=== PATIENT | female | born 2000 | race Caucasian/White ===

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

== ENCOUNTER 2019-01-21 00:02 | Emergency (ER) | payer BC, OTHER ==
[2019-01-21 00:08] VITALS: BP 135/73; PULSE 69; RESP 18; TEMP 97.8
--- NOTE | 2019-01-21 00:44 | ED ---
General Adult HPI - General Chief complaint: Urogenital Stated complaint: pelvic pain; blood in urine Time Seen by Provider: 01/21/19 00:11 Source: patient, RN notes reviewed, old records reviewed Mode of arrival: ambulatory Limitations: no limitations - History of Present Illness Initial comments: 18-year-old female patient past medical history of asthma, pseudoseizure disorder, borderline personality presents ED for chief complaint of suprapubic abdominal pain vaginal bleeding. Patient reports that her regular menstrual cycle ended 2 days ago. Patient points that today she began experiencing dysuria, mild amount of blood noted in her urine. Patient reports that her pains and suprapubic region. Denies any complaints at this time. Systemic: Pt denies fatigue, fever/chills, rash. Pt denies weakness, night sweats, weight loss. Neuro: Pt denies headache, visual disturbances, syncope or pre-syncope. HEENT: Pt denies ocular discharge or irritation, otalgia, rhinorrhea, pharyngitis or notable lymphadenopathy. Cardiopulmonary: Pt denies chest pain, SOB, heart palpitations, dyspnea on exertion. Abdominal/GI: Pt denies n/v/d. : Pt denies dysuria, burning w/ urination, frequency/urgency. Denies new onset urinary or bowel incontinence. MSK: Pt denies myalgia, loss of strength or function in extremities. Neuro: Pt denies new onset weakness, paresthesias. - Related Data Home Medications Medication Instructions Recorded Confirmed Gentle Iron 25mg 2 tab PO TID 05/30/18 11/14/18 Thyroid,Pork [Captain Cannery Tender Thyroid] 60 mg PO BID 05/30/18 11/14/18 Vitamin A-D-K 1 tab PO DAILY 05/30/18 11/14/18 Acetaminophen Tab [Tylenol] 1,000 mg PO Q6H PRN 11/14/18 11/14/18 Previous Rx's Medication Instructions Recorded Sulfamethox-Tmp 800-160Mg [Bactrim 1 tab PO Q12HR #14 tab 11/14/18 DS 800-160 mg] Nitrofurantoin Monohyd/M-Cryst 100 mg PO Q12HR 5 Days #10 cap 01/21/19 [Macrobid] Allergies Allergy/AdvReac Type Severity Reaction Status Date / Time milk Allergy Severe Rash/Hives Verified 01/21/19 00:08 amoxicillin [Amoxicillin] Allergy Anaphylaxis Verified 01/21/19 00:08 latex Allergy Rash/Hives Verified 01/21/19 00:08 Milk Containing Products Allergy Rash/Hives Verified 01/21/19 00:08 [Dairy] Review of Systems ROS Statement: Those systems with pertinent positive or pertinent negative responses have been documented in the HPI. ROS Other: All systems not noted in ROS Statement are negative. 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 anemia. boarderline personality disorder, History of Any Multi-Drug Resistant Organisms: None Reported Past Surgical History: Ear Surgery Additional Past Surgical History / Comment(s): PE tubes, Past Psychological History: ADD/ADHD, Anxiety, Depression Smoking Status: Current every day smoker Past Alcohol Use History: None Reported Past Drug Use History: None Reported General Exam - General Exam Comments Initial Comments: Constitutional: NAD, AOX3, Pt has pleasant affect. HEENT: NC/AT, trachea midline, neck supple, no lymphadenopathy. Posterior pharynx non erythematous, without exudates. External ears appear normal, without discharge. Mucous membranes moist. Eyes PERRLA, EOM intact. There is no scleral icterus. No pallor noted. Cardiopulmonary: RRR, no murmurs, rubs or gallops, no JVD noted. Lungs CTAB in anterior and posterior mirza. No peripheral edema. Abdominal exam: Abdomen soft and non-distended. Abdomen mildly tender to palpation suprapubic region.. Bowel sounds active in LLQ. No hepatosplenomegaly. No ecchymosis Neuro: CN II-XII grossly intact. No nuchal rigidity. No raccon eyes, no carpenter sign, no hemotympanum. No cervical spinal tenderness. MSK: No posterior calf tenderness bilaterally, homans sign negative bilaterally. Posterior tibialis and radial pulse +2 bilaterally. Sensation intact in upper and lower extremities. Full active ROM in upper and lower extremities, 5/5 stregnth. Limitations: no limitations Course Vital Signs 01/21/19 00:03 Temperature 97.8 F Pulse Rate 69 Respiratory 18 Rate Blood Pressure 135/73 O2 Sat by Pulse 99 Oximetry Medical Decision Making - Medical Decision Making 18-year-old female patient past medical history of asthma, pseudoseizure disorder, borderline personality presents ED for chief complaint of suprapubic abdominal pain vaginal bleeding. Patient reports that her regular menstrual cycle ended 2 days ago. Patient points that today she began experiencing dysuria, mild amount of blood noted in her urine. Patient reports that her pains and suprapubic region. Denies any complaints at this time. Patient vital signs displayed mild superpubic tenderness. Laboratory investigations revealed large leukocyte esterase, greater than 182 red blood cells and white blood cells. HCG negative. Patient be treated for a urinary tract infection. Will follow-up with her primary care provider next week. We'll turn ER physician worsens in any way. Case discussed with Dr. Gar. - Lab Data Lab Results 01/21/19 01/21/19 Range/Units 00:30 00:30 Urine Color Light Red Urine Appearance Cloudy H (Clear) Urine pH 6.0 (5.0-8.0) Ur Specific [place] 1.022 (1.001-1.035) Urine Protein 1+ H (Negative) Urine Glucose (UA) Negative (Negative) Urine Ketones Negative (Negative) Urine Blood Large H (Negative) Urine Nitrite Negative (Negative) Urine Bilirubin Negative (Negative) Urine Urobilinogen <2.0 (<2.0) mg/dL Ur Leukocyte Esterase Large H (Negative) Urine RBC >182 H (0-5) /hpf Urine WBC >182 H (0-5) /hpf Ur Squamous Epith Cells 3 (0-4) /hpf Urine Bacteria Rare H (None) /hpf Urine Mucus Occasional H (None) /hpf Urine HCG, Qual Not Detected (Not Detectd) Disposition Clinical Impression: Dysmenorrhea, UTI (urinary tract infection) Disposition: HOME SELF-CARE Condition: Stable Instructions (If sedation given, give patient instructions): Dysmenorrhea (ED), Urinary Tract Infection in Women (ED) Additional Instructions: take antibiotics as directed. Follow-up with primary care provider tomorrow. Return to ER if condition worsens in any way. Prescriptions: Nitrofurantoin Monohyd/M-Cryst [Macrobid] 100 mg PO Q12HR 5 Days #10 cap Is patient prescribed a controlled substance at d/c from ED?: No Referrals: Bill Ashley DO [Primary Care Provider] - 1-2 days
[2019-01-21 00:48] LABS: Appearance,Urine Cloudy (Clear); Bacteria,Urine Rare /hpf; Bilirubin,Urine Negative (Negative); Blood,Urine Large (Negative); Color,Urine Light Red; Glucose,Urine (UA) Negative (Negative); Ketones,Urine Negative (Negative); Leukocyte Esterase,Urine Large (Negative); Mucus,Urine Occasional /hpf; Nitrite,Urine Negative (Negative); Protein,Urine 1+ (Negative); RBC,Urine >182 /hpf (0-5); Specific Gravity,Urine 1.022 (1.001-1.035); Squamous Epithelial Cell,Urine 3 /hpf (0-4); Urobilinogen,Urine <2.0 mg/dL (<2.0)
[2019-01-21] MEDS ORDERED: NITROFURANTOIN MONOHYD/M-CRYST 100 MG CAP PO STA (01:05)
== END 2019-01-21 01:19 | disposition home or self-care (01) ==
LOC: EC 00:02
DX: N39.0 Urinary tract infection, site not specified (principal); N94.6 Dysmenorrhea, unspecified; E07.9 Disorder of thyroid, unspecified; D64.9 Anemia, unspecified; F17.200 Nicotine dependence, unspecified, uncomplicated; Z88.0 Allergy status to penicillin; Z91.011 Allergy to milk products; Z91.040 Latex allergy status; Z79.890 Hormone replacement therapy; Z79.899 Other long term (current) drug therapy; Z87.19 Personal history of other diseases of the digestive system
CPT/HCPCS: 81001; 81025; 87077; 87086; 87186; 99284

== ENCOUNTER 2019-05-21 15:42 | Emergency (ER) | payer BC, OTHER ==
[2019-05-21 15:55] VITALS: TEMP 98.7
[2019-05-21] MEDS ORDERED: METOCLOPRAMIDE 5 MG/ML 2 ML VIAL IVP STA (16:04)
[2019-05-21] MEDS ORDERED: diphenhydrAMINE 50 MG/ML 1 ML VIAL IVP STA (16:04)
[2019-05-21] MEDS ORDERED: SODIUM CHLORIDE 0.9% 2,000 ML IV STA (16:04)
--- NOTE | 2019-05-21 16:11 | ED ---
General Adult HPI - General Chief complaint: GI Bleed Stated complaint: vomiting up blood/Preg 17wks Time Seen by Provider: 05/21/19 15:57 Source: patient, RN notes reviewed Mode of arrival: ambulatory Limitations: no limitations - History of Present Illness Initial comments: This a 18-year-old female presents emergency Department chief complaint of rob sea vomiting. Patient states he vomited last week states that her last episode today that she self small amount of bright red blood. Patient has no complaints of abdominal pain denies any vaginal bleeding or vaginal discharge. Patient is A1 currently 17 weeks . Patient states that she seen Dr. Up. Patient does not that was normal though she started having difficulty with her asthma states that she has some coughing but that has improved. No chest pain no current shortness of breath. No fevers or chills. - Related Data Home Medications Medication Instructions Recorded Confirmed Gentle Iron 25mg 2 tab PO BID 05/30/18 05/21/19 Acetaminophen Tab [Tylenol] 1,000 mg PO Q6H PRN 11/14/18 05/21/19 [id number] Acid 1 cap PO DAILY 05/21/19 05/21/19 [-U Capsule (formulary)] Thyroid,Pork [Recoil Spring Winder Thyroid] 90 mg PO BID 05/21/19 05/21/19 Previous Rx's Medication Instructions Recorded Metoclopramide [Reglan] 10 mg PO TID PRN #10 tab 05/21/19 Allergies Allergy/AdvReac Type Severity Reaction Status Date / Time milk Allergy Severe Rash/Hives Verified 05/21/19 16:43 amoxicillin [Amoxicillin] Allergy Anaphylaxis Verified 05/21/19 16:43 latex Allergy Rash/Hives Verified 05/21/19 16:43 Milk Containing Products Allergy Rash/Hives Verified 05/21/19 16:43 [Dairy] Review of Systems ROS Statement: Those systems with pertinent positive or pertinent negative responses have been documented in the HPI. ROS Other: All systems not noted in ROS Statement are negative. 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 anemia. boarderline personality disorder, History of Any Multi-Drug Resistant Organisms: None Reported Past Surgical History: Ear Surgery Additional Past Surgical History / Comment(s): PE tubes, Past Psychological History: ADD/ADHD, Anxiety, Depression Smoking Status: Former smoker Past Alcohol Use History: None Reported Past Drug Use History: None Reported General Exam Limitations: no limitations General appearance: alert, in no apparent distress Head exam: Present: atraumatic, normocephalic, normal inspection Eye exam: Present: normal appearance, PERRL, EOMI. Absent: scleral icterus, conjunctival injection, periorbital swelling ENT exam: Present: normal exam, normal oropharynx, mucous membranes moist Neck exam: Present: normal inspection. Absent: tenderness, meningismus, lymphadenopathy Respiratory exam: Present: normal lung sounds bilaterally. Absent: respiratory distress, wheezes, rales, rhonchi, stridor Cardiovascular Exam: Present: regular rate, normal rhythm, normal heart sounds. Absent: systolic murmur, diastolic murmur, rubs, gallop, clicks GI/Abdominal exam: Present: soft, tenderness (Minimal epigastric), normal bowel sounds. Absent: distended, guarding, rebound, rigid Back exam: Absent: CVA tenderness (R), CVA tenderness (L) Neurological exam: Present: alert, oriented X3, CN II-XII intact Skin exam: Present: warm, dry, intact, normal color. Absent: rash Course Vital Signs 05/21/19 05/21/19 15:46 15:55 Temperature 98.7 F Pulse Rate 86 Respiratory 18 20 Rate Blood Pressure 101/63 O2 Sat by Pulse 98 Oximetry - Reevaluation(s) Reevaluation #1: 05/21/19 17:41 Patient reevaluated resting comfortably in bed updated and results has no complaints at this time. Medical Decision Making - Medical Decision Making Patient's presented for nausea vomiting. She is well hydrated 2 L of fluid, antiemetics given. Patient's labwork is unremarkable she has no complaints at this time. This may related to her or viral GI illness. - Lab Data Result diagrams: 05/21/19 16:24 05/21/19 16:24 Lab Results 05/21/19 05/21/19 05/21/19 Range/Units 16:24 16:24 16:45 WBC 7.8 (4.0-11.0) k/uL RBC 4.03 (3.80-5.40) m/uL Hgb 13.0 (11.4-16.0) gm/dL Hct 37.1 (34.0-46.0) % MCV 92.0 (80.0-100.0) fL MCH 32.3 (25.0-35.0) pg MCHC 35.2 (31.0-37.0) g/dL RDW 12.9 (11.5-15.5) % Plt Count 186 (150-450) k/uL Neutrophils % 74 % Lymphocytes % 18 % Monocytes % 5 % Eosinophils % 1 % Basophils % 0 % Neutrophils # 5.8 (1.3-7.7) k/uL Lymphocytes # 1.4 (1.0-4.8) k/uL Monocytes # 0.4 (0-1.0) k/uL Eosinophils # 0.1 (0-0.7) k/uL Basophils # 0.0 (0-0.2) k/uL Sodium 134 L (137-145) mmol/L Potassium 4.1 (3.5-5.1) mmol/L Chloride 105 (98-107) mmol/L Carbon Dioxide 22 (22-30) mmol/L Anion Gap 7 mmol/L BUN 6 L (7-17) mg/dL Creatinine 0.49 L (0.52-1.04) mg/dL Est GFR (CKD-EPI)AfAm >90 (>60 ml/min/1.73 sqM) Est GFR (CKD-EPI)NonAf >90 (>60 ml/min/1.73 sqM) Glucose 83 (74-99) mg/dL Calcium 9.7 (8.4-10.2) mg/dL Total Bilirubin 0.2 (0.2-1.3) mg/dL AST 20 (14-36) U/L ALT 12 (4-34) U/L Alkaline Phosphatase 67 (38-126) U/L Total Protein 7.1 (6.3-8.2) g/dL Albumin 4.3 (3.5-5.0) g/dL Amylase 68 (30-110) U/L Lipase 65 (23-300) U/L Urine Color Yellow Urine Appearance Clear (Clear) Urine pH 7.0 (5.0-8.0) Ur Specific [place] 1.014 (1.001-1.035) Urine Protein Negative (Negative) Urine Glucose (UA) Negative (Negative) Urine Ketones 2+ H (Negative) Urine Blood Negative (Negative) Urine Nitrite Negative (Negative) Urine Bilirubin Negative (Negative) Urine Urobilinogen <2.0 (<2.0) mg/dL Ur Leukocyte Esterase Negative (Negative) Disposition Clinical Impression: Nausea & vomiting Disposition: HOME SELF-CARE Condition: Stable Instructions (If sedation given, give patient instructions): Nausea and Vomiting in (ED) Additional Instructions: Please return to the Emergency Department if symptoms worsen or any other concer ns. Prescriptions: Metoclopramide [Reglan] 10 mg PO TID PRN #10 tab PRN Reason: GERD Is patient prescribed a controlled substance at d/c from ED?: No Referrals: Bill Ashley DO [Primary Care Provider] - 1-2 days Time of Disposition: 17:43
[2019-05-21 16:40] LABS: Basophils % (A) 0 %; Eosinophils # (A) 0.1 k/uL (0-0.7); Eosinophils % (A) 1 %; HCT 37.1 % (34.0-46.0); Lymphocytes # (A) 1.4 k/uL (1.0-4.8); Lymphocytes % (A) 18 %; MCH 32.3 pg (25.0-35.0); MCHC 35.2 g/dL (31.0-37.0); Mean Platelet Volume 9.1; Monocytes # (A) 0.4 k/uL (0-1.0); Monocytes % (A) 5 %; Neutrophils # (A) 5.8 k/uL (1.3-7.7); Neutrophils % (A) 74 %; Platelet Count 186 k/uL (150-450); RBC 4.03 m/uL (3.80-5.40); RDW 12.9 % (11.5-15.5); WBC 7.8 k/uL (4.0-11.0)
[2019-05-21 16:54] VITALS: RESP 20
[2019-05-21 17:02] LABS: ALT 12 U/L (4-34); AST 20 U/L (14-36); African American GFR (CKD) >90 (>60 ml/min/1.73 sqM); Albumin 4.3 g/dL (3.5-5.0); Alkaline Phosphatase 67 U/L (38-126); Amylase 68 U/L (30-110); Anion Gap 7 mmol/L; Blood Urea Nitrogen 6 mg/dL (7-17); Calcium 9.7 mg/dL (8.4-10.2); Carbon Dioxide 22 mmol/L (22-30); Chloride 105 mmol/L (98-107); Glucose 83 mg/dL (74-99); Non-African American GFR(CKD) >90 (>60 ml/min/1.73 sqM); Potassium 4.1 mmol/L (3.5-5.1); Sodium 134 mmol/L (137-145); Total Bilirubin 0.2 mg/dL (0.2-1.3); Total Protein 7.1 g/dL (6.3-8.2)
[2019-05-21 17:22] LABS: Appearance,Urine Clear (Clear); Bilirubin,Urine Negative (Negative); Blood,Urine Negative (Negative); Color,Urine Yellow; Glucose,Urine (UA) Negative (Negative); Ketones,Urine 2+ (Negative); Leukocyte Esterase,Urine Negative (Negative); Nitrite,Urine Negative (Negative); Protein,Urine Negative (Negative); Specific Gravity,Urine 1.014 (1.001-1.035); Urobilinogen,Urine <2.0 mg/dL (<2.0)
[2019-05-21 18:34] VITALS: BP 115/62; PULSE 88
== END 2019-05-21 18:40 | disposition home or self-care (01) ==
LOC: EC 15:42
DX: O21.9 Vomiting of pregnancy, unspecified (principal); O99.282 Endocrine, nutritional and metabolic diseases complicating pregnancy, second trimester; E07.9 Disorder of thyroid, unspecified; Z87.891 Personal history of nicotine dependence; Z3A.17 17 weeks gestation of pregnancy; Z79.899 Other long term (current) drug therapy; Z91.011 Allergy to milk products; Z88.0 Allergy status to penicillin; Z91.040 Latex allergy status
CPT/HCPCS: 36415; 80053; 82150; 83690; 85025; 81003; 99284; 96374; 96375; 96361 ×2; J1200; J2765

== ENCOUNTER → 2019-07-11 | Outpatient (CLI) | payer BC, OTHER | END | disposition home or self-care (01) | LOC: LABWHC1 08:08 | PROVIDERS: ATTEND Obstetrics & Gynecology | DX: O99.519 Diseases of the respiratory system complicating pregnancy, unspecified trimester (principal); R05 Cough ==

== ENCOUNTER 2019-07-13 17:10 | Outpatient (CLI) | payer BC, OTHER ==
[2019-07-13 18:15] LABS: Appearance,Urine Clear (Clear); Bacteria,Urine Rare /hpf; Bilirubin,Urine Negative (Negative); Blood,Urine Negative (Negative); Color,Urine Yellow; Glucose,Urine (UA) Negative (Negative); Ketones,Urine Negative (Negative); Leukocyte Esterase,Urine Small (Negative); Nitrite,Urine Negative (Negative); PH, Urine 6.5 (5.0-8.0); Protein,Urine Negative (Negative); RBC,Urine <1 /hpf (0-5); Specific Gravity,Urine 1.014 (1.001-1.035); Squamous Epithelial Cell,Urine 2 /hpf (0-4); Urobilinogen,Urine <2.0 mg/dL (<2.0); WBC,Urine 1 /hpf (0-5)
[2019-07-13 19:16] VITALS: BP 113/59; PULSE 96; RESP 16; TEMP 97.9
== END 2019-07-13 19:00 | disposition home or self-care (01) ==
LOC: FBPOP 17:10
PROVIDERS: ATTEND Obstetrics & Gynecology
DX: O99.89 Other specified diseases and conditions complicating pregnancy, childbirth and the puerperium (principal); R25.2 Cramp and spasm; Z3A.24 24 weeks gestation of pregnancy
CPT/HCPCS: 81001; 99213

== ENCOUNTER 2019-07-16 15:17 | Outpatient (CLI) | payer BC, OTHER ==
[2019-07-16 15:55] LABS: Amorphous Sediment,Urine Few /hpf; Appearance,Urine Cloudy (Clear); Bilirubin,Urine Negative (Negative); Blood,Urine Negative (Negative); Color,Urine Yellow; Glucose,Urine (UA) Negative (Negative); Ketones,Urine Negative (Negative); Leukocyte Esterase,Urine Trace (Negative); Nitrite,Urine Negative (Negative); Protein,Urine Negative (Negative); RBC,Urine 2 /hpf (0-5); Specific Gravity,Urine 1.018 (1.001-1.035); Squamous Epithelial Cell,Urine 3 /hpf (0-4); Urobilinogen,Urine <2.0 mg/dL (<2.0); WBC,Urine 3 /hpf (0-5)
[2019-07-16 16:14] VITALS: BP 121/57; PULSE 106; RESP 16; TEMP 97
--- NOTE | 2019-07-26 13:02 | P.MSEPDOC ---
Presenting Problems - Arrival Data Date of Arrival on Unit: 07/16/19 Time of Arrival on Unit: 15:17 Mode of Transport: Wheelchair - Complaint OB-Reason for Admission/Chief Complaint: Pain Comment: Cramping in left flank, lower back and left pelvis x 2 hrs, worsening after walking up[place] today. Medical History - Information : 2 Para: 0 Term: 0 : 0 Abortions: Spontaneous or Elective: 0 Number of Living Children: 0 - Gestational Age Gestational Age by BLADIMIR (wks/days): 24 Weeks and 6 Days Review of Systems - Review of Systems Constitutional: No problems Breast: No problems ENT: No problems Cardiovascular: No problems Respiratory: No problems Gastrointestinal: No problems Genitourinary: Urgency, Increased frequency Musculoskeletal: No problems Neurological: No problems Skin: No problems Vital Signs - Temperature Temperature: 97 F Temperature Source: Temporal Artery Scan - Pulse Right Sitting Brachial Pulse Rate: 106 Pulse Assessment Method: Automatic Cuff - Respirations Respiratory Rate: 16 Oxygen Delivery Method: Room Air O2 Sat by Pulse Oximetry: 98 - Blood Pressure Right Arm Sitting Blood Pressure: 121/57 Blood Pressure Mean: 78 Blood Pressure Source: Automatic Cuff Medical Screen Scoring (Pre) - Cervical Exam Dilation: Exam Deferred Effacement: Exam Deferred Membranes: Intact - Uterine Contractions Frequency: N/A Duration: N/A Intensity: N/A - Maternal Vital Signs Maternal Temperature: N/A Maternal Blood Pressure: N/A Signs of Preeclampsia: N/A Maternal Respirations: N/A - Maternal Trauma Maternal Trauma: N/A - Assessment - Baby A Baseline FHR: 150 Position: N/A Station: N/A - Total Score - Baby A Total Score - Baby A: 0 - Total Score - Baby B Total Score - Baby B: 0 - Total Score - Baby C Total Score - Baby C: 0 - Level of Risk - Baby A Level of Risk - Baby A: Low (0-5) - Level of Risk - Baby B Level of Risk - Baby B: Low (0-5) - Level of Risk - Baby C Level of Risk - Baby C: Low (0-5) Physician Notification (Pre) - Physician Notified Physician Notified Date: 07/16/19 Physician Notified Time: 16:05 New Order Received: Yes - Notification Comment Comment: Christie Nava, advsd , [birth year] 07/15, reports to triage c/o cramping x 2 hrs, worsening after walking uphill. FHT 150-160, abd soft, tenderness in L flank and L pelvic, UA results provided. Pt in triage 3 days ago with same concern. Dr. Nava orders urine culture, pt to be on pelvic rest and follow up with Dr. Up. Disposition - Disposition OB Disposition: Discharge to home, Written follow up instructions reviewed Discharge Date: 07/16/19 Discharge Time: 16:14 I agree with the RN Medical Screening Exam: Yes Risk & Benefit of care provided described in d/c instruction: Yes Diagnosis: PAIN, UNSPECIFIED
== END 2019-07-16 16:14 | disposition home or self-care (01) ==
LOC: FBPOP 15:17
PROVIDERS: ATTEND Obstetrics & Gynecology Obstetrics
DX: O99.89 Other specified diseases and conditions complicating pregnancy, childbirth and the puerperium (principal); R52 Pain, unspecified
CPT/HCPCS: 81001; 87086; 99213

== ENCOUNTER 2019-09-13 13:36 | Outpatient (CLI) | payer BC, OTHER ==
[2019-09-13 14:27] VITALS: BP 115/56; PULSE 103; RESP 16; TEMP 98.1
--- NOTE | 2019-09-27 08:49 | P.MSEPDOC ---
Presenting Problems - Arrival Data Date of Arrival on Unit: 09/13/19 Time of Arrival on Unit: 13:36 Mode of Transport: Ambulatory - Complaint OB-Reason for Admission/Chief Complaint: Decreased Movement Medical History - Information : 2 Para: 0 Term: 0 : 0 Abortions: Spontaneous or Elective: 1 Number of Living Children: 0 - Gestational Age Gestational Age by BLADIMIR (wks/days): 33 Weeks and 2 Days Review of Systems - Review of Systems Constitutional: No problems Breast: No problems ENT: No problems Cardiovascular: No problems Respiratory: No problems Gastrointestinal: No problems Genitourinary: No problems Musculoskeletal: No problems Neurological: No problems Skin: No problems Vital Signs - Temperature Temperature: 98.1 F Temperature Source: Temporal Artery Scan - Pulse Pulse Oximetery Pulse Rate: 103 Pulse Assessment Method: Pulse Oximetry - Respirations Respiratory Rate: 16 Oxygen Delivery Method: Room Air - Blood Pressure Right Arm Blood Pressure: 115/56 Blood Pressure Mean: 75 Blood Pressure Source: Automatic Cuff Medical Screen Scoring (Pre) - Cervical Exam Dilation: Exam Deferred Effacement: Exam Deferred Membranes: Intact - Uterine Contractions Frequency: N/A Duration: N/A Intensity: N/A - Maternal Vital Signs Maternal Temperature: N/A Maternal Blood Pressure: N/A Signs of Preeclampsia: N/A Maternal Respirations: N/A - Maternal Trauma Maternal Trauma: N/A - Assessment - Baby A Baseline FHR: 150 Heart Rate - NICHD Category: Category I (Normal) = 0 NST: Reactive Position: N/A Station: N/A - Total Score - Baby A Total Score - Baby A: 0 - Total Score - Baby B Total Score - Baby B: 0 - Total Score - Baby C Total Score - Baby C: 0 - Level of Risk - Baby A Level of Risk - Baby A: Low (0-5) - Level of Risk - Baby B Level of Risk - Baby B: Low (0-5) - Level of Risk - Baby C Level of Risk - Baby C: Low (0-5) Physician Notification (Pre) - Physician Notified Physician Notified Date: 09/13/19 Physician Notified Time: 14:14 New Order Received: Yes Disposition - Disposition OB Disposition: Discharge to home Discharge Date: 09/13/19 Discharge Time: 14:20 I agree with the RN Medical Screening Exam: Yes Risk & Benefit of care provided described in d/c instruction: Yes Diagnosis: decreased movement
== END 2019-09-13 14:20 | disposition home or self-care (01) ==
LOC: FBPOP 13:36
PROVIDERS: ATTEND Obstetrics & Gynecology
DX: O36.8130 Decreased fetal movements, third trimester, not applicable or unspecified (principal); Z3A.33 33 weeks gestation of pregnancy
CPT/HCPCS: 59025; 99213

== ENCOUNTER 2019-09-27 13:19 | Outpatient (CLI) | payer BC, OTHER ==
[2019-09-27 15:27] VITALS: BP 105/62; PULSE 95; RESP 16; TEMP 98.4
--- NOTE | 2019-10-08 10:12 | P.MSEPDOC ---
Presenting Problems - Arrival Data Date of Arrival on Unit: 09/27/19 Time of Arrival on Unit: 13:36 Mode of Transport: Wheelchair - Complaint OB-Reason for Admission/Chief Complaint: Rule Out PROM Comment: pt arrived to unit c/o a gush of fluid times one approximately 30 minutes ago and states im not sure if my water broke. pt denies any leaking at this time and denies any contractions Medical History - Information : 1 Para: 0 Term: 0 : 0 Abortions: Spontaneous or Elective: 0 Number of Living Children: 0 - Gestational Age Gestational Age by BLADIMIR (wks/days): 35 Weeks and 2 Days Review of Systems - Review of Systems Constitutional: No problems Breast: No problems ENT: No problems Cardiovascular: No problems Respiratory: No problems Gastrointestinal: No problems Genitourinary: No problems Musculoskeletal: No problems Neurological: No problems Skin: No problems Vital Signs - Temperature Temperature: 98.4 F Temperature Source: Oral - Pulse Right Brachial Pulse Rate: 95 Pulse Assessment Method: Automatic Cuff - Respirations Respiratory Rate: 16 Oxygen Delivery Method: Room Air O2 Sat by Pulse Oximetry: 97 - Blood Pressure Right Arm Blood Pressure: 105/62 Blood Pressure Mean: 76 Blood Pressure Source: Automatic Cuff Medical Screen Scoring (Pre) - Cervical Exam Dilation: 0 cm = 0 Membranes: Intact - Uterine Contractions Frequency: N/A Duration: N/A Intensity: N/A - Maternal Vital Signs Maternal Temperature: N/A Maternal Blood Pressure: N/A Signs of Preeclampsia: N/A Maternal Respirations: N/A - Maternal Trauma Maternal Trauma: N/A - Assessment - Baby A Baseline FHR: 145 Heart Rate - NICHD Category: Category I (Normal) = 0 NST: Reactive Position: N/A Station: N/A - Total Score - Baby A Total Score - Baby A: 0 - Total Score - Baby B Total Score - Baby B: 0 - Total Score - Baby C Total Score - Baby C: 0 - Level of Risk - Baby A Level of Risk - Baby A: Low (0-5) - Level of Risk - Baby B Level of Risk - Baby B: Low (0-5) - Level of Risk - Baby C Level of Risk - Baby C: Low (0-5) Physician Notification (Pre) - Physician Notified Physician Notified Date: 09/27/19 Physician Notified Time: 14:12 New Order Received: Yes - Notification Comment Comment: amnisure test done and negative cervix closed reactive nst no contractions. may discharge to home with instructions Disposition - Disposition OB Disposition: Discharge to home Discharge Date: 09/27/19 Discharge Time: 14:22 I agree with the RN Medical Screening Exam: Yes Risk & Benefit of care provided described in d/c instruction: Yes Diagnosis: false labor
== END 2019-09-27 14:22 | disposition home or self-care (01) ==
LOC: FBPOP 13:19
PROVIDERS: ATTEND Obstetrics & Gynecology
DX: O47.9 False labor, unspecified (principal); Z3A.35 35 weeks gestation of pregnancy
CPT/HCPCS: 59025; 84112; 99213

== ENCOUNTER 2019-10-08 00:24 | Outpatient (CLI) | payer BC, OTHER ==
[2019-10-08 01:23] VITALS: BP 125/60; PULSE 91; RESP 16; TEMP 97.9
--- NOTE | 2019-11-22 07:37 | P.MSEPDOC ---
Presenting Problems - Arrival Data Date of Arrival on Unit: 10/08/19 Time of Arrival on Unit: 00:24 Mode of Transport: Ambulatory - Complaint OB-Reason for Admission/Chief Complaint: Pain Comment: Right sided lower back pain, 11/17. Pt on macrobid for UTI started 10/06/19 Medical History - Information : 2 Para: 0 Term: 0 : 0 Abortions: Spontaneous or Elective: 0 Number of Living Children: 0 - Gestational Age Gestational Age by BLADIMIR (wks/days): 36 Weeks and 6 Days Review of Systems - Review of Systems Constitutional: No problems Breast: No problems ENT: No problems Cardiovascular: No problems Respiratory: No problems Gastrointestinal: No problems Genitourinary: No problems Musculoskeletal: No problems Neurological: No problems Skin: No problems Vital Signs - Temperature Temperature: 97.9 F Temperature Source: Oral - Pulse Brachial Pulse Rate: 91 Pulse Assessment Method: Automatic Cuff - Respirations Respiratory Rate: 16 Oxygen Delivery Method: Room Air O2 Sat by Pulse Oximetry: 97 - Blood Pressure Right Arm Blood Pressure: 125/60 Blood Pressure Mean: 81 Blood Pressure Source: Automatic Cuff Medical Screen Scoring (Pre) - Cervical Exam Dilation: Exam Deferred Effacement: Exam Deferred Membranes: Intact - Uterine Contractions Frequency: > 5 minutes apart = 1 Duration: > 40 seconds = 2 Intensity: N/A - Maternal Vital Signs Maternal Temperature: N/A Maternal Blood Pressure: N/A Signs of Preeclampsia: N/A Maternal Respirations: N/A - Maternal Trauma Maternal Trauma: N/A - Assessment - Baby A Baseline FHR: 130 Heart Rate - NICHD Category: Category I (Normal) = 0 NST: Reactive - Total Score - Baby A Total Score - Baby A: 3 - Total Score - Baby B Total Score - Baby B: 3 - Total Score - Baby C Total Score - Baby C: 3 - Level of Risk - Baby A Level of Risk - Baby A: Low (0-5) - Level of Risk - Baby B Level of Risk - Baby B: Low (0-5) - Level of Risk - Baby C Level of Risk - Baby C: Low (0-5) Physician Notification (Pre) - Physician Notified Physician Notified Date: 10/08/19 Physician Notified Time: 00:51 New Order Received: Yes - Notification Comment Comment: Orders to d/c pt home at this time, call the office wednesday if still having s/s of UTI for another UA. Disposition - Disposition OB Disposition: Discharge to home, Written follow up instructions reviewed Discharge Date: 10/08/19 Discharge Time: 00:56 I agree with the RN Medical Screening Exam: Yes Risk & Benefit of care provided described in d/c instruction: Yes Diagnosis: back pain in
== END 2019-10-08 00:56 | disposition home or self-care (01) ==
LOC: FBPOP 00:24
PROVIDERS: ATTEND Obstetrics & Gynecology
DX: O99.89 Other specified diseases and conditions complicating pregnancy, childbirth and the puerperium (principal); Z3A.36 36 weeks gestation of pregnancy
CPT/HCPCS: 59025; 99213

== ENCOUNTER 2019-10-25 14:52 | Outpatient (CLI) | payer BC, OTHER ==
[2019-10-25 19:32] VITALS: BP 123/57; PULSE 91; RESP 18; TEMP 98.1
--- NOTE | 2019-11-22 07:47 | P.MSEPDOC ---
Presenting Problems - Arrival Data Date of Arrival on Unit: 10/25/19 Time of Arrival on Unit: 14:52 Mode of Transport: Ambulatory - Complaint OB-Reason for Admission/Chief Complaint: Possible Onset of Labor Comment: pt presents with contractions every 5 min per patient rating at 6/10 Medical History - Information : 1 Para: 0 Term: 0 : 0 Abortions: Spontaneous or Elective: 0 Number of Living Children: 0 - Gestational Age Gestational Age by BLADIMIR (wks/days): 39 Weeks and 2 Days Review of Systems - Review of Systems Constitutional: No problems Breast: No problems ENT: No problems Cardiovascular: No problems Respiratory: No problems Gastrointestinal: No problems Genitourinary: No problems Musculoskeletal: No problems Neurological: No problems Skin: No problems Vital Signs - Temperature Temperature: 98.1 F Temperature Source: Temporal Artery Scan - Pulse Right Brachial Pulse Rate: 91 Pulse Assessment Method: Automatic Cuff - Respirations Respiratory Rate: 18 Oxygen Delivery Method: Room Air - Blood Pressure Right Arm Blood Pressure: 123/57 Blood Pressure Mean: 79 Blood Pressure Source: Automatic Cuff Medical Screen Scoring (Pre) - Cervical Exam Dilation: 1-3 cm = 1 Effacement: Exam Deferred Membranes: Intact - Uterine Contractions Frequency: > 5 minutes apart = 1 Duration: N/A Intensity: N/A - Maternal Vital Signs Maternal Temperature: N/A Maternal Blood Pressure: N/A Signs of Preeclampsia: N/A Maternal Respirations: N/A - Maternal Trauma Maternal Trauma: N/A - Assessment - Baby A Baseline FHR: 140 Heart Rate - NICHD Category: Category I (Normal) = 0 NST: Reactive Position: N/A Station: N/A - Total Score - Baby A Total Score - Baby A: 2 - Total Score - Baby B Total Score - Baby B: 2 - Total Score - Baby C Total Score - Baby C: 2 - Level of Risk - Baby A Level of Risk - Baby A: Low (0-5) - Level of Risk - Baby B Level of Risk - Baby B: Low (0-5) - Level of Risk - Baby C Level of Risk - Baby C: Low (0-5) Physician Notification (Pre) - Physician Notified Physician Notified Date: 10/25/19 Physician Notified Time: 17:00 New Order Received: Yes - Notification Comment Comment: discharge pt home, call office tomorrow to make appt in office to discuss induction Disposition - Disposition OB Disposition: Triage, Discharge to home Discharge Date: 10/25/19 Discharge Time: 17:10 I agree with the RN Medical Screening Exam: Yes Risk & Benefit of care provided described in d/c instruction: Yes Diagnosis: false labor
== END 2019-10-25 17:10 | disposition home or self-care (01) ==
LOC: FBPOP 14:52
PROVIDERS: ATTEND Obstetrics & Gynecology
DX: O47.1 False labor at or after 37 completed weeks of gestation (principal); Z3A.39 39 weeks gestation of pregnancy
CPT/HCPCS: 59025; 84112; 99213

== ENCOUNTER 2019-10-30 15:13 | Inpatient (IN) | payer BC, OTHER ==
[2019-10-31] MEDS: LACTATED RINGERS 1,000 ML IV SCH ×4 (06:07→18:54)
[2019-10-31] MEDS ORDERED: TERBUTALINE 1 MG/ML VIAL SQ PRN (06:10)
[2019-10-31] MEDS ORDERED: METHYLERGONOVINE 0.2 MG/ML 1 ML AMP IM PRN (06:10)
[2019-10-31] MEDS ORDERED: LIDOCAINE 0.5% (PF) 5 MG/ML (50 ML SDV) SQ PRN (06:10)
[2019-10-31] MEDS ORDERED: CARBOPROST TROMETHAMINE 250 MCG/ML 1 ML AMP IM PRN (06:10)
[2019-10-31] MEDS ORDERED: OXYTOCIN 10 UNIT/ML 1 ML VIAL IM PRN (06:10)
[2019-10-31] MEDS ORDERED: OXYTOCIN 30 UNITS/500 ML NS 30 UNIT in SALINE 1 500ML.BAG IV SCH (06:15)
[2019-10-31 06:32] LABS: Basophils # (A) 0.1 k/uL (0-0.2); Basophils % (A) 1 %; Eosinophils # (A) 0.1 k/uL (0-0.7); Eosinophils % (A) 1 %; HCT 38.4 % (34.0-46.0); HGB 12.9 gm/dL (11.4-16.0); Lymphocytes # (A) 1.8 k/uL (1.0-4.8); Lymphocytes % (A) 21 %; MCH 31.2 pg (25.0-35.0); MCHC 33.4 g/dL (31.0-37.0); MCV 93.4 fL (80.0-100.0); Mean Platelet Volume 9.2; Monocytes # (A) 0.7 k/uL (0-1.0); Monocytes % (A) 9 %; Neutrophils # (A) 5.8 k/uL (1.3-7.7); Neutrophils % (A) 67 %; Platelet Count 192 k/uL (150-450); RBC 4.12 m/uL (3.80-5.40); WBC 8.6 k/uL (4.0-11.0)
--- NOTE | 2019-10-31 11:04 | P.HPOB ---
History of Present Illness H&P Date: 10/31/19 Chief Complaint: Maternal siezure disorder This is a 19-year-old 2 para 0010 woman with an estimated due date of 10/30/2019 based on first trimester ultrasound who is admitted at 40-0/7 weeks gestation for induction of labor. Her has been complicated by a history of seizure disorder. 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 She was restarted on her Keppra seizure prophylaxis early in however has had a difficult time remaining compliant with this medication. Most recent Levels drawn at approximately 36 weeks were subtherapeutic. She reports she has been back on her Keppra consistently for approximately 2 weeks of she did not take it today. Her last reported seizure activity was on between 20 and 25 weeks. She also has a history of significant depression and has been intermittently taking Zoloft. She has hypothyroidism and asthma which also have been monitored. She has been similarly on noncompliant with her thyroid medications and in the third trimester her TSH was 7.6. She again reports having restarted her thyroid medication in the last 2 weeks. She uses updrafts and an albuterol inhaler as needed for her asthma. She has been monitored by testing with NSTs weekly which have been reassuring. Obstetric history is significant for 2018 first trimester miscarriage. Laboratory data: Blood type A-, antibody screen negative, rubella immune, VDRL nonreactive, hepatitis B surface antigen negative, HIV negative, gonorrhea and c linic cultures negative, diabetes screening within normal limits, group B strep cultures negative. Recent TSH on 10/02/2019 was 7.62. Review of Systems Constitutional: Reports as per HPI 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. anemia. History of Any Multi-Drug Resistant Organisms: None Reported Past Surgical History: Ear Surgery Additional Past Surgical History / Comment(s): PE tubes, Past Anesthesia/Blood Transfusion Reactions: No Reported Reaction Past Psychological History: ADD/ADHD, Anxiety, Bipolar, Depression Additional Psychological History / Comment(s): borderline personality disorder Smoking Status: Former smoker Past Alcohol Use History: None Reported Past Drug Use History: None Reported - Past Family History Mother Family Medical History: No Reported History Medications and Allergies Home Medications Medication Instructions Recorded Confirmed Type Gentle Iron 25mg 2 tab PO TID 05/30/18 10/31/19 History Ijo-Wvya-Arimk Acid 1 cap PO DAILY 05/21/19 10/31/19 History [-U Capsule (formulary)] Thyroid,Pork [Activity Aide Thyroid] 90 mg PO BID 05/21/19 10/31/19 History levETIRAcetam [Keppra] 500 mg PO DAILY 07/16/19 10/31/19 History Sertraline [Zoloft] 50 mg PO DAILY 09/27/19 10/31/19 History ARIPiprazole [Abilify] 5 mg PO DAILY 10/28/19 10/31/19 History Albuterol Sulfate (Bottle) 0 mg INHALATION PRN 10/31/19 History [Ventolin] Allergies Allergy/AdvReac Type Severity Reaction Status Date / Time milk Allergy Severe Rash/Hives Verified 10/31/19 06:08 amoxicillin [Amoxicillin] Allergy Anaphylaxis Verified 10/31/19 06:08 latex Allergy Rash/Hives Verified 10/31/19 06:08 Milk Containing Products Allergy Rash/Hives Verified 10/31/19 06:08 [Dairy] Exam Vital Signs Temp Pulse Resp BP Pulse Ox 10/31/19 06:12 97.2 F L 96 18 114/77 98 Intake and Output 10/30/19 10/31/19 10/31/19 22:59 06:59 14:59 Other: Weight 86.183 kg This is a pleasant, comfortable appearing and visibly gravid female. Targeted physical exam is performed. The cervix is 3 cm dilated, 60% effaced and the vertex in the -2 station. heart tones are category 1. She is irregularly tammie with Pitocin at 8 mU/m. Results Result Diagrams: 10/31/19 06:12 Assessment and Plan (1) Term Current Visit: Yes Status: Acute Code(s): Z34.90 - ENCNTR FOR SUPRVSN OF NORMAL , UNSP, UNSP TRIMESTER SNOMED Code(s): 38019192 (2) Seizure disorder during Current Visit: Yes Status: Acute Code(s): O99.350 - DISEASES OF THE NERVOUS SYS COMP , UNSP TRIMESTER; G40.909 - EPILEPSY, UNSP, NOT INTRACTABLE, WITHOUT STATUS EPILEPTICUS SNOMED Code(s): 748605469 (3) Hypothyroid Current Visit: Yes Status: Acute Code(s): E03.9 - HYPOTHYROIDISM, UNSPECIFIED SNOMED Code(s): 41715640 (4) Asthma Current Visit: Yes Status: Acute Code(s): J45.909 - UNSPECIFIED ASTHMA, UNCOMPLICATED SNOMED Code(s): 106893952 (5) Depression Current Visit: Yes Status: Acute Code(s): F32.9 - MAJOR DEPRESSIVE DISORDER, SINGLE EPISODE, UNSPECIFIED SNOMED Code(s): 48291620 Plan: 19-year-old 2 para 0 woman admitted at 40 weeks gestation for induction of labor. complicated by seizure disorder and hypothyroidism inconsistently treated throughout . No recent seizure activity. Seizure precautions are in place. Early epidural for pain and anxiety control. We will monitor closely for thyroid status as well as depression and seizure activity following delivery. Pediatric team has been notified regarding maternal medical conditions and medications. status is currently reassuring by external monitoring. She is group B strep negative and Rh-. environmental services aide consult post delivery.
[2019-10-31] MEDS ORDERED: SODIUM CHLORIDE 0.9% 100 ML BAG ONE (11:31)
[2019-10-31] MEDS ORDERED: fentaNYL (PF) 50 MCG/ML 5 ML AMP ONE (11:31)
[2019-10-31] MEDS ORDERED: ROPIVACAINE 5MG/ML 20ML VIAL ONE (11:31)
[2019-10-31] MEDS ORDERED: LANOLIN CREAM 5 GM TUBE TOPICAL PRN (18:14)
[2019-10-31] MEDS ORDERED: diphenhydrAMINE 50 MG/ML 1 ML VIAL IVP PRN ×2 (18:14)
[2019-10-31] MEDS ORDERED: ACETAMINOPHEN TAB 325 MG TAB PO PRN (18:14)
[2019-10-31] MEDS ORDERED: ZOLPIDEM 5 MG TAB PO PRN (18:14)
[2019-10-31] MEDS ORDERED: diphenhydrAMINE 25 MG CAP PO PRN (18:14)
[2019-10-31] MEDS ORDERED: diphenhydrAMINE 50 MG CAP PO PRN (18:14)
[2019-10-31] MEDS ORDERED: HYDROCORTISONE 2.5% RECTAL CREAM 30 GM TUBE RECTAL PRN (18:14)
[2019-10-31] MEDS ORDERED: SIMETHICONE 80 MG CHEWABLE PO PRN (18:14)
[2019-10-31] MEDS ORDERED: BENZOCAINE/MENTHOL SPRAY 1 GM/SPRAY AEROSOL TOPICAL PRN (18:14)
--- NOTE | 2019-10-31 18:14 | P.PROBDLV ---
Vaginal Delivery Note - . Vaginal Delivery Note: Lungs: Female in the vertex left occiput anterior position with Apgars of 8 at 1 minute and 9 at 5 minutes weighing 7 lbs. 11 oz., 3490 g. Intact, three- vessel cord placenta. Second-degree perineal laceration with focal extension. Right labial laceration. EBL approximately 300 mL's. Delivery summary: This is a 19-year-old 2 para 0010 woman who is admitted at 40 weeks gestation for induction of labor. has been complicated by maternal seizure disorder, hypothyroidism, depression and asthma. Seizure precautions were implemented throughout her labor and she received an early epidural. At the time of rupture of membranes at 10:20 AM the cervix was 3 cm dilated and clear fluid was noted. Pitocin was increased per protocol and she reached complete cervical dilation by 1615. She commenced pushing with moderate maternal effort. She did have some variable appearing heart rate decelerations during the second stage. When she reached she was repositioned, prepped and draped in the modified Mauri position. With additional maternal effort the head delivered from the left occiput anterior position. A nuchal cord 1 was reduced. The anterior and posterior shoulders rapidly. The rest the infant was delivered onto the field and the nose and mouth were further bulb suctioned. There was terminal meconium noted. The was placed on the maternal abdomen where she was further bulb suctioned. The cord was clamped and cut and the fundus taken to the warmer. Cord blood was collected for maternal Rh- status. The vagina was inspected and a second-degree deep laceration was noted. This was infused with lidocaine in the usual fashion. 3-0 Vicryl suture was utilized to repair the second-degree laceration in the usual fashion. The right labial laceration was reapproximated with an additional 3-0 Vicryl suture. There was additional oozing from the apex of the os second-degree laceration in the sulcus. Additional deep 3-0 Vicryl suture was utilized to place additional stitch at the apex. Hemostasis was then noted. An intact, three-vessel cord placenta was then delivered after an approximately 10 minute third stage of labor. The uterus was massaged and was noted to be firm and the patient received Pitocin following the third stage of labor. The perineal repair was reinspected and was noted to be hemostatic. Rectal examination was performed and the rectal mucosa was intact with no palpable suture material. All counts were then on noted to be correct. EBL was approximately 300 mL's. During the repair the infant did have some grunting and was taken to the nursery for further evaluation and pulse oximetry. Need for further evaluation was explained to the patient and all questions were answered.
[2019-10-31] MEDS ORDERED: OXYTOCIN 20 UNITS/1000 ML NS 1,000 ML IV SCH (18:15)
[2019-10-31] MEDS: IBUPROFEN 600 MG TAB PO PRN (18:52)
[2019-10-31] MEDS ORDERED: levETIRAcetam 500 MG TAB PO SCH (20:00)
[2019-10-31] MEDS: levETIRAcetam 500 MG TAB PO SCH (21:08)
[2019-10-31] MEDS: SENNOSIDES-DOCUSATE SODIUM 1 EACH TAB PO SCH (21:09)
[2019-10-31] MEDS: THYROID, PORK 30 MG TAB PO SCH (21:12)
[2019-10-31] MEDS: ARIPiprazole 5 MG TAB PO SCH (21:13)
[2019-10-31] MEDS: SERTRALINE 50 MG TAB PO SCH (21:13)
[2019-11-01] MEDS: IBUPROFEN 600 MG TAB PO PRN ×4 (03:53→20:36)
[2019-11-01 04:50] LABS: Basophils % (A) 0 %; Eosinophils # (A) 0.1 k/uL (0-0.7); Eosinophils % (A) 0 %; HCT 32.9 % (34.0-46.0); HGB 10.9 gm/dL (11.4-16.0); Lymphocytes % (A) 16 %; MCH 31.3 pg (25.0-35.0); MCHC 33.2 g/dL (31.0-37.0); MCV 94.4 fL (80.0-100.0); Mean Platelet Volume 9.7; Monocytes # (A) 0.9 k/uL (0-1.0); Monocytes % (A) 7 %; Neutrophils # (A) 9.5 k/uL (1.3-7.7); Neutrophils % (A) 75 %; Platelet Count 172 k/uL (150-450); RBC 3.48 m/uL (3.80-5.40); RDW 13.6 % (11.5-15.5); WBC 12.7 k/uL (4.0-11.0)
--- NOTE | 2019-11-01 07:59 | P.PNOBGVD ---
Subjective - Subjective Principal diagnosis: day 1 Interval history: Feeling well, complaining of some moderate cramping. No seizure activity or aura since delivery. Patient reports: Reports appetite normal, Reports voiding normally, Reports pain well controlled, Reports ambulating normally [place]: doing well, bottle feeding Objective - Latest Vital Signs Latest vital signs: Vital Signs Temp Pulse Resp BP Pulse Ox 11/01/19 04:00 98.2 F 76 18 91/57 95 11/01/19 00:00 98.6 F 76 18 105/55 95 10/31/19 20:11 18 108/59 98 10/31/19 19:41 79 18 120/71 10/31/19 19:11 46 L 17 116/69 10/31/19 18:56 78 16 116/60 10/31/19 18:41 76 18 121/63 10/31/19 18:26 51 L 16 108/57 10/31/19 18:11 99.0 F 79 16 111/71 Intake and Output 10/31/19 11/01/19 11/01/19 22:59 06:59 14:59 Other: # Voids 1 1 - Exam Lungs: bilateral: normal Extremities: Present: normal. Absent: tenderness Abdomen: Present: normal appearance, soft. Absent: distention Uterus: Present: normal, firm. Absent: tenderness - Labs Labs: Abnormal Lab Results - Last 24 Hours (Table) 11/01/19 Range/Units 04:27 WBC 12.7 H (4.0-11.0) k/uL RBC 3.48 L (3.80-5.40) m/uL Hgb 10.9 L (11.4-16.0) gm/dL Hct 32.9 L (34.0-46.0) % Neutrophils # 9.5 H (1.3-7.7) k/uL Assessment and Plan (1) Term Current Visit: Yes Status: Acute Code(s): Z34.90 - ENCNTR FOR SUPRVSN OF NORMAL , UNSP, UNSP TRIMESTER SNOMED Code(s): 70658471 (2) Seizure disorder during Narrative/Plan: Patient reports active seizure activity prior to and in the early portions of the . She was started on Keppra to help control this is her seizures have been reported as stress induced. At this point I strongly r ecommend she restart her antiseizure medications as prescribed by her neurologist. We discussed implications for breast-feeding however my concern was reviewed with a maternal and safety issue should she have a seizure activity while caring for the baby. I encouraged to follow-up with her neurologist once discharge from the hospital to discuss medication management but I do not feel comfortable myself changing her antiseizure medications. Her plan at this time is to use the breast pump to stimulate breast milk production and dump this until which time she can meet with her neurologist to discuss medication changes. Both she and the patient's mother seemed to understand the discussion and agreed to restart her Keppra at this time. Current Visit: Yes Status: Acute Code(s): O99.350 - DISEASES OF THE NERVOUS SYS COMP , UNSP TRIMESTER; G40.909 - EPILEPSY, UNSP, NOT INTRACTABLE, WITHOUT STATUS EPILEPTICUS SNOMED Code(s): 873816281 (3) Hypothyroid Narrative/Plan: Check thyroid function studies and restart on thyroid medications today. Current Visit: Yes Status: Acute Code(s): E03.9 - HYPOTHYROIDISM, UNSPECIFIED SNOMED Code(s): 87554172 (4) Asthma Current Visit: Yes Status: Acute Code(s): J45.909 - UNSPECIFIED ASTHMA, UNCOMPLICATED SNOMED Code(s): 896715898 (5) Depression Narrative/Plan: She has scored high on screening tests for depression. We have been discussing this in the office and will resume her Zoloft today. Current Visit: Yes Status: Acute Code(s): F32.9 - MAJOR DEPRESSIVE DISORDER, SINGLE EPISODE, UNSPECIFIED SNOMED Code(s): 32813453 (6) Normal spontaneous vaginal delivery Current Visit: Yes Status: Acute Code(s): O80 - ENCOUNTER FOR FULL-TERM UNCOMPLICATED DELIVERY SNOMED Code(s): 37001733 (7) Nuchal cord Current Visit: Yes Status: Acute Code(s): O69.81X0 - LABOR AND DEL COMP BY CORD AROUND NECK, W/O COMPRSN, UNSP SNOMED Code(s): 951616667 (8) Perineal laceration with delivery, second degree Current Visit: Yes Status: Acute Code(s): O70.1 - SECOND DEGREE PERINEAL LACERATION DURING DELIVERY SNOMED Code(s): 7693771 (9) Obstetric labial laceration, delivered, current hospitalization Current Visit: Yes Status: Acute Code(s): O70.0 - FIRST DEGREE PERINEAL LACERATION DURING DELIVERY SNOMED Code(s): 012914068 Plan: day #1 status post normal spontaneous vaginal delivery. History of seizure disorder, hypothyroidism, depression and asthma as discussed above. Probable discharge home tomorrow. security services manager consult pending.
[2019-11-01] MEDS: levETIRAcetam 500 MG TAB PO SCH ×2 (08:37→20:35)
[2019-11-01] MEDS: PRENATAL VIT-IRON-FOLIC ACID 1 EACH CAP PO SCH (08:38)
[2019-11-01] MEDS: THYROID, PORK 30 MG TAB PO SCH ×2 (08:38→20:35)
[2019-11-01] MEDS: SENNOSIDES-DOCUSATE SODIUM 1 EACH TAB PO SCH ×2 (08:47→20:34)
[2019-11-01 08:50] VITALS: RESP 16
[2019-11-01] MEDS: ARIPiprazole 5 MG TAB PO SCH (20:34)
[2019-11-01] MEDS: SERTRALINE 50 MG TAB PO SCH (20:34)
--- NOTE | 2019-11-02 08:36 | P.DS ---
Providers Date of admission: 10/31/19 05:50 Expected date of discharge: 11/02/19 Attending physician: Fiorella Up Primary care physician: Bill Ashley - Discharge Diagnosis(es) (1) Term Current Visit: Yes Status: Acute (2) Seizure disorder during Current Visit: Yes Status: Acute (3) Hypothyroid Current Visit: Yes Status: Acute (4) Asthma Current Visit: Yes Status: Acute (5) Depression Current Visit: Yes Status: Acute (6) Normal spontaneous vaginal delivery Current Visit: Yes Status: Acute (7) Nuchal cord Current Visit: Yes Status: Acute (8) Perineal laceration with delivery, second degree Current Visit: Yes Status: Acute (9) Obstetric labial laceration, delivered, current hospitalization Current Visit: Yes Status: Acute Hospital Course: This is a 19-year-old 2 now para 1011 woman who was admitted for induction of labor at 40 weeks gestation. Her was complicated by a history of seizure disorders, hypothyroidism, depression and asthma. Please see the history and physical for details. Following admission she underwent a Pitocin induction of labor with artificial rupture of membranes. She received an epidural anesthetic. She went on to deliver a liveborn female infant over a second-degree perineal laceration with right labial laceration. Apgars were 8 at 1 minute and 9 at 5 minutes and weight was 7 lbs. 11 oz. The patient's course was unremarkable. Her antiseizure medications, thyroid medications and Zoloft restarted. She had no aura or seizure activity throughout her hospital stay. By day #1 she was ambulating and voiding without difficulty. Her lochia was moderate. Her vital signs were stable. labs including TSH were within normal limits. By day #2 she continued to do very well. Her lochia was decreasing. She is using the breast pump to stimulate milk production. Vital signs are stable. She was therefore discharged home with instructions for care and follow-up. Importance of consistent medication use for her seizure prophylaxis, thyroid and depression were reviewed in detail. She is planning to follow-up with her neurologist regarding the medication changes that may be better for breast- feeding. Signs and symptoms of worsening depression were reviewed. Patient Condition at Discharge: Good Plan - Discharge Summary New Discharge Prescriptions: No Action Gentle Iron 25mg 2 tab PO TID Sjl-Svlt-Tmkgc Acid [-U Capsule (formulary)] 1 cap PO DAILY Thyroid,Pork [General Forecaster Thyroid] 90 mg PO BID levETIRAcetam [Keppra] 500 mg PO DAILY Sertraline [Zoloft] 50 mg PO DAILY ARIPiprazole [Abilify] 5 mg PO DAILY Albuterol Sulfate (Bottle) [Ventolin] 0 mg INHALATION PRN PRN Reason: Dyspnea Discharge Medication List Gentle Iron 25mg 2 tab PO TID 05/30/18 [History] Yth-Nymn-Vwwob Acid [-U Capsule (formulary)] 1 cap PO DAILY 05/21/19 [History] Thyroid,Pork [General Forecaster Thyroid] 90 mg PO BID 05/21/19 [History] levETIRAcetam [Keppra] 500 mg PO DAILY 07/16/19 [History] Sertraline [Zoloft] 50 mg PO DAILY 09/27/19 [History] ARIPiprazole [Abilify] 5 mg PO DAILY 10/28/19 [History] Albuterol Sulfate (Bottle) [Ventolin] 0 mg INHALATION PRN 10/31/19 [History] Follow up Appointment(s)/Referral(s): Fiorella Up MD [STAFF PHYSICIAN] - 4 Weeks Activity/Diet/Wound Care/Special Instructions: Follow-up in the office in 6 weeks . Call with any concerning signs or symptoms including heavy vaginal bleeding, severe abdominal pain, fever greater than 101, swelling or redness of the lower extremities, foul vaginal discharge, or signs of depression. Nothing in the vagina for 6 weeks after delivery, specifically no intercourse. Discharge Disposition: HOME SELF-CARE
[2019-11-02 08:59] VITALS: BP 105/70; PULSE 74; TEMP 98.7
[2019-11-02] MEDS: SENNOSIDES-DOCUSATE SODIUM 1 EACH TAB PO SCH (09:02)
[2019-11-02] MEDS: levETIRAcetam 500 MG TAB PO SCH (09:03)
[2019-11-02] MEDS: THYROID, PORK 30 MG TAB PO SCH (09:04)
[2019-11-02] MEDS: PRENATAL VIT-IRON-FOLIC ACID 1 EACH CAP PO SCH (09:09)
== END 2019-11-02 10:15 | disposition home or self-care (01) | DRG 806 ==
LOC: 4FBP 10-31 05:50
PROVIDERS: ADMIT Obstetrics & Gynecology; ATTEND Obstetrics & Gynecology
PROC: 0KQM0ZZ Repair Perineum Muscle, Open Approach (ICD-10-PCS; principal; 2019-10-31)
PROC: 00HU33Z Insertion of Infusion Device into Spinal Canal, Percutaneous Approach (ICD-10-PCS; principal; 2019-10-31)
PROC: 10E0XZZ Delivery of Products of Conception, External Approach (ICD-10-PCS; principal; 2019-10-31)
PROC: 3E0R3BZ Introduction of Anesthetic Agent into Spinal Canal, Percutaneous Approach (ICD-10-PCS; principal; 2019-10-31)
DX: O69.81X0 Labor and delivery complicated by cord around neck, without compression, not applicable or unspecified (principal); G40.A19 Absence epileptic syndrome, intractable, without status epilepticus; Z37.0 Single live birth; O99.354 Diseases of the nervous system complicating childbirth; O99.344 Other mental disorders complicating childbirth; O77.0 Labor and delivery complicated by meconium in amniotic fluid; O70.1 Second degree perineal laceration during delivery; O76 Abnormality in fetal heart rate and rhythm complicating labor and delivery; O99.284 Endocrine, nutritional and metabolic diseases complicating childbirth; E03.9 Hypothyroidism, unspecified; F31.9 Bipolar disorder, unspecified; F41.9 Anxiety disorder, unspecified; F60.3 Borderline personality disorder; F90.9 Attention-deficit hyperactivity disorder, unspecified type; O99.52 Diseases of the respiratory system complicating childbirth; J45.909 Unspecified asthma, uncomplicated; K21.9 Gastro-esophageal reflux disease without esophagitis; O26.893 Other specified pregnancy related conditions, third trimester; O99.62 Diseases of the digestive system complicating childbirth; T50.996A Underdosing of other drugs, medicaments and biological substances, initial encounter; T42.6X6A Underdosing of other antiepileptic and sedative-hypnotic drugs, initial encounter; Z3A.40 40 weeks gestation of pregnancy; Z87.891 Personal history of nicotine dependence; Z79.899 Other long term (current) drug therapy; Z79.890 Hormone replacement therapy; Z88.0 Allergy status to penicillin; Z91.040 Latex allergy status; Z91.011 Allergy to milk products; Z91.128 Patient's intentional underdosing of medication regimen for other reason; Z67.11 Type A blood, Rh negative
CPT/HCPCS: 84443; 85025; 86850; 86900; 86901

== ENCOUNTER 2019-11-03 19:45 | Emergency (ER) | payer BC, OTHER ==
--- NOTE | 2019-11-03 20:08 | ED ---
Recheck HPI - General Chief Complaint: Recheck/Abnormal Lab/Rx Stated Complaint: Complication Time Seen by Provider: 11/03/19 20:06 Source: patient Mode of arrival: ambulatory Limitations: no limitations - History of Present Illness Initial Comments: Patient is a 19-year-old female presenting to the emergency department with a chief complaint of vaginal pain. Patient is day 3 vaginal delivery. Patient states she's had a vaginal tear, not episiotomy. States the vaginal tear was repaired by . States about 1.5 days ago she developed a burning sensation whenever she urinates. States she can feel the laceration site is irritated whenever she is urinating. States does not feel like dysuria from a urinary tract infection. Otherwise, her bleeding has gradually been improving along with the pain. She denies any night sweats fevers or chills. Denies any foul vaginal smell or discharge. - Related Data Home Medications Medication Instructions Recorded Confirmed Gentle Iron 25mg 2 tab PO TID 05/30/18 11/03/19 Yaw-Cbvw-Blfmv Acid 1 cap PO DAILY 05/21/19 11/03/19 [-U Capsule (formulary)] Thyroid,Pork [Child Specialist Thyroid] 90 mg PO BID 05/21/19 11/03/19 levETIRAcetam [Keppra] 500 mg PO BID 07/16/19 11/03/19 Sertraline [Zoloft] 50 mg PO HS 09/27/19 11/03/19 ARIPiprazole [Abilify] 2 mg PO HS 11/03/19 11/03/19 [place]-3 Fatty Acids/Fish Oil [Fish 1 cap PO DAILY 11/03/19 11/03/19 Oil 1,000 mg Softgel] Vitamin B Complex 1 cap PO DAILY 11/03/19 11/03/19 Allergies Allergy/AdvReac Type Severity Reaction Status Date / Time milk Allergy Severe Rash/Hives Verified 11/03/19 21:24 amoxicillin [Amoxicillin] Allergy Anaphylaxis Verified 11/03/19 21:24 latex Allergy Rash/Hives Verified 11/03/19 21:24 Milk Containing Products Allergy Rash/Hives Verified 11/03/19 21:24 [Dairy] Review of Systems ROS Statement: Those systems with pertinent positive or pertinent negative responses have been documented in the HPI. ROS Other: All systems not noted in ROS Statement are negative. 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 anemia. History of Any Multi-Drug Resistant Organisms: None Reported Past Surgical History: Ear Surgery Additional Past Surgical History / Comment(s): PE tubes, Past Anesthesia/Blood Transfusion Reactions: No Reported Reaction Past Psychological History: ADD/ADHD, Anxiety, Bipolar, Depression Smoking Status: Former smoker Past Alcohol Use History: None Reported Past Drug Use History: None Reported - Past Family History Mother Family Medical History: No Reported History General Exam Limitations: no limitations General appearance: alert, in no apparent distress Head exam: Present: atraumatic, normocephalic, normal inspection Eye exam: Present: normal appearance, PERRL, EOMI Pupils: Present: normal accommodation ENT exam: Present: normal exam, normal oropharynx, mucous membranes moist Neck exam: Present: normal inspection, full ROM. Absent: tenderness Respiratory exam: Present: normal lung sounds bilaterally. Absent: respiratory distress, wheezes, rales Cardiovascular Exam: Present: regular rate, normal rhythm, normal heart sounds GI/Abdominal exam: Present: soft. Absent: distended, tenderness, guarding, rebound Speculum exam: Present: vaginal bleeding (Scant vaginal bleeding), laceration (Laceration 6:00 with multiple sutures intact. Laceration repair appears to be intact.), other (No signs of a hematoma near the laceration site. No obvious obstructions of the urethra.) Extremities exam: Present: normal inspection, full ROM, normal capillary refill Back exam: Present: normal inspection, full ROM. Absent: tenderness, CVA tenderness (R), CVA tenderness (L), muscle spasm Neurological exam: Present: alert, oriented X3, normal gait Psychiatric exam: Present: normal affect, normal mood Skin exam: Present: warm, dry, intact, normal color Course Vital Signs 11/03/19 11/03/19 11/03/19 19:52 21:10 22:19 Temperature 98.0 F 97.5 F L 97.4 F L Pulse Rate 85 71 62 Respiratory 20 19 17 Rate Blood Pressure 121/80 115/82 111/86 O2 Sat by Pulse 98 97 98 Oximetry Medical Decision Making - Medical Decision Making Patient is a 19-year-old female presenting to emergency Department with chief complaint of vaginal pain. Patient is day 3 . On physical examination, patient has a repaired vaginal tear seems to be holding intact. Sutures are still intact and there is no bleeding from the laceration site. There is scant amount of vaginal bleeding coming from the cervix. UA is unremarkable. I called who suggested the patient can continue with the ice compress, Tylenol and Motrin and be discharged with follow-up in the office on Wednesday. Strict return parameters were thoroughly discussed with patient is understanding and agreeable. Case discussed with physician. - Lab Data Lab Results 11/03/19 Range/Units 21:04 Urine Color Light Yellow Urine Appearance Clear (Clear) Urine pH 7.0 (5.0-8.0) Ur Specific [place] 1.013 (1.001-1.035) Urine Protein Negative (Negative) Urine Glucose (UA) Negative (Negative) Urine Ketones Negative (Negative) Urine Blood Negative (Negative) Urine Nitrite Negative (Negative) Urine Bilirubin Negative (Negative) Urine Urobilinogen <2.0 (<2.0) mg/dL Ur Leukocyte Esterase Negative (Negative) Disposition Clinical Impression: Obstetric vaginal laceration Disposition: HOME SELF-CARE Condition: Stable Instructions (If sedation given, give patient instructions): Anterior Vaginal Repair (DC) Additional Instructions: Follow-up with . Apply ice compress an alternate between Tylenol and Motrin for pain control. Return to emergency department if symptoms worsen. Is patient prescribed a controlled substance at d/c from ED?: No Referrals: Bill Ashley DO [Primary Care Provider] - 1-2 days Time of Disposition: 21:36
[2019-11-03 21:17] LABS: Appearance,Urine Clear (Clear); Bilirubin,Urine Negative (Negative); Blood,Urine Negative (Negative); Color,Urine Light Yellow; Glucose,Urine (UA) Negative (Negative); Ketones,Urine Negative (Negative); Leukocyte Esterase,Urine Negative (Negative); Nitrite,Urine Negative (Negative); Protein,Urine Negative (Negative); Specific Gravity,Urine 1.013 (1.001-1.035); Urobilinogen,Urine <2.0 mg/dL (<2.0)
[2019-11-03 22:30] VITALS: BP 111/86; PULSE 62; RESP 17; TEMP 97.4
== END 2019-11-03 22:19 | disposition home or self-care (01) ==
LOC: EC 19:45
DX: O90.89 Other complications of the puerperium, not elsewhere classified (principal); S31.41XA Laceration without foreign body of vagina and vulva, initial encounter; D64.9 Anemia, unspecified; G40.909 Epilepsy, unspecified, not intractable, without status epilepticus; F31.9 Bipolar disorder, unspecified; E07.9 Disorder of thyroid, unspecified; F41.9 Anxiety disorder, unspecified; Z79.899 Other long term (current) drug therapy; Z79.890 Hormone replacement therapy; Z88.0 Allergy status to penicillin; Z91.040 Latex allergy status; Z91.011 Allergy to milk products; Z87.891 Personal history of nicotine dependence
CPT/HCPCS: 81003; 99283

== ENCOUNTER 2019-12-28 19:55 | Emergency (ER) | payer OTHER, BC ==
[2019-12-28 20:05] VITALS: RESP 16; TEMP 97.1
[2019-12-28] MEDS ORDERED: ACETAMINOPHEN TAB 500 MG TAB PO STA (20:21)
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
--- NOTE | 2019-12-28 21:00 | XR ---
EXAMINATION TYPE: XR wrist complete LT DATE OF EXAM: 12/28/2019 COMPARISON: None HISTORY: Pain 4 views. Carpal bones are intact. I see no fracture nor dislocation. Joint spaces are normal. Metacarpals are intact. IMPRESSION: Normal left wrist exam. No fracture.
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
[2019-12-28 22:09] VITALS: BP 115/80; PULSE 75
== END 2019-12-28 22:09 | disposition home or self-care (01) ==
LOC: EC 19:55
DX: S00.83XA Contusion of other part of head, initial encounter (principal); M25.532 Pain in left wrist; F41.9 Anxiety disorder, unspecified; F31.9 Bipolar disorder, unspecified; G40.909 Epilepsy, unspecified, not intractable, without status epilepticus; E07.9 Disorder of thyroid, unspecified; Z79.890 Hormone replacement therapy; Z79.899 Other long term (current) drug therapy; Z87.891 Personal history of nicotine dependence; Z88.0 Allergy status to penicillin; Z91.011 Allergy to milk products; Z91.040 Latex allergy status; V48.5XXA Car driver injured in noncollision transport accident in traffic accident, initial encounter; Y93.89 Activity, other specified; Y92.410 Unspecified street and highway as the place of occurrence of the external cause
CPT/HCPCS: 29125; 70450; 71046; 99284

== ENCOUNTER → 2020-01-29 | Outpatient (CLI) | payer BC, OTHER ==
--- NOTE | 2020-01-30 12:02 | US ---
EXAMINATION TYPE: US gallbladder DATE OF EXAM: 01/29/2020 COMPARISON: CT 2018, US 2016 CLINICAL HISTORY: R10.11 ABD PAIN. RUQ pain, nausea and diarrhea x 3 months, gets worse after eating. EXAM MEASUREMENTS: Liver Length: 16.0 cm Gallbladder Wall: 0.1 cm CBD: 0.3 cm Right Kidney: 9.3 x 3.8 x 4.4 cm Pancreas: visualized portions wnl, limited by overlying midline bowel gas Liver: wnl Gallbladder: wnl Evidence for sonographic Collier's sign: no CBD: wnl Right Kidney: wnl IMPRESSION: No significant abnormalities evident
== END | disposition home or self-care (01) ==
LOC: RADUSWWP 08:25
PROVIDERS: ATTEND Family Medicine
DX: R10.11 Right upper quadrant pain (principal)
CPT/HCPCS: 76705

== ENCOUNTER 2020-02-16 10:13 | Emergency (ER) | payer BC, OTHER ==
[2020-02-16 10:35] VITALS: RESP 18
[2020-02-16] MEDS ORDERED: SODIUM CHLORIDE 0.9% 500 ML 500 ML IV STA (11:03)
[2020-02-16 11:25] LABS: Basophils # (A) 0.1 k/uL (0-0.2); Basophils % (A) 1 %; Eosinophils # (A) 0.2 k/uL (0-0.7); Eosinophils % (A) 3 %; HGB 14.9 gm/dL (11.4-16.0); Lymphocytes # (A) 1.6 k/uL (1.0-4.8); Lymphocytes % (A) 26 %; MCH 30.4 pg (25.0-35.0); MCHC 34.6 g/dL (31.0-37.0); MCV 87.9 fL (80.0-100.0); Mean Platelet Volume 8.5; Monocytes # (A) 0.3 k/uL (0-1.0); Monocytes % (A) 5 %; Neutrophils % (A) 64 %; Platelet Count 235 k/uL (150-450); RBC 4.89 m/uL (3.80-5.40); RDW 12.1 % (11.5-15.5); WBC 6.2 k/uL (4.0-11.0)
[2020-02-16 11:36] LABS: ALT 15 U/L (4-34); AST 26 U/L (14-36); African American GFR (CKD) >90 (>60 ml/min/1.73 sqM); Albumin 4.7 g/dL (3.5-5.0); Alkaline Phosphatase 74 U/L (38-126); Amylase 57 U/L (30-110); Anion Gap 10 mmol/L; Blood Urea Nitrogen 13 mg/dL (7-17); Calcium 9.7 mg/dL (8.4-10.2); Carbon Dioxide 20 mmol/L (22-30); Chloride 109 mmol/L (98-107); Glucose 93 mg/dL (74-99); Lipase 61 U/L (23-300); Non-African American GFR(CKD) >90 (>60 ml/min/1.73 sqM); Potassium 4.2 mmol/L (3.5-5.1); Sodium 139 mmol/L (137-145); Total Bilirubin 0.5 mg/dL (0.2-1.3); Total Protein 7.7 g/dL (6.3-8.2)
[2020-02-16 11:44] LABS: Appearance,Urine Cloudy (Clear); Bacteria,Urine Rare /hpf; Bilirubin,Urine Negative (Negative); Blood,Urine Negative (Negative); Color,Urine Yellow; Glucose,Urine (UA) Negative (Negative); Ketones,Urine Negative (Negative); Leukocyte Esterase,Urine Large (Negative); Mucus,Urine Rare /hpf; Nitrite,Urine Negative (Negative); PH, Urine 6.5 (5.0-8.0); Protein,Urine Trace (Negative); Specific Gravity,Urine 1.026 (1.001-1.035); Squamous Epithelial Cell,Urine 32 /hpf (0-4); Urobilinogen,Urine <2.0 mg/dL (<2.0); WBC,Urine 41 /hpf (0-5)
--- NOTE | 2020-02-16 12:38 | ED ---
Abdominal Pain HPI - General Chief Complaint: Abdominal Pain Stated Complaint: possible gallbladder problems Time Seen by Provider: 02/16/20 10:39 Source: patient Mode of arrival: ambulatory Limitations: no limitations - History of Present Illness Initial Comments: 19-year-old female presented for upper quadrant pain loose stools nausea after eating. Patient states that she believes she has problems with her gallbladder she states she has had an outpatient ultrasound last week and is unsure of the results. Patient states that since the of her child she has had nausea right upper quadrant pain after eating she states she's had loose stools she denies any fevers chest pain shortness of breath or leg swelling. Denies vomiting blood or epigastric pain. pt denies additional complaints. pt concerned because symptoms persist and came to the ER. No new symptoms or worsening. - Related Data Home Medications Medication Instructions Recorded Confirmed No Known Home Medications 02/16/20 02/16/20 Allergies Allergy/AdvReac Type Severity Reaction Status Date / Time milk Allergy Severe Rash/Hives Verified 02/16/20 11:40 amoxicillin [Amoxicillin] Allergy Anaphylaxis Verified 02/16/20 11:40 latex Allergy Rash/Hives Verified 02/16/20 11:40 Milk Containing Products Allergy Rash/Hives Verified 02/16/20 11:40 [Dairy] Review of Systems ROS Statement: Those systems with pertinent positive or pertinent negative responses have been documented in the HPI. ROS Other: All systems not noted in ROS Statement are negative. 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 anemia. History of Any Multi-Drug Resistant Organisms: None Reported Past Surgical History: Ear Surgery Additional Past Surgical History / Comment(s): PE tubes, Past Anesthesia/Blood Transfusion Reactions: No Reported Reaction Past Psychological History: ADD/ADHD, Anxiety, Bipolar, Depression Smoking Status: Former smoker Past Alcohol Use History: Occasional Past Drug Use History: Marijuana - Past Family History Mother Family Medical History: No Reported History General Exam - General Exam Comments Initial Comments: General: The patient is awake and alert, in no distress, and does not appear acutely ill. Eye: Pupils are equal, round and reactive to light, extra-ocular movements are intact. No nystagmus. There is normal conjunctiva bilaterally. No signs of icterus. Cardiovascular: There is a regular rate and rhythm. No murmur, rub or gallop is appreciated. Respiratory: Lungs are clear to auscultation, respirations are non-labored, breath sounds are equal. No wheezes, stridor, rales, or rhonchi. Gastrointestinal: Soft, non-distended, RUQ pain to palpation-mild. no epigastric pain, abdomen without masses or organomegaly noted. There is no rebound or guarding present. Musculoskeletal: Normal ROM, no tenderness. Strength 5/5. Sensation intact. Radial pulses equal bilaterally 2+. Neurological: A&O x 3. CN II-XII intact, There are no obvious motor or sensory deficits. Coordination appears grossly intact. Speech is normal. Skin: Skin is warm and dry and no rashes or lesions are noted. Psychiatric: Cooperative, appropriate mood & affect, normal judgment. Limitations: no limitations Course Vital Signs 02/16/20 02/16/20 10:32 12:50 Temperature 98.7 F 98.3 F Pulse Rate 74 69 Respiratory 18 18 Rate Blood Pressure 110/66 121/70 O2 Sat by Pulse 99 97 Oximetry Medical Decision Making - Medical Decision Making Lab stable no elevation of AST ALT are bilirubin. He is afebrile, LAST WEEK WHICH WAS REVIEWED REVEALED NO GALLSTONES OR SIGNS OF ACUTE CHOLECYSTITIS NO ACUTE INCREASE IN PAIN PATIENT APPEARS WELL AND NONTOXIC distress NO VOMITING IN THE EMERGENCY DEPARTMENT. C. DIFFICILE TESTING NEGATIVE. AT THIS TIME FEEL PATIENT IS STABLE FOR DISCHARGE WITH OUTPATIENT GASTRIC NEUROLOGY FOLLOW-UP FOR POSSIBLE ERCP I DID RECORD PATIENT ALSO CONSULT A GENERAL SURGEON THIS DOES appear consistent with biliary colic. Patient agreeable to this care plan discharge at this time - Lab Data Result diagrams: 02/16/20 11:05 02/16/20 11:05 Lab Results 02/16/20 02/16/20 02/16/20 Range/Units 11:04 11:05 11:05 WBC 6.2 (4.0-11.0) k/uL RBC 4.89 (3.80-5.40) m/uL Hgb 14.9 (11.4-16.0) gm/dL Hct 43.0 (34.0-46.0) % MCV 87.9 (80.0-100.0) fL MCH 30.4 (25.0-35.0) pg MCHC 34.6 (31.0-37.0) g/dL RDW 12.1 (11.5-15.5) % Plt Count 235 (150-450) k/uL MPV 8.5 Neutrophils % 64 % Lymphocytes % 26 % Monocytes % 5 % Eosinophils % 3 % Basophils % 1 % Neutrophils # 4.0 (1.3-7.7) k/uL Lymphocytes # 1.6 (1.0-4.8) k/uL Monocytes # 0.3 (0-1.0) k/uL Eosinophils # 0.2 (0-0.7) k/uL Basophils # 0.1 (0-0.2) k/uL Sodium (137-145) mmol/L Potassium (3.5-5.1) mmol/L Chloride (98-107) mmol/L Carbon Dioxide (22-30) mmol/L Anion Gap mmol/L BUN (7-17) mg/dL Creatinine (0.52-1.04) mg/dL Est GFR (CKD-EPI)AfAm (>60 ml/min/1.73 sqM) Est GFR (CKD-EPI)NonAf (>60 ml/min/1.73 sqM) Glucose (74-99) mg/dL Calcium (8.4-10.2) mg/dL Total Bilirubin (0.2-1.3) mg/dL AST (14-36) U/L ALT (4-34) U/L Alkaline Phosphatase (38-126) U/L Total Protein (6.3-8.2) g/dL Albumin (3.5-5.0) g/dL Amylase (30-110) U/L Lipase (23-300) U/L Urine Color Yellow Urine Appearance Cloudy H (Clear) Urine pH 6.5 (5.0-8.0) Ur Specific [place] 1.026 (1.001-1.035) Urine Protein Trace H (Negative) Urine Glucose (UA) Negative (Negative) Urine Ketones Negative (Negative) Urine Blood Negative (Negative) Urine Nitrite Negative (Negative) Urine Bilirubin Negative (Negative) Urine Urobilinogen <2.0 (<2.0) mg/dL Ur Leukocyte Esterase Large H (Negative) Urine WBC 41 H (0-5) /hpf Ur Squamous Epith Cells 32 H (0-4) /hpf Urine Bacteria Rare H (None) /hpf Urine Mucus Rare H (None) /hpf Urine HCG, Qual (Not Detectd) C. difficile (EIA) Intrp Negative (Negative) 02/16/20 02/16/20 Range/Units 11:05 11:05 WBC (4.0-11.0) k/uL RBC (3.80-5.40) m/uL Hgb (11.4-16.0) gm/dL Hct (34.0-46.0) % MCV (80.0-100.0) fL MCH (25.0-35.0) pg MCHC (31.0-37.0) g/dL RDW (11.5-15.5) % Plt Count (150-450) k/uL MPV Neutrophils % % Lymphocytes % % Monocytes % % Eosinophils % % Basophils % % Neutrophils # (1.3-7.7) k/uL Lymphocytes # (1.0-4.8) k/uL Monocytes # (0-1.0) k/uL Eosinophils # (0-0.7) k/uL Basophils # (0-0.2) k/uL Sodium 139 (137-145) mmol/L Potassium 4.2 (3.5-5.1) mmol/L Chloride 109 H (98-107) mmol/L Carbon Dioxide 20 L (22-30) mmol/L Anion Gap 10 mmol/L BUN 13 (7-17) mg/dL Creatinine 0.83 (0.52-1.04) mg/dL Est GFR (CKD-EPI)AfAm >90 (>60 ml/min/1.73 sqM) Est GFR (CKD-EPI)NonAf >90 (>60 ml/min/1.73 sqM) Glucose 93 (74-99) mg/dL Calcium 9.7 (8.4-10.2) mg/dL Total Bilirubin 0.5 (0.2-1.3) mg/dL AST 26 (14-36) U/L ALT 15 (4-34) U/L Alkaline Phosphatase 74 (38-126) U/L Total Protein 7.7 (6.3-8.2) g/dL Albumin 4.7 (3.5-5.0) g/dL Amylase 57 (30-110) U/L Lipase 61 (23-300) U/L Urine Color Urine Appearance (Clear) Urine pH (5.0-8.0) Ur Specific [place] (1.001-1.035) Urine Protein (Negative) Urine Glucose (UA) (Negative) Urine Ketones (Negative) Urine Blood (Negative) Urine Nitrite (Negative) Urine Bilirubin (Negative) Urine Urobilinogen (<2.0) mg/dL Ur Leukocyte Esterase (Negative) Urine WBC (0-5) /hpf Ur Squamous Epith Cells (0-4) /hpf Urine Bacteria (None) /hpf Urine Mucus (None) /hpf Urine HCG, Qual Not Detected (Not Detectd) C. difficile (EIA) Intrp (Negative) Disposition Clinical Impression: RUQ pain, Loose stools, Nausea Disposition: HOME SELF-CARE Condition: Good Instructions (If sedation given, give patient instructions): Biliary Colic (ED) Additional Instructions: Please use medication as discussed. Please follow-up with family doctor, and gastroenterology. Please return to emergency room if the symptoms increase or worsen or for any other concerns. Is patient prescribed a controlled substance at d/c from ED?: No Referrals: Bill Ashley DO [Primary Care Provider] - 1-2 days Samaria Mooney MD [STAFF PHYSICIAN] - 1-2 days Time of Disposition: 12:38
[2020-02-16 13:20] VITALS: BP 121/70; PULSE 69; TEMP 98.3
== END 2020-02-16 12:50 | disposition home or self-care (01) ==
LOC: EC 10:13
DX: R10.11 Right upper quadrant pain (principal); R11.0 Nausea; R19.7 Diarrhea, unspecified; Z88.0 Allergy status to penicillin; Z91.011 Allergy to milk products; Z91.040 Latex allergy status; Z87.891 Personal history of nicotine dependence
CPT/HCPCS: 36415; 80053; 81001; 81025; 82150; 83690; 85025; 87086; 87324; 96360; 99284

== ENCOUNTER → 2020-03-06 | Outpatient (CLI) | payer BC, OTHER ==
--- NOTE | 2020-03-06 16:08 | CT ---
EXAMINATION TYPE: CT abdomen pelvis wo con DATE OF EXAM: 03/06/2020 HISTORY: abdominal pain, nausea, vomiting, diarrhea CT DLP: 389.5 mGycm. Automated Exposure Control for Dose Reduction was Utilized. TECHNIQUE: CT scan of the abdomen and pelvis is performed with oral but without IV contrast. COMPARISON: CT abdomen and pelvis May 30, 2018 FINDINGS: Within the limitations of a non-contrast study, the following observations are made. LUNG BASES: No significant abnormality is appreciated. LIVER/GB: No significant abnormality is appreciated. PANCREAS: No significant abnormality is seen. SPLEEN: No significant abnormality is seen. ADRENALS: No significant abnormality is seen. KIDNEYS: There is punctate 1 to 2 mm nonobstructing calculus left kidney lower pole level coronal vasquez ge 47. No right-sided renal calculus. Mild right-sided pyelocaliectasis without obstructing ureteric calculus clearly seen. No hydroureter. Findings similar to prior study. Possible UPJ stricture or michael nosis. BOWEL: Oral contrast reaches level of sigmoid colon. No suspicious small or large bowel dilatation. M ild to moderate wall thickening in the sigmoid colon. No surrounding inflammatory change. Contrast fi lls the appendix right lower quadrant which appears unremarkable. GENITAL ORGANS: Anteverted uterus. LYMPH NODES: No greater than 1cm abdominal or pelvic lymph nodes are appreciated. OSSEOUS STRUCTURES: No significant abnormality is seen. OTHER: No significant additional abnormality is seen. IMPRESSION: Possible mild uncomplicated acute sigmoid colitis. Differential includes infectious and/o r inflammatory etiologies. No bowel obstruction. Correlate clinically.
== END | disposition home or self-care (01) ==
LOC: RADCTMAIN 13:59
PROVIDERS: ATTEND Family Medicine
DX: R10.84 Generalized abdominal pain (principal); Z88.0 Allergy status to penicillin
CPT/HCPCS: 74176

== ENCOUNTER 2020-05-05 01:04 | Emergency (ER) | payer BC, OTHER ==
[2020-05-05 01:11] VITALS: RESP 18; TEMP 98.4
[2020-05-05] MEDS ORDERED: ONDANSETRON 4 MG/2 ML VIAL IVP STA (01:30)
[2020-05-05] MEDS ORDERED: SODIUM CHLORIDE 0.9% 1,000 ML IV STA (01:30)
[2020-05-05] MEDS ORDERED: LORazepam 2 MG/ML INJ IV STA (01:37)
--- NOTE | 2020-05-05 01:39 | ED ---
General Adult HPI - General Chief complaint: Dizziness Stated complaint: Weakness, poss seizure Source: patient Mode of arrival: wheelchair Limitations: no limitations - History of Present Illness Initial comments: 19-year-old female with a past medical history of asthma, seizure disorder, pseudoseizures, anemia presents to the emergency department for a chief complaint of not feeling well. Patient reports that she feels like she was having an aura for a seizure. States that her head started to feel heavy which is in the past. Patient states her last seizure was about one year ago. Patient states she is not on any seizure medication at this time. Patient states she is to be on antidepressant as she was told anxiety triggers or seizures. Patient states she is nauseous right now but otherwise is feeling her normal self.Patient has no other complaints at this time including shortness of breath, chest pain, abdominal pain, headache, or visual changes. - Related Data Home Medications Medication Instructions Recorded Confirmed No Known Home Medications 02/16/20 02/16/20 Allergies Allergy/AdvReac Type Severity Reaction Status Date / Time milk Allergy Severe Rash/Hives Verified 05/05/20 01:11 amoxicillin [Amoxicillin] Allergy Anaphylaxis Verified 05/05/20 01:11 latex Allergy Rash/Hives Verified 05/05/20 01:11 Milk Containing Products Allergy Rash/Hives Verified 05/05/20 01:11 [Dairy] Review of Systems ROS Statement: Those systems with pertinent positive or pertinent negative responses have been documented in the HPI. ROS Other: All systems not noted in ROS Statement are negative. 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 anemia. History of Any Multi-Drug Resistant Organisms: None Reported Past Surgical History: Ear Surgery Additional Past Surgical History / Comment(s): PE tubes, Past Anesthesia/Blood Transfusion Reactions: No Reported Reaction Past Psychological History: ADD/ADHD, Anxiety, Bipolar, Depression Smoking Status: Former smoker Past Alcohol Use History: Occasional Past Drug Use History: Marijuana - Past Family History Mother Family Medical History: No Reported History General Exam Limitations: no limitations General appearance: alert, in no apparent distress Head exam: Present: atraumatic, normocephalic Eye exam: Present: normal appearance, PERRL, EOMI. Absent: scleral icterus, conjunctival injection, periorbital swelling ENT exam: Present: normal exam, mucous membranes moist Neck exam: Present: normal inspection, full ROM. Absent: tenderness, meningismus, lymphadenopathy Respiratory exam: Present: normal lung sounds bilaterally. Absent: respiratory distress, wheezes, rales, rhonchi, stridor Cardiovascular Exam: Present: regular rate, normal rhythm, normal heart sounds. Absent: systolic murmur, diastolic murmur, rubs, gallop, clicks GI/Abdominal exam: Present: soft, normal bowel sounds. Absent: distended, tenderness, guarding, rebound, rigid Neurological exam: Present: alert, oriented X3, normal gait Course Vital Signs 05/05/20 01:06 Temperature 98.4 F Pulse Rate 75 Respiratory 18 Rate Blood Pressure 120/85 O2 Sat by Pulse 99 Oximetry Medical Decision Making - Medical Decision Making Vitals are stable. Patient well-appearing. CBC CMP unremarkable. Urinalysis negative. Patient was given fluids and Zofran. He is also given a small dose of Ativan. On reevaluation patient had significant improvement in symptoms. States she no longer feels like she is going to have a seizure. She has control with discharge home. She'll return here for any worsening symptoms. - Lab Data Result diagrams: 05/05/20 01:36 05/05/20 01:36 Lab Results 05/05/20 05/05/20 05/05/20 Range/Units 01:36 01:36 01:36 WBC 5.7 (4.0-11.0) k/uL RBC 4.71 (3.80-5.40) m/uL Hgb 14.6 (11.4-16.0) gm/dL Hct 41.9 (34.0-46.0) % MCV 88.9 (80.0-100.0) fL MCH 31.0 (25.0-35.0) pg MCHC 34.8 (31.0-37.0) g/dL RDW 13.6 (11.5-15.5) % Plt Count 202 (150-450) k/uL MPV 9.1 Neutrophils % 57 % Lymphocytes % 32 % Monocytes % 7 % Eosinophils % 2 % Basophils % 1 % Neutrophils # 3.2 (1.3-7.7) k/uL Lymphocytes # 1.8 (1.0-4.8) k/uL Monocytes # 0.4 (0-1.0) k/uL Eosinophils # 0.1 (0-0.7) k/uL Basophils # 0.1 (0-0.2) k/uL Sodium (137-145) mmol/L Potassium (3.5-5.1) mmol/L Chloride (98-107) mmol/L Carbon Dioxide (22-30) mmol/L Anion Gap mmol/L BUN (7-17) mg/dL Creatinine (0.52-1.04) mg/dL Est GFR (CKD-EPI)AfAm (>60 ml/min/1.73 sqM) Est GFR (CKD-EPI)NonAf (>60 ml/min/1.73 sqM) Glucose (74-99) mg/dL Calcium (8.4-10.2) mg/dL Total Bilirubin (0.2-1.3) mg/dL AST (14-36) U/L ALT (4-34) U/L Alkaline Phosphatase (38-126) U/L Total Protein (6.3-8.2) g/dL Albumin (3.5-5.0) g/dL Amylase (30-110) U/L Lipase (23-300) U/L Urine Color Yellow Urine Appearance Clear (Clear) Urine pH 6.5 (5.0-8.0) Ur Specific [place] 1.014 (1.001-1.035) Urine Protein Negative (Negative) Urine Glucose (UA) Negative (Negative) Urine Ketones Negative (Negative) Urine Blood Small H (Negative) Urine Nitrite Negative (Negative) Urine Bilirubin Negative (Negative) Urine Urobilinogen <2.0 (<2.0) mg/dL Ur Leukocyte Esterase Negative (Negative) Urine RBC <1 (0-5) /hpf Urine WBC 1 (0-5) /hpf Ur Squamous Epith Cells <1 (0-4) /hpf Amorphous Sediment Occasional H (None) /hpf Urine Mucus Rare H (None) /hpf Urine HCG, Qual Not Detected (Not Detectd) 05/05/20 Range/Units 01:36 WBC (4.0-11.0) k/uL RBC (3.80-5.40) m/uL Hgb (11.4-16.0) gm/dL Hct (34.0-46.0) % MCV (80.0-100.0) fL MCH (25.0-35.0) pg MCHC (31.0-37.0) g/dL RDW (11.5-15.5) % Plt Count (150-450) k/uL MPV Neutrophils % % Lymphocytes % % Monocytes % % Eosinophils % % Basophils % % Neutrophils # (1.3-7.7) k/uL Lymphocytes # (1.0-4.8) k/uL Monocytes # (0-1.0) k/uL Eosinophils # (0-0.7) k/uL Basophils # (0-0.2) k/uL Sodium 142 (137-145) mmol/L Potassium 3.5 (3.5-5.1) mmol/L Chloride 108 H (98-107) mmol/L Carbon Dioxide 19 L (22-30) mmol/L Anion Gap 15 mmol/L BUN 9 (7-17) mg/dL Creatinine 0.84 (0.52-1.04) mg/dL Est GFR (CKD-EPI)AfAm >90 (>60 ml/min/1.73 sqM) Est GFR (CKD-EPI)NonAf >90 (>60 ml/min/1.73 sqM) Glucose 106 H (74-99) mg/dL Calcium 10.6 H (8.4-10.2) mg/dL Total Bilirubin 0.4 (0.2-1.3) mg/dL AST 22 (14-36) U/L ALT 14 (4-34) U/L Alkaline Phosphatase 65 (38-126) U/L Total Protein 8.1 (6.3-8.2) g/dL Albumin 5.2 H (3.5-5.0) g/dL Amylase 57 (30-110) U/L Lipase 56 (23-300) U/L Urine Color Urine Appearance (Clear) Urine pH (5.0-8.0) Ur Specific [place] (1.001-1.035) Urine Protein (Negative) Urine Glucose (UA) (Negative) Urine Ketones (Negative) Urine Blood (Negative) Urine Nitrite (Negative) Urine Bilirubin (Negative) Urine Urobilinogen (<2.0) mg/dL Ur Leukocyte Esterase (Negative) Urine RBC (0-5) /hpf Urine WBC (0-5) /hpf Ur Squamous Epith Cells (0-4) /hpf Amorphous Sediment (None) /hpf Urine Mucus (None) /hpf Urine HCG, Qual (Not Detectd) Disposition Clinical Impression: Malaise, Fatigue Disposition: HOME SELF-CARE Condition: Good Instructions (If sedation given, give patient instructions): Weakness (ED) Additional Instructions: Please drink plenty of fluids. Follow-up with your doctor in one to 2 days. Return to the emergency room for any worsening symptoms. Is patient prescribed a controlled substance at d/c from ED?: No Referrals: Bill Ashley DO [Primary Care Provider] - 1-2 days Time of Disposition: 02:27
[2020-05-05 01:43] LABS: Basophils # (A) 0.1 k/uL (0-0.2); Basophils % (A) 1 %; Eosinophils # (A) 0.1 k/uL (0-0.7); Eosinophils % (A) 2 %; HCT 41.9 % (34.0-46.0); HGB 14.6 gm/dL (11.4-16.0); Lymphocytes # (A) 1.8 k/uL (1.0-4.8); Lymphocytes % (A) 32 %; MCHC 34.8 g/dL (31.0-37.0); MCV 88.9 fL (80.0-100.0); Mean Platelet Volume 9.1; Monocytes # (A) 0.4 k/uL (0-1.0); Monocytes % (A) 7 %; Neutrophils # (A) 3.2 k/uL (1.3-7.7); Neutrophils % (A) 57 %; Platelet Count 202 k/uL (150-450); RBC 4.71 m/uL (3.80-5.40); RDW 13.6 % (11.5-15.5); WBC 5.7 k/uL (4.0-11.0)
[2020-05-05 01:49] LABS: Amorphous Sediment,Urine Occasional /hpf; Appearance,Urine Clear (Clear); Bilirubin,Urine Negative (Negative); Blood,Urine Small (Negative); Color,Urine Yellow; Glucose,Urine (UA) Negative (Negative); Ketones,Urine Negative (Negative); Leukocyte Esterase,Urine Negative (Negative); Mucus,Urine Rare /hpf; Nitrite,Urine Negative (Negative); PH, Urine 6.5 (5.0-8.0); Protein,Urine Negative (Negative); RBC,Urine <1 /hpf (0-5); Specific Gravity,Urine 1.014 (1.001-1.035); Squamous Epithelial Cell,Urine <1 /hpf (0-4); Urobilinogen,Urine <2.0 mg/dL (<2.0); WBC,Urine 1 /hpf (0-5)
[2020-05-05 02:06] LABS: ALT 14 U/L (4-34); AST 22 U/L (14-36); African American GFR (CKD) >90 (>60 ml/min/1.73 sqM); Albumin 5.2 g/dL (3.5-5.0); Alkaline Phosphatase 65 U/L (38-126); Amylase 57 U/L (30-110); Anion Gap 15 mmol/L; Blood Urea Nitrogen 9 mg/dL (7-17); Calcium 10.6 mg/dL (8.4-10.2); Carbon Dioxide 19 mmol/L (22-30); Chloride 108 mmol/L (98-107); Glucose 106 mg/dL (74-99); Lipase 56 U/L (23-300); Non-African American GFR(CKD) >90 (>60 ml/min/1.73 sqM); Potassium 3.5 mmol/L (3.5-5.1); Sodium 142 mmol/L (137-145); Total Bilirubin 0.4 mg/dL (0.2-1.3); Total Protein 8.1 g/dL (6.3-8.2)
[2020-05-05 03:06] VITALS: BP 108/66; PULSE 68
== END 2020-05-05 02:51 | disposition home or self-care (01) ==
LOC: EC 01:04
DX: R53.83 Other fatigue (principal); R53.81 Other malaise; Z87.891 Personal history of nicotine dependence; Z91.011 Allergy to milk products; Z88.0 Allergy status to penicillin; Z91.040 Latex allergy status
CPT/HCPCS: 36415; 80053; 82150; 83690; 85025; 81001; 81025; 96374; 96375; 96361; 99284; J2060; J2405

== ENCOUNTER 2020-07-19 18:27 | Emergency (ER) | payer BC, OTHER ==
[2020-07-19 18:57] VITALS: TEMP 98.5
--- NOTE | 2020-07-19 19:52 | ED ---
General Adult HPI - General Chief complaint: Vaginal Bleeding Stated complaint: Vaginal Bleeding Time Seen by Provider: 07/19/20 18:59 Source: patient Mode of arrival: ambulatory Limitations: no limitations - History of Present Illness Initial comments: 20-year-old female patient presents to the emergency department today for evaluation of vaginal bleeding for the last 3 months. Patient states that she get the Depo-Provera injection for the first time 3 months ago. States she immediately had onset of bleeding and has been persistent since. 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 Patient is currently having heavy bleeding changing her pad one time per hour. Does report passage of large blood clots. Denies any dizziness or weakness but is concerning her hemoglobin may be low. Denies any pain to the abdomen or back. She has had one previous with successful delivery. Patient denies any recent rash, fever, chi lls, cough, shortness of breath, chest pain, nausea, vomiting, diarrhea, constipation, numbness, tingling, dizziness, weakness, hematuria, dysuria, urinary urgency, urinary frequency, headache, visual changes, or any other complaints. - Related Data Home Medications Medication Instructions Recorded Confirmed Albuterol Inhaler [Ventolin Hfa 1 puff INHALATION RT-Q4H PRN 07/19/20 07/19/20 Inhaler] Fluticasone Nasal [place] [Flonase 1 spr EA NOSTRIL DAILY 07/19/20 07/19/20 Nasal [place]] Levothyroxine Sodium [Synthroid] 25 mcg PO DAILY 07/19/20 07/19/20 Medroxyprogesterone Acetate 150 mg IM Q90D 07/19/20 07/19/20 [Depo-Provera] busPIRone HCl [Buspar] 5 mg PO BID 07/19/20 07/19/20 Allergies Allergy/AdvReac Type Severity Reaction Status Date / Time milk Allergy Severe Rash/Hives Verified 07/19/20 19:16 amoxicillin [Amoxicillin] Allergy Anaphylaxis Verified 07/19/20 19:16 latex Allergy Rash/Hives Verified 07/19/20 19:16 Milk Containing Products Allergy Rash/Hives Verified 07/19/20 19:16 [Dairy] Review of Systems ROS Statement: Those systems with pertinent positive or pertinent negative responses have been documented in the HPI. ROS Other: All systems not noted in ROS Statement are negative. 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 anemia. borderline personality disorder, agoraphobia, PPD History of Any Multi-Drug Resistant Organisms: None Reported Past Surgical History: Ear Surgery Additional Past Surgical History / Comment(s): PE tubes, Past Anesthesia/Blood Transfusion Reactions: No Reported Reaction Past Psychological History: ADD/ADHD, Anxiety, Bipolar, Depression, PTSD Smoking Status: Former smoker Past Alcohol Use History: Occasional Past Drug Use History: Marijuana - Past Family History Mother Family Medical History: No Reported History General Exam Limitations: no limitations General appearance: alert, in no apparent distress, other (This is a well- developed, well-nourished adult female patient in no acute distress. Vital signs upon presentation temperature 98.5F, pulse 63, respirations 16, blood pressure 115/73, pulse ox 99% on room air.) Eye exam: Present: normal appearance, PERRL, EOMI. Absent: scleral icterus, conjunctival injection, periorbital swelling ENT exam: Present: normal exam, normal oropharynx, mucous membranes moist Respiratory exam: Present: normal lung sounds bilaterally. Absent: respiratory distress, wheezes, rales, rhonchi, stridor Cardiovascular Exam: Present: regular rate, normal rhythm, normal heart sounds. Absent: systolic murmur, diastolic murmur, rubs, gallop, clicks GI/Abdominal exam: Present: soft, normal bowel sounds. Absent: distended, tenderness, guarding, rebound, rigid External exam: Present: normal external exam Speculum exam: Present: vaginal bleeding (dark red, small blood clots in vaginal canal. Cervix closed. ) By manual exam: Present: normal by manual exam Neurological exam: Present: alert, oriented X3, CN II-XII intact Psychiatric exam: Present: normal affect, normal mood Skin exam: Present: warm, dry, intact, normal color. Absent: rash Course Vital Signs 07/19/20 07/19/20 18:53 21:43 Temperature 98.5 F Pulse Rate 63 68 Respiratory 16 18 Rate Blood Pressure 115/73 118/74 O2 Sat by Pulse 99 98 Oximetry Medical Decision Making - Medical Decision Making 20-year-old female patient presents for evaluation of vaginal bleeding 3 months. Started when she received Depo-Provera injection. Physical examination revealed soft nontender abdomen. Pelvic exam did reveal mild dark red vaginal bleeding. Vital signs within normal ranges. Labs reviewed and are unremarkable. Ultrasound was obtained and was negative. She is not . Discuss findings and results with her. 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 Return parameters were discussed in detail. She verbalizes understanding and agrees with this plan. My attending is Dr. Theodore. - Lab Data Result diagrams: 07/19/20 20:07 07/19/20 20:07 Lab Results 07/19/20 07/19/20 07/19/20 Range/Units 20:07 20:07 20:07 WBC 5.7 (3.8-10.6) k/uL RBC 4.45 (3.80-5.40) m/uL Hgb 13.7 (11.4-16.0) gm/dL Hct 40.6 (34.0-46.0) % MCV 91.3 (80.0-100.0) fL MCH 30.8 (25.0-35.0) pg MCHC 33.7 (31.0-37.0) g/dL RDW 12.4 (11.5-15.5) % Plt Count 161 (150-450) k/uL MPV 10.2 Neutrophils % 63 % Lymphocytes % 26 % Monocytes % 7 % Eosinophils % 1 % Basophils % 1 % Neutrophils # 3.6 (1.3-7.7) k/uL Lymphocytes # 1.5 (1.0-4.8) k/uL Monocytes # 0.4 (0-1.0) k/uL Eosinophils # 0.1 (0-0.7) k/uL Basophils # 0.1 (0-0.2) k/uL PT 11.6 (9.0-12.0) sec INR 1.1 (<1.2) APTT 24.8 (22.0-30.0) sec Sodium (137-145) mmol/L Potassium (3.5-5.1) mmol/L Chloride (98-107) mmol/L Carbon Dioxide (22-30) mmol/L Anion Gap mmol/L BUN (7-17) mg/dL Creatinine (0.52-1.04) mg/dL Est GFR (CKD-EPI)AfAm (>60 ml/min/1.73 sqM) Est GFR (CKD-EPI)NonAf (>60 ml/min/1.73 sqM) Glucose (74-99) mg/dL Calcium (8.4-10.2) mg/dL Total Bilirubin (0.2-1.3) mg/dL AST (14-36) U/L ALT (4-34) U/L Alkaline Phosphatase (38-126) U/L Total Protein (6.3-8.2) g/dL Albumin (3.5-5.0) g/dL Urine Color Light Yellow Urine Appearance Clear (Clear) Urine pH 6.5 (5.0-8.0) Ur Specific [place] 1.005 (1.001-1.035) Urine Protein Negative (Negative) Urine Glucose (UA) Negative (Negative) Urine Ketones Negative (Negative) Urine Blood Large H (Negative) Urine Nitrite Negative (Negative) Urine Bilirubin Negative (Negative) Urine Urobilinogen <2.0 (<2.0) mg/dL Ur Leukocyte Esterase Negative (Negative) Urine RBC 2 (0-5) /hpf Urine WBC <1 (0-5) /hpf Ur Squamous Epith Cells <1 (0-4) /hpf Urine Bacteria Rare H (None) /hpf Hyaline Casts 1 (0-2) /lpf Urine HCG, Qual (Not Detectd) 07/19/20 07/19/20 Range/Units 20:07 20:07 WBC (3.8-10.6) k/uL RBC (3.80-5.40) m/uL Hgb (11.4-16.0) gm/dL Hct (34.0-46.0) % MCV (80.0-100.0) fL MCH (25.0-35.0) pg MCHC (31.0-37.0) g/dL RDW (11.5-15.5) % Plt Count (150-450) k/uL MPV Neutrophils % % Lymphocytes % % Monocytes % % Eosinophils % % Basophils % % Neutrophils # (1.3-7.7) k/uL Lymphocytes # (1.0-4.8) k/uL Monocytes # (0-1.0) k/uL Eosinophils # (0-0.7) k/uL Basophils # (0-0.2) k/uL PT (9.0-12.0) sec INR (<1.2) APTT (22.0-30.0) sec Sodium 144 (137-145) mmol/L Potassium 3.8 (3.5-5.1) mmol/L Chloride 110 H (98-107) mmol/L Carbon Dioxide 21 L (22-30) mmol/L Anion Gap 13 mmol/L BUN 10 (7-17) mg/dL Creatinine 0.82 (0.52-1.04) mg/dL Est GFR (CKD-EPI)AfAm >90 (>60 ml/min/1.73 sqM) Est GFR (CKD-EPI)NonAf >90 (>60 ml/min/1.73 sqM) Glucose 81 (74-99) mg/dL Calcium 9.9 (8.4-10.2) mg/dL Total Bilirubin 0.4 (0.2-1.3) mg/dL AST 19 (14-36) U/L ALT 14 (4-34) U/L Alkaline Phosphatase 63 (38-126) U/L Total Protein 7.1 (6.3-8.2) g/dL Albumin 4.8 (3.5-5.0) g/dL Urine Color Urine Appearance (Clear) Urine pH (5.0-8.0) Ur Specific [place] (1.001-1.035) Urine Protein (Negative) Urine Glucose (UA) (Negative) Urine Ketones (Negative) Urine Blood (Negative) Urine Nitrite (Negative) Urine Bilirubin (Negative) Urine Urobilinogen (<2.0) mg/dL Ur Leukocyte Esterase (Negative) Urine RBC (0-5) /hpf Urine WBC (0-5) /hpf Ur Squamous Epith Cells (0-4) /hpf Urine Bacteria (None) /hpf Hyaline Casts (0-2) /lpf Urine HCG, Qual Not Detected (Not Detectd) - Radiology Data Radiology results: report reviewed, image reviewed Transvaginal ultrasound was obtained. Report was reviewed in its entirety. Impression is negative transvaginal pelvic sonogram. Disposition Clinical Impression: Dysfunctional uterine bleeding Disposition: HOME SELF-CARE Condition: Good Instructions (If sedation given, give patient instructions): Dysfunctional Uterine Bleeding (ED) Additional Instructions: Follow up with OBGYN for recheck as soon as possible. Return for any new, worsening, or concerning symptoms. Is patient prescribed a controlled substance at d/c from ED?: No Referrals: Bill Ashley DO [Primary Care Provider] - 1-2 days Time of Disposition: 21:37
[2020-07-19 20:23] LABS: Basophils # (A) 0.1 k/uL (0-0.2); Basophils % (A) 1 %; Eosinophils # (A) 0.1 k/uL (0-0.7); Eosinophils % (A) 1 %; HCT 40.6 % (34.0-46.0); HGB 13.7 gm/dL (11.4-16.0); Lymphocytes # (A) 1.5 k/uL (1.0-4.8); Lymphocytes % (A) 26 %; MCH 30.8 pg (25.0-35.0); MCHC 33.7 g/dL (31.0-37.0); MCV 91.3 fL (80.0-100.0); Mean Platelet Volume 10.2; Monocytes # (A) 0.4 k/uL (0-1.0); Monocytes % (A) 7 %; Neutrophils # (A) 3.6 k/uL (1.3-7.7); Neutrophils % (A) 63 %; Platelet Count 161 k/uL (150-450); RBC 4.45 m/uL (3.80-5.40); RDW 12.4 % (11.5-15.5); WBC 5.7 k/uL (3.8-10.6)
[2020-07-19 20:33] LABS: Appearance,Urine Clear (Clear); Bacteria,Urine Rare /hpf; Bilirubin,Urine Negative (Negative); Blood,Urine Large (Negative); Color,Urine Light Yellow; Glucose,Urine (UA) Negative (Negative); Hyaline Casts,Urine 1 /lpf (0-2); Ketones,Urine Negative (Negative); Leukocyte Esterase,Urine Negative (Negative); Nitrite,Urine Negative (Negative); PH, Urine 6.5 (5.0-8.0); Protein,Urine Negative (Negative); RBC,Urine 2 /hpf (0-5); Specific Gravity,Urine 1.005 (1.001-1.035); Squamous Epithelial Cell,Urine <1 /hpf (0-4); Urobilinogen,Urine <2.0 mg/dL (<2.0); WBC,Urine <1 /hpf (0-5)
[2020-07-19 20:34] LABS: ALT 14 U/L (4-34); AST 19 U/L (14-36); African American GFR (CKD) >90 (>60 ml/min/1.73 sqM); Albumin 4.8 g/dL (3.5-5.0); Alkaline Phosphatase 63 U/L (38-126); Anion Gap 13 mmol/L; Blood Urea Nitrogen 10 mg/dL (7-17); Calcium 9.9 mg/dL (8.4-10.2); Carbon Dioxide 21 mmol/L (22-30); Chloride 110 mmol/L (98-107); Glucose 81 mg/dL (74-99); INR 1.1 (<1.2); Non-African American GFR(CKD) >90 (>60 ml/min/1.73 sqM); Partial Thromboplastin Time 24.8 sec (22.0-30.0); Potassium 3.8 mmol/L (3.5-5.1); Prothrombin Time 11.6 sec (9.0-12.0); Sodium 144 mmol/L (137-145); Total Bilirubin 0.4 mg/dL (0.2-1.3); Total Protein 7.1 g/dL (6.3-8.2)
--- NOTE | 2020-07-19 21:29 | US ---
EXAMINATION TYPE: US transvaginal DATE OF EXAM: 07/19/2020 COMPARISON: CT 2020 CLINICAL HISTORY: Prolonged vaginal bleeding. Patient states having depo shot x 3 months ago and has been bleeding since. No pain. TECHNIQUE: Transvaginal (TV) Date of LMP: 04/22/2020, EXAM MEASUREMENTS: Uterus: 7.7 x 4.9 x 3.8 cm Endometrial Stripe: 0.5 cm Right Ovary: 2.9 x 2.0 x 2.0 cm Left Ovary: 2.6 x 1.9 x 1.8 cm 1. Uterus: Anteverted No abnormality visualized 2. Endometrium: No abnormality visualized 3. Right Ovary: Follicles seen 4. Left Ovary: Follicles seen 5. Bilateral Adnexa: No abnormality visualized 6. Posterior cul-de-sac: no free fluid 7. Cervix: No abnormality visualized IMPRESSION: Negative transvaginal pelvic sonogram.
[2020-07-19 21:44] VITALS: BP 118/74; PULSE 68; RESP 18
== END 2020-07-19 21:47 | disposition home or self-care (01) ==
LOC: EC 18:27
DX: N93.8 Other specified abnormal uterine and vaginal bleeding (principal); J45.909 Unspecified asthma, uncomplicated; E07.9 Disorder of thyroid, unspecified; Z87.891 Personal history of nicotine dependence; Z88.0 Allergy status to penicillin; Z91.011 Allergy to milk products; Z91.040 Latex allergy status; Z79.890 Hormone replacement therapy
CPT/HCPCS: 36415; 76830; 80053; 81001; 81025; 85025; 85610; 85730; 99284

== ENCOUNTER 2020-08-15 03:39 | Emergency (ER) | payer BC, OTHER ==
[2020-08-15 03:46] VITALS: RESP 16; TEMP 98.2
[2020-08-15] MEDS ORDERED: SODIUM CHLORIDE 0.9% 1,000 ML IV STA ×2 (04:13)
[2020-08-15] MEDS ORDERED: DEXAMETHASONE SOD PHOSPHATE 10 MG/ML 1 ML VIAL IV STA (04:14)
[2020-08-15] MEDS ORDERED: ONDANSETRON 4 MG/2 ML VIAL IVP STA (04:14)
[2020-08-15] MEDS ORDERED: KETOROLAC 15 MG/ML 1 ML VIAL IVP STA (04:14)
--- NOTE | 2020-08-15 04:15 | ED ---
Nausea/Vomiting/Diarrhea HPI - General Chief complaint: Nausea/Vomiting/Diarrhea Stated complaint: Vomiting Time Seen by Provider: 08/15/20 03:40 Source: patient, RN notes reviewed, old records reviewed Mode of arrival: ambulatory Limitations: no limitations - History of Present Illness Initial comments: This is a 20-year-old female DF for evaluation patient Dese for evaluation regards to nausea vomiting. Persistent nausea vomiting here in the emergency department. Patient states she woke up one hour m. Patient is convinced that she has coronavirus. Otherwise no complaints no fevers no pain MD complaint: nausea, vomiting -: hour(s) Description of Vomiting: food contents Associated Abdominal Pain: No Radiation: none Severity: moderate Consistency: constant Improves with: none Worsens with: none Context: other (none) Associated Symptoms: nausea/vomiting - Related Data Home Medications Medication Instructions Recorded Confirmed Albuterol Inhaler [Ventolin Hfa 1 puff INHALATION RT-Q4H PRN 07/19/20 07/19/20 Inhaler] Fluticasone Nasal [place] [Flonase 1 spr EA NOSTRIL DAILY 07/19/20 07/19/20 Nasal [place]] Levothyroxine Sodium [Synthroid] 25 mcg PO DAILY 07/19/20 07/19/20 Medroxyprogesterone Acetate 150 mg IM Q90D 07/19/20 07/19/20 [Depo-Provera] busPIRone HCl [Buspar] 5 mg PO BID 07/19/20 07/19/20 Previous Rx's Medication Instructions Recorded Cephalexin [Keflex] 500 mg PO Q6H #28 cap 08/15/20 Allergies Allergy/AdvReac Type Severity Reaction Status Date / Time milk Allergy Severe Rash/Hives Verified 08/15/20 19:45 amoxicillin [Amoxicillin] Allergy Anaphylaxis Verified 08/15/20 19:45 latex Allergy Rash/Hives Verified 08/15/20 19:45 Milk Containing Products Allergy Rash/Hives Verified 08/15/20 19:45 [Dairy] Review of Systems ROS Statement: Those systems with pertinent positive or pertinent negative responses have been documented in the HPI. ROS Other: All systems not noted in ROS Statement are negative. 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 anemia. borderline personality disorder, agoraphobia, PPD History of Any Multi-Drug Resistant Organisms: None Reported Past Surgical History: Ear Surgery Additional Past Surgical History / Comment(s): PE tubes, Past Anesthesia/Blood Transfusion Reactions: No Reported Reaction Past Psychological History: ADD/ADHD, Anxiety, Bipolar, Depression, PTSD Smoking Status: Former smoker Past Alcohol Use History: Occasional Past Drug Use History: Marijuana - Past Family History Mother Family Medical History: No Reported History General Exam Limitations: no limitations General appearance: alert, in no apparent distress Head exam: Present: atraumatic, normocephalic, normal inspection Eye exam: Present: normal appearance, PERRL, EOMI. Absent: scleral icterus, conjunctival injection, periorbital swelling ENT exam: Present: normal exam, mucous membranes moist Neck exam: Present: normal inspection. Absent: tenderness, meningismus, lymphadenopathy Respiratory exam: Present: normal lung sounds bilaterally. Absent: respiratory distress, wheezes, rales, rhonchi, stridor Cardiovascular Exam: Present: regular rate, normal rhythm, normal heart sounds. Absent: systolic murmur, diastolic murmur, rubs, gallop, clicks GI/Abdominal exam: Present: soft, normal bowel sounds. Absent: distended, tenderness, guarding, rebound, rigid Extremities exam: Present: normal inspection, full ROM, normal capillary refill. Absent: tenderness, pedal edema, joint swelling, calf tenderness Back exam: Present: normal inspection Neurological exam: Present: alert, oriented X3, CN II-XII intact Psychiatric exam: Present: normal affect, normal mood Skin exam: Present: warm, dry, intact, normal color. Absent: rash Course Vital Signs 08/15/20 08/15/20 03:44 05:35 Temperature 98.2 F Pulse Rate 69 75 Respiratory 16 16 Rate Blood Pressure 122/88 117/88 O2 Sat by Pulse 98 98 Oximetry - Reevaluation(s) Reevaluation #1: Medical record is reviewed Patient symptoms are improved here in the ER Patient is in no acute distress Patient is informed of results and questions answered Medical Decision Making - Medical Decision Making 20 female to the ER for evaluation of nausea vomiting. Symptoms are significantly improved here in the ER and patient can be discharged home - Lab Data Result diagrams: 08/15/20 04:20 08/15/20 04:20 Lab Results 08/15/20 08/15/20 08/15/20 Range/Units 04:20 04:20 04:20 WBC 13.4 H (3.8-10.6) k/uL RBC 4.90 (3.80-5.40) m/uL Hgb 14.8 (11.4-16.0) gm/dL Hct 44.1 (34.0-46.0) % MCV 89.9 (80.0-100.0) fL MCH 30.2 (25.0-35.0) pg MCHC 33.5 (31.0-37.0) g/dL RDW 13.0 (11.5-15.5) % Plt Count 193 (150-450) k/uL MPV 8.9 Neutrophils % 78 % Lymphocytes % 15 % Monocytes % 5 % Eosinophils % 2 % Basophils % 0 % Neutrophils # 10.4 H (1.3-7.7) k/uL Lymphocytes # 2.0 (1.0-4.8) k/uL Monocytes # 0.6 (0-1.0) k/uL Eosinophils # 0.2 (0-0.7) k/uL Basophils # 0.1 (0-0.2) k/uL Sodium 140 (137-145) mmol/L Potassium 3.7 (3.5-5.1) mmol/L Chloride 107 (98-107) mmol/L Carbon Dioxide 22 (22-30) mmol/L Anion Gap 11 mmol/L BUN 11 (7-17) mg/dL Creatinine 0.67 (0.52-1.04) mg/dL Est GFR (CKD-EPI)AfAm >90 (>60 ml/min/1.73 sqM) Est GFR (CKD-EPI)NonAf >90 (>60 ml/min/1.73 sqM) Glucose 108 H (74-99) mg/dL Calcium 9.5 (8.4-10.2) mg/dL Magnesium 1.9 (1.6-2.3) mg/dL Total Bilirubin 0.1 L (0.2-1.3) mg/dL AST 20 (14-36) U/L ALT 15 (4-34) U/L Alkaline Phosphatase 57 (38-126) U/L Lactate Dehydrogenase 432 (313-618) U/L C-Reactive Protein 0.8 (<1.0) mg/dL Total Protein 6.6 (6.3-8.2) g/dL Albumin 4.4 (3.5-5.0) g/dL Coronavirus (PCR) Not Detected (Not Detectd) - Radiology Data Radiology results: report reviewed (Chest x-rays negative for acute disease), image reviewed Disposition Clinical Impression: Nausea & vomiting Disposition: HOME SELF-CARE Condition: Good Instructions (If sedation given, give patient instructions): Acute Nausea and Vomiting (ED) Is patient prescribed a controlled substance at d/c from ED?: No Referrals: Bill Ashley DO [Primary Care Provider] - 1-2 days
[2020-08-15 04:44] LABS: Basophils # (A) 0.1 k/uL (0-0.2); Basophils % (A) 0 %; Eosinophils # (A) 0.2 k/uL (0-0.7); Eosinophils % (A) 2 %; HCT 44.1 % (34.0-46.0); HGB 14.8 gm/dL (11.4-16.0); Lymphocytes % (A) 15 %; MCH 30.2 pg (25.0-35.0); MCHC 33.5 g/dL (31.0-37.0); MCV 89.9 fL (80.0-100.0); Mean Platelet Volume 8.9; Monocytes # (A) 0.6 k/uL (0-1.0); Monocytes % (A) 5 %; Neutrophils # (A) 10.4 k/uL (1.3-7.7); Neutrophils % (A) 78 %; Platelet Count 193 k/uL (150-450); WBC 13.4 k/uL (3.8-10.6)
--- NOTE | 2020-08-15 05:02 | XR ---
EXAMINATION TYPE: XR chest 1V portable DATE OF EXAM: 08/15/2020 COMPARISON: 12/28/2019 HISTORY: Trauma. Pain. TECHNIQUE: Single view FINDINGS: Heart and mediastinum are normal. Lungs are clear. Diaphragm is normal. Bony thorax is inta ct. Pulmonary vascularity is normal. IMPRESSION: Normal chest. No change.
[2020-08-15 05:04] LABS: ALT 15 U/L (4-34); AST 20 U/L (14-36); African American GFR (CKD) >90 (>60 ml/min/1.73 sqM); Albumin 4.4 g/dL (3.5-5.0); Alkaline Phosphatase 57 U/L (38-126); Anion Gap 11 mmol/L; Blood Urea Nitrogen 11 mg/dL (7-17); C Reactive Protein 0.8 mg/dL (<1.0); Calcium 9.5 mg/dL (8.4-10.2); Carbon Dioxide 22 mmol/L (22-30); Chloride 107 mmol/L (98-107); Glucose 108 mg/dL (74-99); LDH 432 U/L (313-618); Magnesium 1.9 mg/dL (1.6-2.3); Non-African American GFR(CKD) >90 (>60 ml/min/1.73 sqM); Potassium 3.7 mmol/L (3.5-5.1); Sodium 140 mmol/L (137-145); Total Bilirubin 0.1 mg/dL (0.2-1.3); Total Protein 6.6 g/dL (6.3-8.2)
[2020-08-15] MEDS ORDERED: ONDANSETRON 4 MG ODT STARTER PACK 2 TAB BTL PO STA (05:20)
[2020-08-15 05:45] VITALS: BP 117/88; PULSE 75
== END 2020-08-15 05:35 | disposition home or self-care (01) ==
LOC: EC 03:39
DX: R11.2 Nausea with vomiting, unspecified (principal); E07.9 Disorder of thyroid, unspecified; J45.909 Unspecified asthma, uncomplicated; Z87.891 Personal history of nicotine dependence; Z88.0 Allergy status to penicillin; Z91.040 Latex allergy status; Z91.011 Allergy to milk products; Z20.822 Contact with and (suspected) exposure to COVID-19; Z79.890 Hormone replacement therapy
CPT/HCPCS: 36415; 80053; 83615; 83735; 85025; 86140; 87635; 71045; 99284; 96374; 96375; 96361; J1100; J2405; J1885; S0119

== ENCOUNTER 2020-08-15 19:43 | Emergency (ER) | payer BC, OTHER ==
[2020-08-15 19:49] VITALS: TEMP 97.9
--- NOTE | 2020-08-15 20:08 | ED ---
Female Urogenital HPI - General Chief complaint: Urogenital Stated complaint: Possible STD Time Seen by Provider: 08/15/20 19:53 Source: patient Mode of arrival: ambulatory Limitations: no limitations - History of Present Illness Initial comments: 20-year-old female patient presents to the emergency department today for evaluation of dysuria and vaginal discharge. Patient's that she's had symptoms for the last couple of weeks. States her significant other started talking about an itching sensation so they were both concerned he may have sexually tr ansmitted infection. She denies any fever or chills. States she has been having some gastrointestinal issues which she was evaluated for in the emergency department a day or 2 ago. States that she was receiving Depo shot for control and is a month late to have her next injection. Patient denies any recent rash, cough, shortness of breath, chest pain, back pain, numbness, tingling, dizziness, weakness, headache, visual changes, or any other complaints. - Related Data Home Medications Medication Instructions Recorded Confirmed Albuterol Inhaler [Ventolin Hfa 1 puff INHALATION RT-Q4H PRN 07/19/20 07/19/20 Inhaler] Fluticasone Nasal [place] [Flonase 1 spr EA NOSTRIL DAILY 07/19/20 07/19/20 Nasal [place]] Levothyroxine Sodium [Synthroid] 25 mcg PO DAILY 07/19/20 07/19/20 Medroxyprogesterone Acetate 150 mg IM Q90D 07/19/20 07/19/20 [Depo-Provera] busPIRone HCl [Buspar] 5 mg PO BID 07/19/20 07/19/20 Previous Rx's Medication Instructions Recorded Cephalexin [Keflex] 500 mg PO Q6H #28 cap 08/15/20 Allergies Allergy/AdvReac Type Severity Reaction Status Date / Time milk Allergy Severe Rash/Hives Verified 08/15/20 19:45 amoxicillin [Amoxicillin] Allergy Anaphylaxis Verified 08/15/20 19:45 latex Allergy Rash/Hives Verified 08/15/20 19:45 Milk Containing Products Allergy Rash/Hives Verified 08/15/20 19:45 [Dairy] Review of Systems ROS Statement: Those systems with pertinent positive or pertinent negative responses have been documented in the HPI. ROS Other: All systems not noted in ROS Statement are negative. 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 anemia. borderline personality disorder, agoraphobia, PPD History of Any Multi-Drug Resistant Organisms: None Reported Past Surgical History: Ear Surgery Additional Past Surgical History / Comment(s): PE tubes, Past Anesthesia/Blood Transfusion Reactions: No Reported Reaction Past Psychological History: ADD/ADHD, Anxiety, Bipolar, Depression, PTSD Smoking Status: Former smoker Past Alcohol Use History: Occasional Past Drug Use History: Marijuana - Past Family History Mother Family Medical History: No Reported History General Exam Limitations: no limitations General appearance: alert, in no apparent distress, other (This is a well- developed, well-nourished adult female patient in no acute distress. Vital signs upon presentation temperature 97.9F, pulse 95, respirations 16, blood pressure 120/78, pulse ox 98% on room air.) ENT exam: Present: normal exam, normal oropharynx, mucous membranes moist Respiratory exam: Present: normal lung sounds bilaterally. Absent: respiratory distress, wheezes, rales, rhonchi, stridor Cardiovascular Exam: Present: regular rate, normal rhythm, normal heart sounds. Absent: systolic murmur, diastolic murmur, rubs, gallop, clicks GI/Abdominal exam: Present: soft, normal bowel sounds. Absent: distended, tenderness, guarding, rebound, rigid Neurological exam: Present: alert, oriented X3, CN II-XII intact Psychiatric exam: Present: normal affect, normal mood Skin exam: Present: warm, dry, intact, normal color. Absent: rash Course Vital Signs 08/15/20 08/15/20 19:45 21:48 Temperature 97.9 F Pulse Rate 95 79 Respiratory 16 18 Rate Blood Pressure 120/78 133/87 O2 Sat by Pulse 98 98 Oximetry Medical Decision Making - Medical Decision Making 20-year-old female patient presents to the emergency department today for evaluation of dysuria and vaginal discharge. Physical examination revealed soft nontender abdomen. No CVA tenderness. She is afebrile. She is concerned for sexually transmitted infection. We did send cultures for gonorrhea and chlamydia. Trichomonas was negative. She was given empiric treatment for STI. She is allergic to amoxicillin. We did hold for 30 minutes after rocephin given. Urinalysis did show evidence for infection so she is also given prescription for antibiotic for UTI. She'll be discharged follow up with the primary care physician for recheck in 1-2 days. Return parameters discussed in detail. She verbalizes understanding and agrees with this plan. My attending is Dr. Khan. - Lab Data Lab Results 08/15/20 08/15/20 08/15/20 Range/Units 20:19 20:19 20:19 Urine Color Light Yellow Urine Appearance Cloudy H (Clear) Urine pH 7.0 (5.0-8.0) Ur Specific [place] 1.010 (1.001-1.035) Urine Protein Negative (Negative) Urine Glucose (UA) Negative (Negative) Urine Ketones Negative (Negative) Urine Blood Small H (Negative) Urine Nitrite Negative (Negative) Urine Bilirubin Negative (Negative) Urine Urobilinogen <2.0 (<2.0) mg/dL Ur Leukocyte Esterase Large H (Negative) Urine RBC 10 H (0-5) /hpf Urine WBC 148 H (0-5) /hpf Ur Squamous Epith Cells 4 (0-4) /hpf Urine Bacteria Rare H (None) /hpf Urine Yeast (Budding) Rare H (None) /hpf Urine HCG, Qual Not Detected (Not Detectd) Trichomonas Ag (Rapid) Negative (Negative) Disposition Clinical Impression: UTI (urinary tract infection), Concern about STD in female without diagnosis Disposition: HOME SELF-CARE Condition: Good Instructions (If sedation given, give patient instructions): Sexually Transmitted Diseases (ED), Urinary Tract Infection in Women (ED) Additional Instructions: Complete antibiotic prescription in full. Follow-up through primary care physician for recheck in 1-2 days. Return for any new, worsening, or concerning symptoms. Prescriptions: Cephalexin [Keflex] 500 mg PO Q6H #28 cap Is patient prescribed a controlled substance at d/c from ED?: No Referrals: Bill Ashley DO [Primary Care Provider] - 1-2 days Time of Disposition: 20:47
[2020-08-15 20:40] LABS: Appearance,Urine Cloudy (Clear); Bacteria,Urine Rare /hpf; Bilirubin,Urine Negative (Negative); Blood,Urine Small (Negative); Budding Yeast,Urine Rare /hpf; Color,Urine Light Yellow; Glucose,Urine (UA) Negative (Negative); Ketones,Urine Negative (Negative); Leukocyte Esterase,Urine Large (Negative); Nitrite,Urine Negative (Negative); Protein,Urine Negative (Negative); RBC,Urine 10 /hpf (0-5); Squamous Epithelial Cell,Urine 4 /hpf (0-4); Urobilinogen,Urine <2.0 mg/dL (<2.0); WBC,Urine 148 /hpf (0-5)
[2020-08-15] MEDS ORDERED: cefTRIAXone 1,000 MG VIAL (IM USE) IM STA (20:45)
[2020-08-15] MEDS ORDERED: AZITHROMYCIN 500 MG TAB PO STA (20:45)
[2020-08-15 21:50] VITALS: BP 133/87; PULSE 79; RESP 18
== END 2020-08-15 21:49 | disposition home or self-care (01) ==
LOC: EC 19:43
DX: N39.0 Urinary tract infection, site not specified (principal); J45.909 Unspecified asthma, uncomplicated; M19.90 Unspecified osteoarthritis, unspecified site; Z87.891 Personal history of nicotine dependence; Z91.040 Latex allergy status; Z88.1 Allergy status to other antibiotic agents; Z91.011 Allergy to milk products; Z79.890 Hormone replacement therapy
CPT/HCPCS: 81001; 81025; 87808; 87491; 87591; 87070; 87086; 99283; 96372; J0696

== ENCOUNTER 2020-08-20 19:56 | Emergency (ER) | payer BC, OTHER ==
[2020-08-20 20:00] VITALS: BP 124/82; PULSE 74; RESP 16; TEMP 97.2
--- NOTE | 2020-08-20 21:03 | ED ---
URI HPI - General Chief Complaint: Upper Respiratory Infection Stated Complaint: SOB Source: patient, family, RN notes reviewed, old records reviewed Mode of arrival: ambulatory Limitations: no limitations - History of Present Illness Initial Comments: 20-year-old well-appearing white female presents to the emergency room with complaints of 2 weeks of runny nose cough and sore throat. Patient states she has asthma and also has some chest tightness and has been using her albuterol daily. Patient states that she has been back and forth to walk-in [facility] emergency room and here for the same symptoms. She states that she was tested for Covid last week and was negative. She said she was prescribed multiple doses of antibiotics and steroids over the past 2 weeks with no relief. Patient states that she does not have a fever, does not have a productive cough. States that she does have nausea with a sore throat. Patient states that she has a history of depression and anxiety but is not known the name of her medications. Patient does have seasonal ALLERGIES but does not take any medication for it. MD Complaint: sore throat, rhinorrhea, nasal congestion -: week(s) (2) Severity scale (1-10): 9 Consistency: constant Improves With: nothing Worsens With: nothing Associated Symptoms: rhinorrhea, nasal congestion, sore throat, cough, nausea - Related Data Home Medications Medication Instructions Recorded Confirmed Albuterol Inhaler [Ventolin Hfa 1 puff INHALATION RT-Q4H PRN 07/19/20 07/19/20 Inhaler] Fluticasone Nasal [place] [Flonase 1 spr EA NOSTRIL DAILY 07/19/20 07/19/20 Nasal [place]] Levothyroxine Sodium [Synthroid] 25 mcg PO DAILY 07/19/20 07/19/20 Medroxyprogesterone Acetate 150 mg IM Q90D 07/19/20 07/19/20 [Depo-Provera] busPIRone HCl [Buspar] 5 mg PO BID 07/19/20 07/19/20 Previous Rx's Medication Instructions Recorded Cephalexin [Keflex] 500 mg PO Q6H #28 cap 08/15/20 Famotidine [Pepcid] 20 mg PO DAILY 28 Days #28 tablet 08/20/20 Fluticasone Nasal [place] [Flonase 2 spr EA NOSTRIL DAILY #1 bottle 08/20/20 Nasal [place]] Loratadine-Pseudoeph 10-240 mg 1 tab PO DAILY 30 Days #30 tab 08/20/20 [Claritin-D 24 Hour] Allergies Allergy/AdvReac Type Severity Reaction Status Date / Time milk Allergy Severe Rash/Hives Verified 08/20/20 19:57 amoxicillin [Amoxicillin] Allergy Anaphylaxis Verified 08/20/20 19:57 latex Allergy Rash/Hives Verified 08/20/20 19:57 Milk Containing Products Allergy Rash/Hives Verified 08/20/20 19:57 [Dairy] Review of Systems ROS Statement: Those systems with pertinent positive or pertinent negative responses have been documented in the HPI. ROS Other: All systems not noted in ROS Statement are negative. 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 anemia. borderline personality disorder, agoraphobia, PPD History of Any Multi-Drug Resistant Organisms: None Reported Past Surgical History: Ear Surgery Additional Past Surgical History / Comment(s): PE tubes, Past Anesthesia/Blood Transfusion Reactions: No Reported Reaction Past Psychological History: ADD/ADHD, Anxiety, Bipolar, Depression, PTSD Smoking Status: Former smoker Past Alcohol Use History: Occasional Past Drug Use History: Marijuana - Past Family History Mother Family Medical History: No Reported History General Exam Limitations: no limitations General appearance: alert, in no apparent distress Head exam: Present: atraumatic, normocephalic, normal inspection Eye exam: Present: normal appearance, PERRL, EOMI. Absent: scleral icterus, conjunctival injection, periorbital swelling Pupils: Present: normal accommodation ENT exam: Present: normal exam (Throat is erythematous with no tonsillar exudates), mucous membranes moist, TM's normal bilaterally Neck exam: Present: normal inspection, full ROM. Absent: tenderness, meningismus, lymphadenopathy, thyromegaly Respiratory exam: Present: normal lung sounds bilaterally. Absent: respiratory distress, wheezes, rales, rhonchi, stridor, chest wall tenderness, accessory muscle use, decreased breath sounds, prolonged expiratory Cardiovascular Exam: Present: regular rate, normal rhythm, normal heart sounds. Absent: systolic murmur, diastolic murmur, rubs, gallop, clicks GI/Abdominal exam: Present: soft, normal bowel sounds. Absent: distended, tenderness, guarding, rebound, rigid Extremities exam: Present: normal inspection, full ROM, normal capillary refill. Absent: tenderness, pedal edema, joint swelling, calf tenderness Back exam: Present: normal inspection, full ROM. Absent: tenderness, CVA tenderness (R), CVA tenderness (L), muscle spasm, paraspinal tenderness, vertebral tenderness Neurological exam: Present: alert, oriented X3, CN II-XII intact Psychiatric exam: Present: normal affect, normal mood Skin exam: Present: warm, dry, intact, normal color. Absent: rash, cyanosis, diaphoretic, erythema, petechiae, pallor, mottled Course Vital Signs 08/20/20 19:58 Temperature 97.2 F L Pulse Rate 74 Respiratory 16 Rate Blood Pressure 124/82 O2 Sat by Pulse 100 Oximetry Medical Decision Making - Medical Decision Making Patient with clear nasal drainage, Erythematous oropharynx with no tonsillar exudates. Patient has been afebrile. She has been treated multiple times with antibiotics over the past 2 weeks from walk-in clinics and other ERs with no relief. Chest x-ray done 2 days ago and was negative here and at [facility]. She does not have a productive cough. She does admit to having seasonal ALLERGIES but does not take any medication for it. She is using her albuterol daily for cough which is likely related to postnasal drip. Patient will be treated with Claritin, Pepcid and Flonase. Directed to follow up with her primary care doctor for continuation of care. Patient directed to return to the emergency room with increasing shortness of breath, fevers or worsening chest pain. Case discussed with . Disposition Clinical Impression: Bronchitis, Environmental and seasonal allergies, Yeast infection Disposition: HOME SELF-CARE Condition: Good Instructions (If sedation given, give patient instructions): Allergies (ED), Bronchospasm (ED) Additional Instructions: Take Claritin or Zyrtec daily, use Flonase as prescribed, take Pepcid daily, follow-up with your primary care doctor continuation of care of your asthma. Prescriptions: Loratadine-Pseudoeph 10-240 mg [Claritin-D 24 Hour] 1 tab PO DAILY 30 Days #30 tab Fluticasone Nasal [place] [Flonase Nasal [place]] 2 spr EA NOSTRIL DAILY #1 bottle Famotidine [Pepcid] 20 mg PO DAILY 28 Days #28 tablet Is patient prescribed a controlled substance at d/c from ED?: No Referrals: Bill Ashley DO [Primary Care Provider] - 1-2 days Time of Disposition: 21:03
[2020-08-20] MEDS ORDERED: FLUCONAZOLE 150 MG TAB PO STA (21:14)
== END 2020-08-20 21:30 | disposition home or self-care (01) ==
LOC: EC 19:56
DX: J40 Bronchitis, not specified as acute or chronic (principal); J30.2 Other seasonal allergic rhinitis; B37.9 Candidiasis, unspecified; G40.909 Epilepsy, unspecified, not intractable, without status epilepticus; J45.909 Unspecified asthma, uncomplicated; Z87.891 Personal history of nicotine dependence; E07.9 Disorder of thyroid, unspecified; Z79.890 Hormone replacement therapy; Z79.899 Other long term (current) drug therapy; Z91.040 Latex allergy status; Z88.1 Allergy status to other antibiotic agents; Z91.011 Allergy to milk products
CPT/HCPCS: 99284

== ENCOUNTER 2020-09-06 12:16 | Emergency (ER) | payer BC, OTHER ==
[2020-09-06 12:32] VITALS: TEMP 98.2
[2020-09-06 13:17] LABS: Basophils % (A) 1 %; Eosinophils # (A) 0.2 k/uL (0-0.7); Eosinophils % (A) 3 %; HCT 37.1 % (34.0-46.0); HGB 12.8 gm/dL (11.4-16.0); Lymphocytes # (A) 2.3 k/uL (1.0-4.8); Lymphocytes % (A) 38 %; MCH 31.4 pg (25.0-35.0); MCHC 34.4 g/dL (31.0-37.0); MCV 91.3 fL (80.0-100.0); Mean Platelet Volume 9.2; Monocytes # (A) 0.3 k/uL (0-1.0); Monocytes % (A) 6 %; Neutrophils % (A) 51 %; Platelet Count 201 k/uL (150-450); RBC 4.07 m/uL (3.80-5.40); RDW 13.9 % (11.5-15.5)
[2020-09-06 13:48] LABS: Amorphous Sediment,Urine Many /hpf; Appearance,Urine Turbid (Clear); Bilirubin,Urine Negative (Negative); Blood,Urine Moderate (Negative); Color,Urine Yellow; Glucose,Urine (UA) Negative (Negative); Ketones,Urine Negative (Negative); Leukocyte Esterase,Urine Negative (Negative); Mucus,Urine Rare /hpf; Nitrite,Urine Negative (Negative); PH, Urine 7.5 (5.0-8.0); Protein,Urine Negative (Negative); RBC,Urine 6 /hpf (0-5); Specific Gravity,Urine 1.017 (1.001-1.035); Squamous Epithelial Cell,Urine <1 /hpf (0-4); Urobilinogen,Urine <2.0 mg/dL (<2.0); WBC,Urine 2 /hpf (0-5)
--- NOTE | 2020-09-06 14:11 | ED ---
Female Urogenital HPI - General Source: patient Mode of arrival: ambulatory Limitations: no limitations <Torrie Nicholson - Last Filed: 09/06/20 14:53> <Telma Chambersah Gloria - Last Filed: 09/07/20 15:38> - General Chief complaint: Vaginal Bleeding Stated complaint: Vaginal bleeding Time Seen by Provider: 09/06/20 12:35 - History of Present Illness Initial comments: Patient is a 20-year-old female presenting to the emergency Department with complaints of vaginal bleeding over the past 3 days. Patient states she had just finished her normal menstrual cycle last week, she took the morning-after pill 4 days ago, the next day she started having vaginal bleeding and cramping again. She states she does have history of anemia, she called her doctor and he recommended coming in for further evaluation. She states her cramping is like normal. Cramps, bilaterally lower abdomen. She has been going through a few different tampons every couple hours. She denies any chest pain or shortness of breath, no dizziness or lightheadedness. She is no further complaints. (Torrie Nicholson) - Related Data Home Medications Medication Instructions Recorded Confirmed Albuterol Inhaler [Ventolin Hfa 1 puff INHALATION RT-Q4H PRN 07/19/20 07/19/20 Inhaler] Fluticasone Nasal [place] [Flonase 1 spr EA NOSTRIL DAILY 07/19/20 07/19/20 Nasal [place]] Levothyroxine Sodium [Synthroid] 25 mcg PO DAILY 07/19/20 07/19/20 Medroxyprogesterone Acetate 150 mg IM Q90D 07/19/20 07/19/20 [Depo-Provera] busPIRone HCl [Buspar] 5 mg PO BID 07/19/20 07/19/20 Previous Rx's Medication Instructions Recorded Cephalexin [Keflex] 500 mg PO Q6H #28 cap 08/15/20 Famotidine [Pepcid] 20 mg PO DAILY 28 Days #28 tablet 08/20/20 Fluticasone Nasal [place] [Flonase 2 spr EA NOSTRIL DAILY #1 bottle 08/20/20 Nasal [place]] Loratadine-Pseudoeph 10-240 mg 1 tab PO DAILY 30 Days #30 tab 08/20/20 [Claritin-D 24 Hour] Allergies Allergy/AdvReac Type Severity Reaction Status Date / Time milk Allergy Severe Rash/Hives Verified 09/06/20 12:31 amoxicillin [Amoxicillin] Allergy Anaphylaxis Verified 09/06/20 12:31 latex Allergy Rash/Hives Verified 09/06/20 12:31 Milk Containing Products Allergy Rash/Hives Verified 09/06/20 12:31 [Dairy] Review of Systems ROS Other: All systems not noted in ROS Statement are negative. <Torrie Nicholson - Last Filed: 09/06/20 14:53> ROS Other: All systems not noted in ROS Statement are negative. <Leora Chambers - Last Filed: 09/07/20 15:38> ROS Statement: Those systems with pertinent positive or pertinent negative responses have been documented in the HPI. 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 anemia. borderline personality disorder, agoraphobia, PPD History of Any Multi-Drug Resistant Organisms: None Reported Past Surgical History: Ear Surgery Additional Past Surgical History / Comment(s): PE tubes, Past Anesthesia/Blood Transfusion Reactions: No Reported Reaction Past Psychological History: ADD/ADHD, Anxiety, Bipolar, Depression, PTSD Smoking Status: Former smoker Past Alcohol Use History: Occasional Past Drug Use History: Marijuana - Past Family History Mother Family Medical History: No Reported History <Torrie Nicholson - Last Filed: 09/06/20 14:53> General Exam Limitations: no limitations <Torrie Nicholson - Last Filed: 09/06/20 14:53> - General Exam Comments Initial Comments: GENERAL: Patient is well-developed and well-nourished. Patient is nontoxic and in no acute distress. HEAD: Atraumatic, normocephalic. EYES: Pupils equal round and reactive to light, extraocular movements intact, sclera anicteric, conjunctiva are normal. Eyelids were unremarkable. ENT: Nares patent, oropharynx clear without exudates. Moist mucous membranes. NECK: Normal range of motion, supple without lymphadenopathy or JVD. LUNGS: Unlabored respirations. Breath sounds clear to auscultation bilaterally and equal. No wheezes rales or rhonchi. HEART: Regular rate and rhythm without murmurs, rubs or gallops. ABDOMEN: Soft, nontender, normoactive bowel sounds. No guarding, no rebound. No masses appreciated. : Deferred MUSCULOSKELETAL: Normal extremities with adequate strength and normal range of motion, no pitting or edema. No clubbing or cyanosis. NEUROLOGICAL: Patient is alert and oriented x 3. SKIN: Warm, Dry, normal turgor, no rashes or lesions noted. (Torrie Nicholson) Course Vital Signs 09/06/20 09/06/20 12:29 14:22 Temperature 98.2 F Pulse Rate 58 L 65 Respiratory 20 18 Rate Blood Pressure 106/70 104/60 O2 Sat by Pulse 100 99 Oximetry Medical Decision Making - Lab Data Result diagrams: 09/06/20 12:59 <Torrie Nicholson - Last Filed: 09/06/20 14:53> - Lab Data Result diagrams: 09/06/20 12:59 <Leora Chambers - Last Filed: 09/07/20 15:38> - Medical Decision Making Patient is a 20-year-old female here with vaginal bleeding over the past 3 days after taking a morning after pill 4 days ago. She went to some mild abdominal cramping. Her vitals are within normal limits, no significant abdominal pain on palpation. I did check a CBC, normal hemoglobin today. Urine shows no evidence of infection, hCG is not detected. I discussed the patient this is most likely secondary to the morning-after pill, recommended following up with her BLOCK TRIMMER or family doctor. She is agreeable to this and is stable for discharge. Case discussed with Dr. Chambers. (Torrie Nicholson) I was available for consultation in the emergency department. The history and physical exam were done by the midlevel provider. I was consulted for this patients care. I reviewed the case with the midlevel provider and based on their presentation of the patient, I agree with the assessment, medical decision making and plan of care as documented. Chart was dictated using [employer] dictation software. Attempts were made to correct any dictation errors however some typographical errors may persist. (Leora Cabrera) - Lab Data Lab Results 09/06/20 09/06/20 09/06/20 Range/Units 12:59 12:59 12:59 WBC 6.0 (3.8-10.6) k/uL RBC 4.07 (3.80-5.40) m/uL Hgb 12.8 (11.4-16.0) gm/dL Hct 37.1 (34.0-46.0) % MCV 91.3 (80.0-100.0) fL MCH 31.4 (25.0-35.0) pg MCHC 34.4 (31.0-37.0) g/dL RDW 13.9 (11.5-15.5) % Plt Count 201 (150-450) k/uL MPV 9.2 Neutrophils % 51 % Lymphocytes % 38 % Monocytes % 6 % Eosinophils % 3 % Basophils % 1 % Neutrophils # 3.0 (1.3-7.7) k/uL Lymphocytes # 2.3 (1.0-4.8) k/uL Monocytes # 0.3 (0-1.0) k/uL Eosinophils # 0.2 (0-0.7) k/uL Basophils # 0.0 (0-0.2) k/uL Urine Color Yellow Urine Appearance Turbid H (Clear) Urine pH 7.5 (5.0-8.0) Ur Specific [place] 1.017 (1.001-1.035) Urine Protein Negative (Negative) Urine Glucose (UA) Negative (Negative) Urine Ketones Negative (Negative) Urine Blood Moderate H (Negative) Urine Nitrite Negative (Negative) Urine Bilirubin Negative (Negative) Urine Urobilinogen <2.0 (<2.0) mg/dL Ur Leukocyte Esterase Negative (Negative) Urine RBC 6 H (0-5) /hpf Urine WBC 2 (0-5) /hpf Ur Squamous Epith Cells <1 (0-4) /hpf Amorphous Sediment Many H (None) /hpf Urine Mucus Rare H (None) /hpf Urine HCG, Qual Not Detected (Not Detectd) Disposition Is patient prescribed a controlled substance at d/c from ED?: No Time of Disposition: 14:10 <Torrie Nicholson - Last Filed: 09/06/20 14:53> <Leora Chambers - Last Filed: 09/07/20 15:38> Clinical Impression: Dysfunctional uterine bleeding Disposition: HOME SELF-CARE Condition: Stable Instructions (If sedation given, give patient instructions): Dysmenorrhea (ED) Additional Instructions: Please return to the Emergency Department if symptoms worsen or any other concerns. Please follow-up with your family doctor or [facility]MER. Referrals: Bill Ashley DO [Primary Care Provider] - 1-2 days
[2020-09-06 14:23] VITALS: BP 104/60; PULSE 65; RESP 18
== END 2020-09-06 14:24 | disposition home or self-care (01) ==
LOC: EC 12:16
DX: N93.8 Other specified abnormal uterine and vaginal bleeding (principal); J45.909 Unspecified asthma, uncomplicated; E07.9 Disorder of thyroid, unspecified; Z79.890 Hormone replacement therapy; Z88.0 Allergy status to penicillin; Z91.011 Allergy to milk products; Z87.891 Personal history of nicotine dependence; Z91.040 Latex allergy status
CPT/HCPCS: 36415; 81001; 81025; 85025; 99283

== ENCOUNTER 2020-09-22 16:12 | Emergency (ER) | payer BC, OTHER ==
[2020-09-22 16:16] VITALS: TEMP 97.4
[2020-09-22] MEDS ORDERED: KETOROLAC 15 MG/ML 1 ML VIAL IVP STA (16:29)
[2020-09-22 16:45] LABS: Basophils # (A) 0.1 k/uL (0-0.2); Basophils % (A) 1 %; Eosinophils # (A) 0.1 k/uL (0-0.7); Eosinophils % (A) 1 %; HCT 39.5 % (34.0-46.0); HGB 13.4 gm/dL (11.4-16.0); Lymphocytes # (A) 1.8 k/uL (1.0-4.8); Lymphocytes % (A) 19 %; MCH 30.8 pg (25.0-35.0); MCHC 33.9 g/dL (31.0-37.0); MCV 90.9 fL (80.0-100.0); Mean Platelet Volume 9.1; Monocytes # (A) 0.6 k/uL (0-1.0); Monocytes % (A) 6 %; Neutrophils # (A) 6.5 k/uL (1.3-7.7); Neutrophils % (A) 68 %; Platelet Count 213 k/uL (150-450); RBC 4.34 m/uL (3.80-5.40); RDW 13.7 % (11.5-15.5); WBC 9.5 k/uL (3.8-10.6)
[2020-09-22 16:54] LABS: ALT 13 U/L (4-34); AST 22 U/L (14-36); African American GFR (CKD) >90 (>60 ml/min/1.73 sqM); Albumin 4.2 g/dL (3.5-5.0); Alkaline Phosphatase 57 U/L (38-126); Anion Gap 10 mmol/L; Blood Urea Nitrogen 14 mg/dL (7-17); Carbon Dioxide 19 mmol/L (22-30); Chloride 110 mmol/L (98-107); Glucose 93 mg/dL (74-99); Non-African American GFR(CKD) >90 (>60 ml/min/1.73 sqM); Potassium 3.8 mmol/L (3.5-5.1); Sodium 139 mmol/L (137-145); Total Bilirubin 0.4 mg/dL (0.2-1.3); Total Protein 6.5 g/dL (6.3-8.2)
--- NOTE | 2020-09-22 16:55 | ED ---
Abdominal Pain HPI - General Chief Complaint: Abdominal Pain Stated Complaint: kidney pain Time Seen by Provider: 09/22/20 16:18 Source: patient Mode of arrival: wheelchair Limitations: no limitations - History of Present Illness Initial Comments: Patient is a 20-year-old female presenting to the emergency Department with complaints of right flank pain that started about 3 hours prior to arrival. She states she was walking through a store and noticed some discomfort. She states her boyfriend did rub the area and did seem to improve. She denies any nausea or vomiting, no abdominal pain, she does admit to some mild dysuria. She denies history of kidney stones. She denies any abdominal surgeries. She denies any fevers or chills. She states prior to this pain starting, she's been feeling her normal self, eating drinking as normal. Patient has no further complaints. Her vitals are stable upon arrival. - Related Data Home Medications Medication Instructions Recorded Confirmed Albuterol Inhaler [Ventolin Hfa 1 puff INHALATION RT-Q4H PRN 07/19/20 07/19/20 Inhaler] Fluticasone Nasal [place] [Flonase 1 spr EA NOSTRIL DAILY 07/19/20 07/19/20 Nasal [place]] Levothyroxine Sodium [Synthroid] 25 mcg PO DAILY 07/19/20 07/19/20 Medroxyprogesterone Acetate 150 mg IM Q90D 07/19/20 07/19/20 [Depo-Provera] busPIRone HCl [Buspar] 5 mg PO BID 07/19/20 07/19/20 Previous Rx's Medication Instructions Recorded Cephalexin [Keflex] 500 mg PO Q6H #28 cap 08/15/20 Famotidine [Pepcid] 20 mg PO DAILY 28 Days #28 tablet 08/20/20 Fluticasone Nasal [place] [Flonase 2 spr EA NOSTRIL DAILY #1 bottle 08/20/20 Nasal [place]] Loratadine-Pseudoeph 10-240 mg 1 tab PO DAILY 30 Days #30 tab 08/20/20 [Claritin-D 24 Hour] Cephalexin [Keflex] 500 mg PO BID 5 Days #10 cap 09/22/20 Allergies Allergy/AdvReac Type Severity Reaction Status Date / Time milk Allergy Severe Rash/Hives Verified 09/22/20 16:16 amoxicillin [Amoxicillin] Allergy Anaphylaxis Verified 09/22/20 16:16 latex Allergy Rash/Hives Verified 09/22/20 16:16 Milk Containing Products Allergy Rash/Hives Verified 09/22/20 16:16 [Dairy] Review of Systems ROS Statement: Those systems with pertinent positive or pertinent negative responses have been documented in the HPI. ROS Other: All systems not noted in ROS Statement are negative. 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 anemia. borderline personality disorder, agoraphobia, PPD History of Any Multi-Drug Resistant Organisms: None Reported Past Surgical History: Ear Surgery Additional Past Surgical History / Comment(s): PE tubes, Past Anesthesia/Blood Transfusion Reactions: No Reported Reaction Past Psychological History: ADD/ADHD, Anxiety, Bipolar, Depression, PTSD Smoking Status: Former smoker Past Alcohol Use History: Occasional Past Drug Use History: Marijuana - Past Family History Mother Family Medical History: No Reported History General Exam - General Exam Comments Initial Comments: GENERAL: Patient is well-developed and well-nourished. Patient is nontoxic and in no acute distress, playing a game on [employer]. HEAD: Atraumatic, normocephalic. EYES: Pupils equal round and reactive to light, extraocular movements intact, sclera anicteric, conjunctiva are normal. Eyelids were unremarkable. ENT: Moist mucous membranes. NECK: Normal range of motion, supple without lymphadenopathy or JVD. LUNGS: Unlabored respirations. Breath sounds clear to auscultation bilaterally and equal. No wheezes rales or rhonchi. HEART: Regular rate and rhythm without murmurs, rubs or gallops. ABDOMEN: Soft, nontender, normoactive bowel sounds. No guarding, no rebound. No masses appreciated. No flank pain. : Deferred MUSCULOSKELETAL: Normal extremities with adequate strength and normal range of motion, no pitting or edema. No clubbing or cyanosis. NEUROLOGICAL: Patient is alert and oriented x 3. SKIN: Warm, Dry, normal turgor, no rashes or lesions noted. Limitations: no limitations Course Vital Signs 09/22/20 16:13 Temperature 97.4 F L Pulse Rate 99 Respiratory 20 Rate Blood Pressure 100/54 O2 Sat by Pulse 100 Oximetry Medical Decision Making - Medical Decision Making Patient is a 20-year-old female here with right flank pain that started about 3 hours prior to arrival. She is in no acute distress, playing a game on her phone. Her vitals are stable, she does admit to some mild dysuria. Labs are all within normal limits, urine shows evidence for UTI, lots of WBCs in clumps, urine hCG is not detected. Patient be given 1 g Rocephin here in the ER and started on Keflex. She is agreeable as planned care and is stable for discharge. She can follow up with her primary care doctor. Case discussed with Dr. Gibson. - Lab Data Result diagrams: 09/22/20 16:37 09/22/20 16:37 Lab Results 09/22/20 09/22/20 09/22/20 Range/Units 16:37 16:37 16:37 WBC 9.5 (3.8-10.6) k/uL RBC 4.34 (3.80-5.40) m/uL Hgb 13.4 (11.4-16.0) gm/dL Hct 39.5 (34.0-46.0) % MCV 90.9 (80.0-100.0) fL MCH 30.8 (25.0-35.0) pg MCHC 33.9 (31.0-37.0) g/dL RDW 13.7 (11.5-15.5) % Plt Count 213 (150-450) k/uL MPV 9.1 Neutrophils % 68 % Lymphocytes % 19 % Monocytes % 6 % Eosinophils % 1 % Basophils % 1 % Neutrophils # 6.5 (1.3-7.7) k/uL Lymphocytes # 1.8 (1.0-4.8) k/uL Monocytes # 0.6 (0-1.0) k/uL Eosinophils # 0.1 (0-0.7) k/uL Basophils # 0.1 (0-0.2) k/uL Sodium 139 (137-145) mmol/L Potassium 3.8 (3.5-5.1) mmol/L Chloride 110 H (98-107) mmol/L Carbon Dioxide 19 L (22-30) mmol/L Anion Gap 10 mmol/L BUN 14 (7-17) mg/dL Creatinine 0.75 (0.52-1.04) mg/dL Est GFR (CKD-EPI)AfAm >90 (>60 ml/min/1.73 sqM) Est GFR (CKD-EPI)NonAf >90 (>60 ml/min/1.73 sqM) Glucose 93 (74-99) mg/dL Calcium 10.0 (8.4-10.2) mg/dL Total Bilirubin 0.4 (0.2-1.3) mg/dL AST 22 (14-36) U/L ALT 13 (4-34) U/L Alkaline Phosphatase 57 (38-126) U/L Total Protein 6.5 (6.3-8.2) g/dL Albumin 4.2 (3.5-5.0) g/dL Urine Color Yellow Urine Appearance Cloudy H (Clear) Urine pH 7.5 (5.0-8.0) Ur Specific [place] 1.014 (1.001-1.035) Urine Protein 1+ H (Negative) Urine Glucose (UA) Negative (Negative) Urine Ketones Negative (Negative) Urine Blood Moderate H (Negative) Urine Nitrite Negative (Negative) Urine Bilirubin Negative (Negative) Urine Urobilinogen <2.0 (<2.0) mg/dL Ur Leukocyte Esterase Large H (Negative) Urine RBC 120 H (0-5) /hpf Urine WBC >182 H (0-5) /hpf Urine WBC Clumps Moderate H (None) /hpf Ur Squamous Epith Cells 1 (0-4) /hpf Urine Mucus Rare H (None) /hpf Urine Yeast (Budding) Many H (None) /hpf Urine HCG, Qual (Not Detectd) 09/22/20 Range/Units 16:37 WBC (3.8-10.6) k/uL RBC (3.80-5.40) m/uL Hgb (11.4-16.0) gm/dL Hct (34.0-46.0) % MCV (80.0-100.0) fL MCH (25.0-35.0) pg MCHC (31.0-37.0) g/dL RDW (11.5-15.5) % Plt Count (150-450) k/uL MPV Neutrophils % % Lymphocytes % % Monocytes % % Eosinophils % % Basophils % % Neutrophils # (1.3-7.7) k/uL Lymphocytes # (1.0-4.8) k/uL Monocytes # (0-1.0) k/uL Eosinophils # (0-0.7) k/uL Basophils # (0-0.2) k/uL Sodium (137-145) mmol/L Potassium (3.5-5.1) mmol/L Chloride (98-107) mmol/L Carbon Dioxide (22-30) mmol/L Anion Gap mmol/L BUN (7-17) mg/dL Creatinine (0.52-1.04) mg/dL Est GFR (CKD-EPI)AfAm (>60 ml/min/1.73 sqM) Est GFR (CKD-EPI)NonAf (>60 ml/min/1.73 sqM) Glucose (74-99) mg/dL Calcium (8.4-10.2) mg/dL Total Bilirubin (0.2-1.3) mg/dL AST (14-36) U/L ALT (4-34) U/L Alkaline Phosphatase (38-126) U/L Total Protein (6.3-8.2) g/dL Albumin (3.5-5.0) g/dL Urine Color Urine Appearance (Clear) Urine pH (5.0-8.0) Ur Specific [place] (1.001-1.035) Urine Protein (Negative) Urine Glucose (UA) (Negative) Urine Ketones (Negative) Urine Blood (Negative) Urine Nitrite (Negative) Urine Bilirubin (Negative) Urine Urobilinogen (<2.0) mg/dL Ur Leukocyte Esterase (Negative) Urine RBC (0-5) /hpf Urine WBC (0-5) /hpf Urine WBC Clumps (None) /hpf Ur Squamous Epith Cells (0-4) /hpf Urine Mucus (None) /hpf Urine Yeast (Budding) (None) /hpf Urine HCG, Qual Not Detected (Not Detectd) Disposition Clinical Impression: UTI (urinary tract infection) Disposition: HOME SELF-CARE Condition: Stable Instructions (If sedation given, give patient instructions): Urinary Tract Infection in Women (ED) Additional Instructions: Please return to the Emergency Department if symptoms worsen or any other concerns. Take antibiotics as prescribed starting tomorrow morning. Use Tylenol or Motrin for any discomfort. Prescriptions: Cephalexin [Keflex] 500 mg PO BID 5 Days #10 cap Is patient prescribed a controlled substance at d/c from ED?: No Referrals: Bill Ashley DO [Primary Care Provider] - 1-2 days Time of Disposition: 17:37
[2020-09-22 16:57] LABS: Appearance,Urine Cloudy (Clear); Bilirubin,Urine Negative (Negative); Blood,Urine Moderate (Negative); Budding Yeast,Urine Many /hpf; Color,Urine Yellow; Glucose,Urine (UA) Negative (Negative); Ketones,Urine Negative (Negative); Leukocyte Esterase,Urine Large (Negative); Mucus,Urine Rare /hpf; Nitrite,Urine Negative (Negative); PH, Urine 7.5 (5.0-8.0); Protein,Urine 1+ (Negative); RBC,Urine 120 /hpf (0-5); Specific Gravity,Urine 1.014 (1.001-1.035); Squamous Epithelial Cell,Urine 1 /hpf (0-4); Urobilinogen,Urine <2.0 mg/dL (<2.0); WBC,Urine >182 /hpf (0-5)
--- NOTE | 2020-09-22 17:03 | XR ---
EXAMINATION TYPE: XR KUB DATE OF EXAM: 09/22/2020 COMPARISON: 08/20/2017 HISTORY: Flank pain TECHNIQUE: 2 views upright FINDINGS: Bowel gas pattern is normal. There is no sign of intestinal obstruction or pneumoperitoneum . Fecal pattern is normal. Lung bases are clear. There is slight lumbar dextroscoliosis. There are no pathologic calcifications. IMPRESSION: Nonacute abdomen. No change.
[2020-09-22] MEDS ORDERED: cefTRIAXone IN SWFI 1,000 MG/10 ML SYRINGE IVP STA (17:34)
[2020-09-22 17:53] VITALS: BP 120/74; PULSE 79; RESP 18
== END 2020-09-22 17:52 | disposition home or self-care (01) ==
LOC: EC 16:12
DX: N39.0 Urinary tract infection, site not specified (principal); J45.909 Unspecified asthma, uncomplicated; E07.9 Disorder of thyroid, unspecified; Z87.891 Personal history of nicotine dependence; Z88.0 Allergy status to penicillin; Z91.040 Latex allergy status; Z91.011 Allergy to milk products; Z79.890 Hormone replacement therapy
CPT/HCPCS: 36415; 80053; 85025; 81001; 81025; 87086; 74018; 99284; 96374; 96375; J0696; J1885

== ENCOUNTER 2021-04-13 23:46 | Emergency (ER) | payer OTHER ==
[2021-04-14 00:03] VITALS: TEMP 98
[2021-04-14] MEDS ORDERED: IBUPROFEN 600 MG TAB PO STA (00:17)
--- NOTE | 2021-04-14 00:20 | ED ---
General Adult HPI - General Chief complaint: Chest Pain Stated complaint: rib pain Time Seen by Provider: 04/14/21 00:07 Source: patient, RN notes reviewed Mode of arrival: ambulatory Limitations: no limitations - History of Present Illness Initial comments: 20-year-old female presents to the emergency department for evaluation of right- sided rib pain. Patient states she has been coughing for the past 2 hours and feels as if perhaps she has dislocated a rib on the right side. States she has been seeing a chiropractor for the past 2 weeks due to ongoing right-sided rib soreness. Patient states she has a history of asthma and often feels short of breath, though is not experiencing any difficulty breathing at this time. Did not take anything for pain prior to arrival. Patient denies fever, chills, headache, dizziness, abdominal pain, nausea, vomiting, diarrhea, or dysuria. - Related Data Home Medications Medication Instructions Recorded Confirmed Albuterol Inhaler [Ventolin Hfa 1 puff INHALATION RT-Q4H PRN 07/19/20 07/19/20 Inhaler] Fluticasone Nasal [place] [Flonase 1 spr EA NOSTRIL DAILY 07/19/20 07/19/20 Nasal [place]] Levothyroxine Sodium [Synthroid] 25 mcg PO DAILY 07/19/20 07/19/20 Medroxyprogesterone Acetate 150 mg IM Q90D 07/19/20 07/19/20 [Depo-Provera] busPIRone HCl [Buspar] 5 mg PO BID 07/19/20 07/19/20 Previous Rx's Medication Instructions Recorded Cephalexin [Keflex] 500 mg PO Q6H #28 cap 08/15/20 Famotidine [Pepcid] 20 mg PO DAILY 28 Days #28 tablet 08/20/20 Fluticasone Nasal [place] [Flonase 2 spr EA NOSTRIL DAILY #1 bottle 08/20/20 Nasal [place]] Loratadine-Pseudoeph 10-240 mg 1 tab PO DAILY 30 Days #30 tab 08/20/20 [Claritin-D 24 Hour] Cephalexin [Keflex] 500 mg PO BID 5 Days #10 cap 09/22/20 Ibuprofen [Motrin] 600 mg PO Q8HR PRN #20 tab 04/14/21 Allergies Allergy/AdvReac Type Severity Reaction Status Date / Time milk Allergy Severe Rash/Hives Verified 04/14/21 00:03 amoxicillin [Amoxicillin] Allergy Anaphylaxis Verified 04/14/21 00:03 latex Allergy Rash/Hives Verified 04/14/21 00:03 Milk Containing Products Allergy Rash/Hives Verified 04/14/21 00:03 [Dairy] Review of Systems ROS Statement: Those systems with pertinent positive or pertinent negative responses have been documented in the HPI. ROS Other: All systems not noted in ROS Statement are negative. 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 anemia. borderline personality disorder, agoraphobia, PPD History of Any Multi-Drug Resistant Organisms: None Reported Past Surgical History: Ear Surgery Additional Past Surgical History / Comment(s): PE tubes, Past Anesthesia/Blood Transfusion Reactions: No Reported Reaction Past Psychological History: ADD/ADHD, Anxiety, Bipolar, Depression, PTSD Smoking Status: Former smoker Past Alcohol Use History: Occasional Past Drug Use History: Marijuana - Past Family History Mother Family Medical History: No Reported History General Exam Limitations: no limitations (Well-developed, well-nourished female in no acute distress. Initial temperature 98.0, pulse 58, respirations 18, blood pressure 101/58, pulse ox 99% on room air.) General appearance: alert, in no apparent distress ENT exam: Present: normal oropharynx, mucous membranes moist Neck exam: Present: normal inspection, full ROM. Absent: tenderness, meningismus, lymphadenopathy Respiratory exam: Present: normal lung sounds bilaterally, chest wall tenderness (Right anterior chest wall tenderness upon palpation of the fifth and sixth ribs). Absent: respiratory distress, wheezes, rales, rhonchi, stridor Cardiovascular Exam: Present: normal rhythm, bradycardia, normal heart sounds GI/Abdominal exam: Present: soft, normal bowel sounds. Absent: distended, tenderness, guarding, rebound, rigid Back exam: Absent: CVA tenderness (R), CVA tenderness (L) Neurological exam: Present: alert, oriented X3, CN II-XII intact Psychiatric exam: Present: normal affect, normal mood Skin exam: Present: warm, dry, intact, normal color. Absent: rash Course Vital Signs 04/14/21 04/14/21 00:01 02:28 Temperature 98.0 F Pulse Rate 58 L 61 Respiratory 18 17 Rate Blood Pressure 101/58 100/60 O2 Sat by Pulse 99 98 Oximetry Medical Decision Making - Medical Decision Making 20-year-old female with a past medical history of asthma, seizure disorder, and mental illness presents to the emergency Department with concerns of possible right anterior rib displacement. Patient states she has been told that she has hyper mobility and is prone to dislocations. Upon exam, patient is nontoxic, well-appearing and in no acute distress. She is not experiencing any difficulty breathing or shortness of breath. She does have a dry cough. There is no subcutaneous emphysema or step-off on palpation of anterior ribs. She does have mild tenderness along the fifth and sixth ribs. Patient is not experiencing any chest pain symptoms concerning for ACS. X-ray was negative. Patient was given Motrin for pain with some improvement. She will be discharged home to follow up with her PCP for a recheck. Return parameters were discussed in detail. Patient verbalizes understanding and agrees with this plan. Attending: Dr. Devine. - Radiology Data Radiology results: report reviewed, image reviewed X-ray of the right ribs with PA chest was obtained. Report was reviewed in its entirety. Impression per Dr. Be is negative right rib exam. Normal chest. No change. Disposition Clinical Impression: Costochondritis, acute Disposition: HOME SELF-CARE Condition: Stable Instructions (If sedation given, give patient instructions): Costochondritis (ED) Additional Instructions: May take Tylenol or Motrin as needed for further discomfort. Consider soaking in Epsom salt bath twice daily. Follow-up with your PCP or chiropractor this week. Return to the emergency department with any new, worsening, or concerning symptoms. Prescriptions: Ibuprofen [Motrin] 600 mg PO Q8HR PRN #20 tab PRN Reason: Pain Is patient prescribed a controlled substance at d/c from ED?: No Referrals: Bill Ashley DO [Primary Care Provider] - 1-2 days Time of Disposition: 01:41
--- NOTE | 2021-04-14 00:57 | XR ---
EXAMINATION TYPE: XR ribs RT w pa chest xray DATE OF EXAM: 04/14/2021 COMPARISON: Chest x-ray 08/15/2020 HISTORY: Rib pain TECHNIQUE: 5 views FINDINGS: Heart and mediastinum are normal. Lungs are clear. Diaphragm is normal. Bony thorax appears normal. The right ribs appear intact. No pleural effusion or pneumothorax. IMPRESSION: Negative right rib exam. Normal chest. No change.
[2021-04-14 02:29] VITALS: BP 100/60; PULSE 61; RESP 17
== END 2021-04-14 02:41 | disposition home or self-care (01) ==
LOC: EC 23:46
DX: M94.0 Chondrocostal junction syndrome [Tietze] (principal); J45.909 Unspecified asthma, uncomplicated; Z87.891 Personal history of nicotine dependence; E07.9 Disorder of thyroid, unspecified; Z79.890 Hormone replacement therapy; Z91.011 Allergy to milk products; Z88.0 Allergy status to penicillin; Z91.040 Latex allergy status
CPT/HCPCS: 99284

== ENCOUNTER 2021-11-09 06:37 | Emergency (ER) | payer BC, OTHER ==
[2021-11-09 06:47] VITALS: TEMP 98.1
[2021-11-09] MEDS ORDERED: KETOROLAC 15 MG/ML 1 ML VIAL IVP STA (06:51)
[2021-11-09] MEDS ORDERED: SODIUM CHLORIDE 0.9% 1,000 ML IV STA (06:51)
[2021-11-09] MEDS ORDERED: MORPHINE SULFATE 2 MG/ML SYRINGE IVP STA (06:55)
[2021-11-09] MEDS ORDERED: ONDANSETRON 4 MG/2 ML VIAL IVP STA (06:56)
--- NOTE | 2021-11-09 06:59 | ED ---
Abdominal Pain HPI - General Chief Complaint: Abdominal Pain Stated Complaint: Abd Pain Time Seen by Provider: 11/09/21 06:40 Source: patient, RN notes reviewed Mode of arrival: wheelchair Limitations: no limitations - History of Present Illness Initial Comments: This is a 21-year-old female who presents to the emergency department for bilateral flank pain. States that the symptoms started last night. Patient is calling this "kidney pain". Denies any urinary symptoms. She has associated nausea and vomiting due to the pain. The pain does wrap around into her abdomen. Denies any history of kidney stones or ever having similar symptoms in the past. She does note that yesterday she worked out for the first time in 2 years. Denies any fevers, chills, sore throat, cough, dyspnea, chest pain, palpitations, diarrhea, or headaches. MD Complaint: abdominal pain, flank pain Onset/Timin -: days(s) Location: L flank, R flank Associated Symptoms: nausea, vomiting - Related Data Home Medications Medication Instructions Recorded Confirmed Albuterol Inhaler [Ventolin Hfa 1 puff INHALATION RT-Q4H PRN 07/19/20 07/19/20 Inhaler] Fluticasone Nasal [place] [Flonase 1 spr EA NOSTRIL DAILY 07/19/20 07/19/20 Nasal [place]] Levothyroxine Sodium [Synthroid] 25 mcg PO DAILY 07/19/20 07/19/20 Medroxyprogesterone Acetate 150 mg IM Q90D 07/19/20 07/19/20 [Depo-Provera] busPIRone HCl [Buspar] 5 mg PO BID 07/19/20 07/19/20 Previous Rx's Medication Instructions Recorded Cephalexin [Keflex] 500 mg PO Q6H #28 cap 08/15/20 Famotidine [Pepcid] 20 mg PO DAILY 28 Days #28 tablet 08/20/20 Fluticasone Nasal [place] [Flonase 2 spr EA NOSTRIL DAILY #1 bottle 08/20/20 Nasal [place]] Loratadine-Pseudoeph 10-240 mg 1 tab PO DAILY 30 Days #30 tab 08/20/20 [Claritin-D 24 Hour] Cephalexin [Keflex] 500 mg PO BID 5 Days #10 cap 09/22/20 Ibuprofen [Motrin] 600 mg PO Q8HR PRN #20 tab 04/14/21 Ibuprofen [Motrin] 600 mg PO Q8HR PRN #20 tab 09/27/21 Cyclobenzaprine [Flexeril] 5 mg PO TID PRN #10 tablet 11/09/21 Ketorolac [Toradol] 10 mg PO Q6HR PRN #12 tab 11/09/21 Ondansetron Odt [Zofran Odt] 4 mg PO Q8HR PRN #10 tab 11/09/21 Sulfamethox-Tmp 800-160Mg [Bactrim 1 tab PO Q12HR 5 Days #10 tab 11/09/21 DS 800-160 mg] Allergies Allergy/AdvReac Type Severity Reaction Status Date / Time milk Allergy Severe Rash/Hives Verified 11/09/21 06:43 amoxicillin [Amoxicillin] Allergy Anaphylaxis Verified 11/09/21 06:43 latex Allergy Rash/Hives Verified 11/09/21 06:43 Milk Containing Products Allergy Rash/Hives Verified 11/09/21 06:43 [Dairy] morphine Allergy Rash/Hives Verified 11/09/21 08:02 Review of Systems ROS Statement: Those systems with pertinent positive or pertinent negative responses have been documented in the HPI. ROS Other: All systems not noted in ROS Statement are negative. 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 anemia. borderline personality disorder, agoraphobia, PPD History of Any Multi-Drug Resistant Organisms: None Reported Past Surgical History: Ear Surgery Additional Past Surgical History / Comment(s): PE tubes, Past Anesthesia/Blood Transfusion Reactions: No Reported Reaction Past Psychological History: ADD/ADHD, Anxiety, Bipolar, Depression, PTSD Smoking Status: Current every day smoker Past Alcohol Use History: Occasional Past Drug Use History: Marijuana - Past Family History Mother Family Medical History: No Reported History General Exam Limitations: no limitations General appearance: alert, in distress Head exam: Present: atraumatic, normocephalic, normal inspection Respiratory exam: Present: normal lung sounds bilaterally. Absent: respiratory distress, wheezes, rales, rhonchi, stridor Cardiovascular Exam: Present: normal rhythm, normal heart sounds. Absent: tachycardia, systolic murmur, diastolic murmur, rubs, gallop, clicks GI/Abdominal exam: Present: soft, tenderness (diffuse), normal bowel sounds. Absent: distended, guarding, rebound, rigid Back exam: Present: normal inspection. Absent: tenderness, CVA tenderness (R), CVA tenderness (L) Neurological exam: Present: alert, oriented X3, CN II-XII intact Psychiatric exam: Present: normal affect, normal mood Skin exam: Present: warm, dry, intact, normal color. Absent: rash Course Vital Signs 11/09/21 11/09/21 11/09/21 06:43 08:46 10:33 Temperature 98.1 F Pulse Rate 109 H 74 82 Respiratory 22 18 18 Rate Blood Pressure 117/70 120/81 114/81 O2 Sat by Pulse 98 96 96 Oximetry Medical Decision Making - Medical Decision Making This is a 21-year-old female who presents to the emergency department for bilateral flank pain. Patient was given IV fluids, Zofran, Toradol, and morphine. Following morphine administration, she started to develop a minor rash to the left arm. She was subsequently given a dose of Benadryl and Morphine was added to her allergy list. Patient's lab work was nonactionable. She had significant relief after medication administration and was found to be resting comfortably. Urinalysis is positive for a UTI. Symptoms may be related to both a urinary tract infection and musculoskeletal strain due to the patient exercising for the first time in 2 years. Prescription for Toradol, Flexeril, Bactrim, and Zofran provided. She is instructed to avoid taking the Toradol with ibuprofen or other anti-inflammatories. Also instructed her to take the first dose of Flexeril at night until she knows how it effects her, as it may be sedating. She is also instructed to avoid driving or operating machinery when taking this. The Zofran can be taken up to 8 hours for additional nausea and vomiting and the Bactrim will be taken twice daily for 5 days. Advised she avoid exercising for the meantime until symptoms improve, and if she resumes exercising, she should ease into this slower. Return precautions reviewed in depth, the patient is instructed to return to the emergency department with any new, worsening, or concerning symptoms. Patient verbalized understanding. This case was discussed in detail with the attending ED physician. Presentation, findings, and treatment plan discussed in detail as well. - Lab Data Result diagrams: 11/09/21 07:37 11/09/21 07:37 Lab Results 11/09/21 11/09/21 11/09/21 Range/Units 07:37 07:37 08:15 WBC 8.7 (3.8-10.6) k/uL RBC 4.29 (3.80-5.40) m/uL Hgb 12.9 (11.4-16.0) gm/dL Hct 38.6 (34.0-46.0) % MCV 90.1 (80.0-100.0) fL MCH 30.0 (25.0-35.0) pg MCHC 33.3 (31.0-37.0) g/dL RDW 12.5 (11.5-15.5) % Plt Count 175 (150-450) k/uL MPV 9.7 Neutrophils % 81 % Lymphocytes % 11 % Monocytes % 6 % Eosinophils % 1 % Basophils % 0 % Neutrophils # 7.0 (1.3-7.7) k/uL Lymphocytes # 1.0 (1.0-4.8) k/uL Monocytes # 0.5 (0-1.0) k/uL Eosinophils # 0.1 (0-0.7) k/uL Basophils # 0.0 (0-0.2) k/uL Sodium 137 (137-145) mmol/L Potassium 3.9 (3.5-5.1) mmol/L Chloride 106 (98-107) mmol/L Carbon Dioxide 21 L (22-30) mmol/L Anion Gap 10 mmol/L BUN 15 (7-17) mg/dL Creatinine 0.80 (0.52-1.04) mg/dL Est GFR (CKD-EPI)AfAm >90 (>60 ml/min/1.73 sqM) Est GFR (CKD-EPI)NonAf >90 (>60 ml/min/1.73 sqM) Glucose 89 (74-99) mg/dL Calcium 9.3 (8.4-10.2) mg/dL Total Bilirubin 0.6 (0.2-1.3) mg/dL AST 20 (14-36) U/L ALT 13 (4-34) U/L Alkaline Phosphatase 63 (38-126) U/L Total Protein 6.9 (6.3-8.2) g/dL Albumin 4.6 (3.5-5.0) g/dL Amylase 80 (30-110) U/L Lipase 60 (23-300) U/L Urine Color Light Yellow Urine Appearance Cloudy H (Clear) Urine pH 7.0 (5.0-8.0) Ur Specific [place] 1.008 (1.001-1.035) Urine Protein 1+ H (Negative) Urine Glucose (UA) Negative (Negative) Urine Ketones Negative (Negative) Urine Blood Moderate H (Negative) Urine Nitrite Negative (Negative) Urine Bilirubin Negative (Negative) Urine Urobilinogen <2.0 (<2.0) mg/dL Ur Leukocyte Esterase Large H (Negative) Urine RBC 36 H (0-5) /hpf Urine WBC >182 H (0-5) /hpf Urine WBC Clumps Few H (None) /hpf Urine Bacteria Rare H (None) /hpf Urine Mucus Rare H (None) /hpf Urine HCG, Qual (Not Detectd) 11/09/21 Range/Units 08:15 WBC (3.8-10.6) k/uL RBC (3.80-5.40) m/uL Hgb (11.4-16.0) gm/dL Hct (34.0-46.0) % MCV (80.0-100.0) fL MCH (25.0-35.0) pg MCHC (31.0-37.0) g/dL RDW (11.5-15.5) % Plt Count (150-450) k/uL MPV Neutrophils % % Lymphocytes % % Monocytes % % Eosinophils % % Basophils % % Neutrophils # (1.3-7.7) k/uL Lymphocytes # (1.0-4.8) k/uL Monocytes # (0-1.0) k/uL Eosinophils # (0-0.7) k/uL Basophils # (0-0.2) k/uL Sodium (137-145) mmol/L Potassium (3.5-5.1) mmol/L Chloride (98-107) mmol/L Carbon Dioxide (22-30) mmol/L Anion Gap mmol/L BUN (7-17) mg/dL Creatinine (0.52-1.04) mg/dL Est GFR (CKD-EPI)AfAm (>60 ml/min/1.73 sqM) Est GFR (CKD-EPI)NonAf (>60 ml/min/1.73 sqM) Glucose (74-99) mg/dL Calcium (8.4-10.2) mg/dL Total Bilirubin (0.2-1.3) mg/dL AST (14-36) U/L ALT (4-34) U/L Alkaline Phosphatase (38-126) U/L Total Protein (6.3-8.2) g/dL Albumin (3.5-5.0) g/dL Amylase (30-110) U/L Lipase (23-300) U/L Urine Color Urine Appearance (Clear) Urine pH (5.0-8.0) Ur Specific [place] (1.001-1.035) Urine Protein (Negative) Urine Glucose (UA) (Negative) Urine Ketones (Negative) Urine Blood (Negative) Urine Nitrite (Negative) Urine Bilirubin (Negative) Urine Urobilinogen (<2.0) mg/dL Ur Leukocyte Esterase (Negative) Urine RBC (0-5) /hpf Urine WBC (0-5) /hpf Urine WBC Clumps (None) /hpf Urine Bacteria (None) /hpf Urine Mucus (None) /hpf Urine HCG, Qual Not Detected (Not Detectd) - Radiology Data Radiology results: report reviewed, image reviewed Disposition Clinical Impression: Mechanical back pain, UTI (urinary tract infection) Disposition: HOME SELF-CARE Instructions (If sedation given, give patient instructions): Urinary Tract Infection in Women (ED), Low Back Strain (ED), Flank Pain (ED), Back Pain (ED) Additional Instructions: Return to the emergency department with any new, worsening, or concerning symptoms. Take the antibiotic (Bactrim) as prescribed for 5 days. Take the Toradol up to every 6 hours as needed for pain relief. Do not take other anti- inflammatories such as ibuprofen with this. Also be sure to take this with Tylenol. The Flexeril can be taken 3-4 times daily for pain, tightness, and spasms. Make sure to take the first dose at night until you know how it effects you, as it may be sedating. You should also avoid driving or operating machinery when taking this. Zofran can be taken up to every 8 hours for any additional nausea and vomiting. Apply ice to the back for 15-20 minutes every 2-3 hours and avoid additional exercise until you feel like you have recovered. If you return to exercise, make sure that you start out very light and increase in intensity as you progress. Follow up with your primary care provider in 1-2 days. Prescriptions: Sulfamethox-Tmp 800-160Mg [Bactrim DS 800-160 mg] 1 tab PO Q12HR 5 Days #10 tab Cyclobenzaprine [Flexeril] 5 mg PO TID PRN #10 tablet PRN Reason: Pain Ketorolac [Toradol] 10 mg PO Q6HR PRN #12 tab PRN Reason: Pain Ondansetron Odt [Zofran Odt] 4 mg PO Q8HR PRN #10 tab PRN Reason: Nausea And Vomiting Is patient prescribed a controlled substance at d/c from ED?: No Referrals: Bill Ashley DO [Primary Care Provider] - 1-2 days
[2021-11-09 07:56] LABS: Basophils % (A) 0 %; Eosinophils # (A) 0.1 k/uL (0-0.7); Eosinophils % (A) 1 %; HCT 38.6 % (34.0-46.0); HGB 12.9 gm/dL (11.4-16.0); Lymphocytes % (A) 11 %; MCHC 33.3 g/dL (31.0-37.0); MCV 90.1 fL (80.0-100.0); Mean Platelet Volume 9.7; Monocytes # (A) 0.5 k/uL (0-1.0); Monocytes % (A) 6 %; Neutrophils % (A) 81 %; Platelet Count 175 k/uL (150-450); RBC 4.29 m/uL (3.80-5.40); RDW 12.5 % (11.5-15.5); WBC 8.7 k/uL (3.8-10.6)
[2021-11-09] MEDS ORDERED: diphenhydrAMINE 50 MG/ML 1 ML VIAL IVP STA (07:57)
[2021-11-09 08:06] LABS: ALT 13 U/L (4-34); AST 20 U/L (14-36); African American GFR (CKD) >90 (>60 ml/min/1.73 sqM); Albumin 4.6 g/dL (3.5-5.0); Alkaline Phosphatase 63 U/L (38-126); Amylase 80 U/L (30-110); Anion Gap 10 mmol/L; Blood Urea Nitrogen 15 mg/dL (7-17); Calcium 9.3 mg/dL (8.4-10.2); Carbon Dioxide 21 mmol/L (22-30); Chloride 106 mmol/L (98-107); Glucose 89 mg/dL (74-99); Lipase 60 U/L (23-300); Non-African American GFR(CKD) >90 (>60 ml/min/1.73 sqM); Potassium 3.9 mmol/L (3.5-5.1); Sodium 137 mmol/L (137-145); Total Bilirubin 0.6 mg/dL (0.2-1.3); Total Protein 6.9 g/dL (6.3-8.2)
--- NOTE | 2021-11-09 09:13 | XR ---
EXAMINATION TYPE: XR KUB DATE OF EXAM: 11/09/2021 8:46 AM INDICATION: Patient age:Female; 21 years old; Reason for study: abdominal pain; COMPARISON: None. TECHNIQUE: One radiographic view of the abdomen was obtained. FINDINGS: The bowel gas pattern is nonspecific without dilated loops of small or large bowel. There i s no evidence for organomegaly or pneumoperitoneum. The osseous structures are intact. No abnormal calcifications are present. Fecal material and gas are demonstrated throughout the colon and rectum. IMPRESSION: Nonspecific bowel gas pattern without radiographic evidence for acute process.
[2021-11-09] MEDS ORDERED: IBUPROFEN 600 MG STARTER PACK 4 TAB BTL PO STA (09:20)
[2021-11-09] MEDS ORDERED: ONDANSETRON 4 MG ODT STARTER PACK 2 TAB BTL PO STA (09:20)
[2021-11-09] MEDS ORDERED: CYCLOBENZAPRINE 10MG STARTER 3 TAB BTL PO STA (09:20)
[2021-11-09 09:54] LABS: Appearance,Urine Cloudy (Clear); Bacteria,Urine Rare /hpf; Bilirubin,Urine Negative (Negative); Blood,Urine Moderate (Negative); Color,Urine Light Yellow; Glucose,Urine (UA) Negative (Negative); Ketones,Urine Negative (Negative); Leukocyte Esterase,Urine Large (Negative); Mucus,Urine Rare /hpf; Nitrite,Urine Negative (Negative); Protein,Urine 1+ (Negative); RBC,Urine 36 /hpf (0-5); Specific Gravity,Urine 1.008 (1.001-1.035); Urobilinogen,Urine <2.0 mg/dL (<2.0); WBC,Urine >182 /hpf (0-5)
[2021-11-09 10:33] VITALS: RESP 18
[2021-11-09 10:34] VITALS: BP 114/81; PULSE 82
== END 2021-11-09 10:36 | disposition home or self-care (01) ==
LOC: EC 06:37
DX: N39.0 Urinary tract infection, site not specified (principal); M54.9 Dorsalgia, unspecified; J45.909 Unspecified asthma, uncomplicated; E07.9 Disorder of thyroid, unspecified; Z86.69 Personal history of other diseases of the nervous system and sense organs; F17.200 Nicotine dependence, unspecified, uncomplicated; Z79.51 Long term (current) use of inhaled steroids; Z79.890 Hormone replacement therapy; Z91.011 Allergy to milk products; Z88.0 Allergy status to penicillin; Z91.040 Latex allergy status; Z88.6 Allergy status to analgesic agent
CPT/HCPCS: 36415; 80053; 82150; 83690; 85025; 81001; 81025; 87086; 74018; 99284; 96374; 96375; 96361; J1200; J2405; J2270; J1885; S0119

== ENCOUNTER 2022-08-23 09:10 | Emergency (ER) | payer BC, OTHER ==
[2022-08-23 09:18] VITALS: TEMP 98
[2022-08-23] MEDS ORDERED: ONDANSETRON 4 MG/2 ML VIAL IVP STA (09:40)
[2022-08-23] MEDS ORDERED: KETOROLAC 15 MG/ML 1 ML VIAL IVP STA (09:40)
[2022-08-23] MEDS ORDERED: SODIUM CHLORIDE 0.9% 1,000 ML IV STA (09:40)
--- NOTE | 2022-08-23 09:45 | ED ---
General Adult HPI - General Chief complaint: Headache Stated complaint: Migraine Time Seen by Provider: 08/23/22 09:30 Source: patient, RN notes reviewed, old records reviewed Mode of arrival: ambulatory Limitations: no limitations - History of Present Illness Initial comments: Pleasant, nontoxic appearing 22-year-old female presents with left-sided and posterior headache that started this morning upon awakening. Patient states that she expected a headache this morning as she was drinking tequila late last night. She has a history of migraine headaches and last seen [place] [facility] in 2019. Has not had any problems since so has not returned. She states normally when she gets her headaches she takes Motrin 800 with relief however she no longer has this medication. She did take Excedrin Migraine with some relief this morning. She feels as though she is dehydrated. This headache is similar to previous headaches. She denies any fevers. No trauma. -: hour(s) Location: head (left and posterior) Severity scale (1-10): 7 Quality: aching Consistency: constant Improves with: other (Excedrin Migraine) Worsens with: none Associated Symptoms: nausea/vomiting (Mild nausea no vomiting) Treatments Prior to Arrival: other (Excedrin Migraine) - Related Data Home Medications Medication Instructions Recorded Confirmed Albuterol Inhaler [Ventolin Hfa 1 puff INHALATION RT-Q4H PRN 07/19/20 07/19/20 Inhaler] Fluticasone Nasal [place] [Flonase 1 spr EA NOSTRIL DAILY 07/19/20 07/19/20 Nasal [place]] Levothyroxine Sodium [Synthroid] 25 mcg PO DAILY 07/19/20 07/19/20 Medroxyprogesterone Acetate 150 mg IM Q90D 07/19/20 07/19/20 [Depo-Provera] busPIRone HCl [Buspar] 5 mg PO BID 07/19/20 07/19/20 Previous Rx's Medication Instructions Recorded Cephalexin [Keflex] 500 mg PO Q6H #28 cap 08/15/20 Famotidine [Pepcid] 20 mg PO DAILY 28 Days #28 tablet 08/20/20 Fluticasone Nasal [place] [Flonase 2 spr EA NOSTRIL DAILY #1 bottle 08/20/20 Nasal [place]] Loratadine-Pseudoeph 10-240 mg 1 tab PO DAILY 30 Days #30 tab 08/20/20 [Claritin-D 24 Hour] Cephalexin [Keflex] 500 mg PO BID 5 Days #10 cap 09/22/20 Ibuprofen [Motrin] 600 mg PO Q8HR PRN #20 tab 04/14/21 Ibuprofen [Motrin] 600 mg PO Q8HR PRN #20 tab 09/27/21 Cyclobenzaprine [Flexeril] 5 mg PO TID PRN #10 tablet 11/09/21 Ketorolac [Toradol] 10 mg PO Q6HR PRN #12 tab 11/09/21 Ondansetron Odt [Zofran Odt] 4 mg PO Q8HR PRN #10 tab 11/09/21 Sulfamethox-Tmp 800-160Mg [Bactrim 1 tab PO Q12HR 5 Days #10 tab 11/09/21 DS 800-160 mg] Allergies Allergy/AdvReac Type Severity Reaction Status Date / Time milk Allergy Severe Rash/Hives Verified 08/23/22 09:18 amoxicillin [Amoxicillin] Allergy Anaphylaxis Verified 08/23/22 09:18 gluten Allergy Diarrhea Verified 08/23/22 09:18 latex Allergy Rash/Hives Verified 08/23/22 09:18 Milk Containing Products Allergy Rash/Hives Verified 08/23/22 09:18 [Dairy] morphine Allergy Rash/Hives Verified 08/23/22 09:18 Review of Systems ROS Statement: Those systems with pertinent positive or pertinent negative responses have been documented in the HPI. ROS Other: All systems not noted in ROS Statement are negative. 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 anemia. borderline personality disorder, agoraphobia, PPD, migraines History of Any Multi-Drug Resistant Organisms: None Reported Past Surgical History: Ear Surgery Additional Past Surgical History / Comment(s): PE tubes, Past Anesthesia/Blood Transfusion Reactions: No Reported Reaction Past Psychological History: ADD/ADHD, Anxiety, Bipolar, Depression, PTSD Smoking Status: Current every day smoker, Vaper Past Alcohol Use History: Occasional Past Drug Use History: Marijuana - Past Family History Mother Family Medical History: No Reported History General Exam Limitations: no limitations General appearance: alert, in no apparent distress Head exam: Present: atraumatic, normocephalic Eye exam: Present: normal appearance, EOMI. Absent: scleral icterus, conjunctival injection, nystagmus, periorbital swelling ENT exam: Present: normal exam, normal oropharynx, mucous membranes moist Neck exam: Present: full ROM. Absent: tenderness, meningismus, lymphadenopathy, thyromegaly Respiratory exam: Absent: respiratory distress, accessory muscle use Cardiovascular Exam: Present: regular rate GI/Abdominal exam: Present: soft Extremities exam: Present: full ROM, normal capillary refill. Absent: tenderness, pedal edema Neurological exam: Present: alert, oriented X3, CN II-XII intact Expanded Patient oriented to: Present: person, place, time Speech: Present: fluid speech Cranial nerves: EOM's Intact: Normal, Gag Reflex: Normal, Tongue Deviation: Normal Motor strength exam: RUE: 5, LUE: 5, RLE: 5, LLE: 5 Eye Response: (4) open spontaneously Motor Response: (6) obeys commands Verbal Response: (5) oriented Milagros Total: 15 Psychiatric exam: Present: normal affect, normal mood Skin exam: Present: warm, dry, normal color. Absent: cyanosis, diaphoretic, petechiae, pallor Course Vital Signs 08/23/22 08/23/22 08/23/22 09:14 10:44 12:10 Temperature 98.0 F Pulse Rate 96 65 79 Respiratory 20 18 18 Rate Blood Pressure 113/77 105/66 109/77 O2 Sat by Pulse 98 100 100 Oximetry Medical Decision Making - Medical Decision Making Was pt. sent in by a medical professional or institution (, PA, WIRELESS RETAIL MANAGER, urgent care, hospital, or senior living...) When possible be specific @ -No Did you speak to anyone other than the patient for history (EMS, parent, family, police, friend...)? What history was obtained from this source @ -No Did you review nursing and triage notes (agree or disagree)? Why? @ -I reviewed and agree with nursing and triage notes Were old charts reviewed (outside hosp., previous admission, EMS record, old EKG, old radiological studies, urgent care reports/EKG's, senior living records)? Report findings @ -No old charts were reviewed Differential Diagnosis (chest pain, altered mental status, abdominal pain women, abdominal pain men, vaginal bleeding, weakness, fever, dyspnea, syncope, headache, dizziness, GI bleed, back pain, seizure, CVA, palpatations, mental health, musculoskeletal)? @ -Differential Headache: Migraine, tension, cluster, carbon monoxide, central venous thrombosis, pension karma temporal arteritis, acute closure glaucoma, intercranial hemorrhage, mastoiditis, sinusitis, head injury, this is not meant to be an all-inclusive list. EKG interpreted by me (3pts min.). @ -n/a X-rays interpreted by me (1pt min.). @ -None done CT interpreted by me (1pt min.). @ -None done U/S interpreted by me (1pt. min.). @ -None done What testing was considered but not performed or refused? (CT, X-rays, U/S, labs)? Why? @ -None What meds were considered but not given or refused? Why? @ -None Did you discuss the management of the patient with other professionals (professionals i.e. , PA, WIRELESS RETAIL MANAGER, lab, RT, psych nurse, social services assistant, color shop helper, teacher, public information officer, case management director)? Give summary @ -No Was smoking cessation discussed for >3mins.? @ -No Was critical care preformed (if so, how long)? @ -No Were there social determinants of health that impacted care today? How? (Homelessness, low income, unemployed, alcoholism, drug addiction, transportation, low edu. Level, literacy, decrease access to med. care, [facility], rehab)? @ -No Was there de-escalation of care discussed even if they declined (Discuss DNR or withdrawal of care, Hospice)? DNR status @ -No What co-morbidities impacted this encounter? (DM, HTN, Smoking, COPD, CAD, Cancer, CVA, ARF, Chemo, Hep., AIDS, mental health diagnosis, sleep apnea, morbid obesity)? @ -Patient has history of asthma, GERD, seizure disorder, ADHD, anxiety, bipolar, depression, PTSD, daily smoker Was patient admitted / discharged? Hospital course, mention meds given and rou te, prescriptions, significant lab abnormalities, going to OR and other pertinent info. @ -Discharged Pleasant, nontoxic appearing 22-year-old female presents with left-sided and posterior headache that started this morning upon awakening. Patient states that she expected a headache this morning as she was drinking tequila late last night. She has a history of migraine headaches and last seen [place] [facility] in 2019. Has not had any problems since so has not returned. She states normally when she gets her headaches she takes Motrin 800 with relief however she no longer has this medication. She did take Excedrin Migraine with some relief this morning. She feels as though she is dehydrated. This headache is similar to previous headaches. She denies any fevers. No trauma. Vital signs are stable. No focal neurological deficits. Denies any trauma. Pain relieved after IV fluids Toradol and Zofran. Headache likely due to dehydration and alcohol use. She also does have a history of migraine headaches. She was instructed to follow-up with primary care doctor this week. Discuss the possibility of abortive medications for persistent headaches, reporting more than 10 a month. Return to the emergency room with a concerning symptoms. She is agreeable to this plan of care. Case discussed with Dr. Ulloa Undiagnosed new problem with uncertain prognosis? @ -No Drug Therapy requiring intensive monitoring for toxicity (Heparin, Nitro, Insulin, Cardizem)? @ -No Were any procedures done? @ -No Diagnosis/symptom? @ -Acute headache Acute, or Chronic, or Acute on Chronic? @ -Acute Uncomplicated (without systemic symptoms) or Complicated (systemic symptoms)? @ -Uncomplicated Side effects of treatment? @ -No Exacerbation, Progression, or Severe Exacerbation? @ -No Poses a threat to life or bodily function? How? (Chest pain, [place], [place], pneumonia, PE, COPD, DKA, ARF, appy, cholecystitis, CVA, Diverticulitis, Homicidal, Suicidal, threat to staff... and all critical care pts) @ -No Disposition Clinical Impression: Headache Disposition: HOME SELF-CARE Condition: Good Instructions (If sedation given, give patient instructions): Acute Headache (ED) Additional Instructions: Tylenol and/or Motrin as needed for any pain or discomfort. You can also use Excedrin Migraine. Follow-up with the primary care doctor and discuss frequency of headaches and possible abortive and or maintenance medications. Return to the emergency room with any new or concerning symptoms. Is patient prescribed a controlled substance at d/c from ED?: No Referrals: Phil Singh MD [Primary Care Provider] - 1-2 days Time of Disposition: 11:40
[2022-08-23 10:45] VITALS: RESP 18
[2022-08-23 12:11] VITALS: BP 109/77; PULSE 79
== END 2022-08-23 12:11 | disposition home or self-care (01) ==
LOC: EC 09:10
DX: R51.9 Headache, unspecified (principal); J45.909 Unspecified asthma, uncomplicated; E07.9 Disorder of thyroid, unspecified; F41.9 Anxiety disorder, unspecified; F90.9 Attention-deficit hyperactivity disorder, unspecified type; F31.9 Bipolar disorder, unspecified; F17.290 Nicotine dependence, other tobacco product, uncomplicated; F12.90 Cannabis use, unspecified, uncomplicated; Z91.040 Latex allergy status; Z88.0 Allergy status to penicillin; Z91.011 Allergy to milk products; Z88.5 Allergy status to narcotic agent; Z79.899 Other long term (current) drug therapy; Z79.890 Hormone replacement therapy; Z79.51 Long term (current) use of inhaled steroids
CPT/HCPCS: 99283; 96374; 96375; 96361; J2405; J1885

== ENCOUNTER 2022-12-11 13:35 | Emergency (ER) | payer BC, OTHER ==
[2022-12-11 14:08] VITALS: RESP 18
[2022-12-11] MEDS ORDERED: ONDANSETRON 4 MG/2 ML VIAL IVP STA (14:36)
[2022-12-11] MEDS ORDERED: SODIUM CHLORIDE 0.9% 1,000 ML IV STA (14:40)
--- NOTE | 2022-12-11 15:10 | ED ---
Female Urogenital HPI - General Chief complaint: Vaginal Bleeding Stated complaint: abdo pain blurred vision Time Seen by Provider: 12/11/22 14:10 Source: patient, family, RN notes reviewed Mode of arrival: ambulatory Limitations: no limitations - History of Present Illness Initial comments: Patient is a 22-year-old female presenting to the ER with chief complaint of vaginal bleeding. Patient states she underwent a medication one week ago she states she was about 9 weeks . Her last dose was last Wednesday. Patient states she has been having mild bleeding since then but today her bleeding increased and now she having bad cramps. She reports having to wear an adult diaper and changing it about every hour due to the bleeding. Patient reports a history of suicidal thoughts but she does not report any currently. She states she goes to therapy and is on medication for her mental health. She was told to stop taking her medication until her was complete. Patient endorses associated shortness of breath but denies any other complaints. - Related Data Home Medications Medication Instructions Recorded Confirmed Albuterol Inhaler [Ventolin Hfa 1 puff INHALATION RT-Q4H PRN 07/19/20 07/19/20 Inhaler] Fluticasone Nasal [place] [Flonase 1 spr EA NOSTRIL DAILY 07/19/20 07/19/20 Nasal [place]] Levothyroxine Sodium [Synthroid] 25 mcg PO DAILY 07/19/20 07/19/20 Medroxyprogesterone Acetate 150 mg IM Q90D 07/19/20 07/19/20 [Depo-Provera] busPIRone HCl [Buspar] 5 mg PO BID 07/19/20 07/19/20 Previous Rx's Medication Instructions Recorded Cephalexin [Keflex] 500 mg PO Q6H #28 cap 08/15/20 Famotidine [Pepcid] 20 mg PO DAILY 28 Days #28 tablet 08/20/20 Fluticasone Nasal [place] [Flonase 2 spr EA NOSTRIL DAILY #1 bottle 08/20/20 Nasal [place]] Loratadine-Pseudoeph 10-240 mg 1 tab PO DAILY 30 Days #30 tab 08/20/20 [Claritin-D 24 Hour] Cephalexin [Keflex] 500 mg PO BID 5 Days #10 cap 09/22/20 Ibuprofen [Motrin] 600 mg PO Q8HR PRN #20 tab 04/14/21 Ibuprofen [Motrin] 600 mg PO Q8HR PRN #20 tab 09/27/21 Cyclobenzaprine [Flexeril] 5 mg PO TID PRN #10 tablet 11/09/21 Ketorolac [Toradol] 10 mg PO Q6HR PRN #12 tab 11/09/21 Ondansetron Odt [Zofran Odt] 4 mg PO Q8HR PRN #10 tab 11/09/21 Sulfamethox-Tmp 800-160Mg [Bactrim 1 tab PO Q12HR 5 Days #10 tab 11/09/21 DS 800-160 mg] Allergies Allergy/AdvReac Type Severity Reaction Status Date / Time milk Allergy Severe Rash/Hives Verified 12/11/22 13:56 amoxicillin [Amoxicillin] Allergy Anaphylaxis Verified 12/11/22 13:56 gluten Allergy Diarrhea Verified 12/11/22 13:56 latex Allergy Rash/Hives Verified 12/11/22 13:56 Milk Containing Products Allergy Rash/Hives Verified 12/11/22 13:56 (Dairy) [Dairy] morphine Allergy Rash/Hives Verified 12/11/22 13:56 Review of Systems ROS Statement: Those systems with pertinent positive or pertinent negative responses have been documented in the HPI. ROS Other: All systems not noted in ROS Statement are negative. 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 anemia. borderline personality disorder, agoraphobia, PPD, migraines History of Any Multi-Drug Resistant Organisms: None Reported Past Surgical History: Ear Surgery Additional Past Surgical History / Comment(s): PE tubes, Past Anesthesia/Blood Transfusion Reactions: No Reported Reaction Past Psychological History: ADD/ADHD, Anxiety, Bipolar, Depression, PTSD Smoking Status: Current every day smoker, Vaper Past Alcohol Use History: Rare Past Drug Use History: Marijuana - Past Family History Mother Family Medical History: No Reported History General Exam Limitations: no limitations General appearance: alert, in no apparent distress Respiratory exam: Present: normal lung sounds bilaterally. Absent: respiratory distress, wheezes, rales, rhonchi, stridor Cardiovascular Exam: Present: regular rate, normal rhythm, normal heart sounds. Absent: systolic murmur, diastolic murmur, rubs, gallop, clicks External exam: Present: normal external exam Speculum exam: Present: other (bleeding noted from cervical os) By manual exam: Present: uterine tenderness Course Vital Signs 12/11/22 12/11/22 12/11/22 13:50 15:04 17:45 Temperature 98.8 F Pulse Rate 85 83 77 Respiratory 18 18 18 Rate Blood Pressure 104/70 103/67 97/68 O2 Sat by Pulse 100 100 100 Oximetry Medical Decision Making - Medical Decision Making Was pt. sent in by a medical professional or institution (, PA, CHEMICAL LAB TECHNICIAN, urgent care, hospital, or residential...) When possible be specific @ -No Did you speak to anyone other than the patient for history (EMS, parent, family, police, friend...)? What history was obtained from this source @ -Mother Did you review nursing and triage notes (agree or disagree)? Why? @ -I reviewed and agree with nursing and triage notes Were old charts reviewed (outside hosp., previous admission, EMS record, old EKG, old radiological studies, urgent care reports/EKG's, residential records)? Report findings @ -No old charts were reviewed Differential Diagnosis (chest pain, altered mental status, abdominal pain women, abdominal pain men, vaginal bleeding, weakness, fever, dyspnea, syncope, headache, dizziness, GI bleed, back pain, seizure, CVA, palpatations, mental health, musculoskeletal)? @ -Differential Vaginal Bleeding: Spontaneous , threatened , molar , ectopic , bloody show, incompetent cervix, abruptioplacenta, placenta previa, uterine rupture, dysfunctional uterine bleeding, hemorrhage, uterine fibroids, this is not meant to be an all-inclusive list. EKG interpreted by me (3pts min.). @ -None X-rays interpreted by me (1pt min.). @ -None done CT interpreted by me (1pt min.). @ -None done U/S interpreted by me (1pt. min.). @ -Transvaginal ultrasound shows no abnormal fluid seen within the uterus with endometrial stripe thickness of 1 cm. There is a small amount of fluid in the cul-de-sac which is likely physiologic. No signs of ovarian torsion is noted. What testing was considered but not performed or refused? (CT, X-rays, U/S, labs)? Why? @ -None What meds were considered but not given or refused? Why? @ -None Did you discuss the management of the patient with other professionals (professionals i.e. , PA, CHEMICAL LAB TECHNICIAN, lab, RT, psych nurse, manager social services, attorney law clerk, teacher, juvenile justice officer, case work aide)? Give summary @ -Yes, I discussed this case with Latrice from [facility]. She stated that the patient is clear for discharge and will be sent home with resources. Was smoking cessation discussed for >3mins.? @ -No Was critical care preformed (if so, how long)? @ -No Were there social determinants of health that impacted care today? How? (Homelessness, low income, unemployed, alcoholism, drug addiction, transportation, low edu. Level, literacy, decrease access to med. care, [facility], rehab)? @ -No Was there de-escalation of care discussed even if they declined (Discuss DNR or withdrawal of care, Hospice)? DNR status @ -No What co-morbidities impacted this encounter? (DM, HTN, Smoking, COPD, CAD, Cancer, CVA, ARF, Chemo, Hep., AIDS, mental health diagnosis, sleep apnea, morbid obesity)? @ -Mental health Was patient admitted / discharged? Hospital course, mention meds given and route, prescriptions, significant lab abnormalities, going to OR and other pertinent info. @ -Discharged. Labs in the ER showed Hgb of 12.3 and an HCG of 1987.4. Transvaginal ultrasound shows no abnormal fluid seen within the uterus with end ometrial stripe thickness of 1 cm. There is a small amount of fluid in the cul-de-sac which is likely physiologic. No signs of ovarian torsion is noted. Patient received IV TXA and 1 L of fluids. Patient also spoke with [facility] for her mental health concerns. They reports she was safe for discharge and will be sent home with resources. Patient reported a headache from the TXA and was given 650mg of PO tylenol. Patient will be discharged in stable condition with follow- up to her BANKING MANAGEMENT CONSULTING MANAGER and PCP. Patient expressed understanding. Undiagnosed new problem with uncertain prognosis? @ -No Drug Therapy requiring intensive monitoring for toxicity (Heparin, Nitro, Insulin, Cardizem)? @ -No Were any procedures done? @ -No Diagnosis/symptom? @ -Dysfunctional uterine bleeding Acute, or Chronic, or Acute on Chronic? @ -Acute Uncomplicated (without systemic symptoms) or Complicated (systemic symptoms)? @ -Uncomplicated Side effects of treatment? @ -No Exacerbation, Progression, or Severe Exacerbation? @ -No Poses a threat to life or bodily function? How? (Chest pain, [place], [place], pneumonia, PE, COPD, DKA, ARF, appy, cholecystitis, CVA, Diverticulitis, Homicidal, Suicidal, threat to staff... and all critical care pts) @ -No - Lab Data Result diagrams: 12/11/22 15:00 12/11/22 15:00 Lab Results 12/11/22 12/11/22 12/11/22 Range/Units 15:00 15:00 15:00 WBC 6.7 (3.8-10.6) k/uL RBC 4.15 (3.80-5.40) m/uL Hgb 12.3 (11.4-16.0) gm/dL Hct 37.8 (34.0-46.0) % MCV 91.2 (80.0-100.0) fL MCH 29.7 (25.0-35.0) pg MCHC 32.5 (31.0-37.0) g/dL RDW 13.8 (11.5-15.5) % Plt Count 180 (150-450) k/uL MPV 9.4 Neutrophils % 67 % Lymphocytes % 24 % Monocytes % 5 % Eosinophils % 2 % Basophils % 1 % Neutrophils # 4.5 (1.3-7.7) k/uL Lymphocytes # 1.6 (1.0-4.8) k/uL Monocytes # 0.3 (0-1.0) k/uL Eosinophils # 0.1 (0-0.7) k/uL Basophils # 0.0 (0-0.2) k/uL Sodium 142 (137-145) mmol/L Potassium 3.8 (3.5-5.1) mmol/L Chloride 108 H (98-107) mmol/L Carbon Dioxide 22 (22-30) mmol/L Anion Gap 12 mmol/L BUN 11 (7-17) mg/dL Creatinine 0.66 (0.52-1.04) mg/dL Est GFR (CKD-EPI)AfAm >90 (>60 ml/min/1.73 sqM) Est GFR (CKD-EPI)NonAf >90 (>60 ml/min/1.73 sqM) Glucose 76 (74-99) mg/dL Calcium 9.8 (8.4-10.2) mg/dL Total Bilirubin 0.3 (0.2-1.3) mg/dL AST 22 (14-36) U/L ALT 20 (4-34) U/L Alkaline Phosphatase 52 (38-126) U/L Total Protein 7.7 (6.3-8.2) g/dL Albumin 4.8 (3.5-5.0) g/dL HCG, Quant 1987.4 mIU/mL Urine Color Colorless Urine Appearance Clear (Clear) Urine pH 6.0 (5.0-8.0) Ur Specific [place] 1.015 (1.001-1.035) Urine Protein Negative (Negative) Urine Glucose (UA) Negative (Negative) Urine Ketones Negative (Negative) Urine Blood Large H (Negative) Urine Nitrite Negative (Negative) Urine Bilirubin Negative (Negative) Urine Urobilinogen <2.0 (<2.0) mg/dL Ur Leukocyte Esterase Moderate H (Negative) Urine RBC 109 H (0-5) /hpf Urine WBC 9 H (0-5) /hpf Ur Squamous Epith Cells <1 (0-4) /hpf Urine Bacteria Rare H (None) /hpf Urine Mucus Rare H (None) /hpf Disposition Clinical Impression: Dysfunctional uterine bleeding Disposition: HOME SELF-CARE Condition: Stable Additional Instructions: Please return to the Emergency Department if symptoms worsen or any other concer ns. Please follow-up with BANKING MANAGEMENT CONSULTING MANAGER outpatient. Is patient prescribed a controlled substance at d/c from ED?: No Referrals: Phil Singh MD [Primary Care Provider] - 1-2 days Fiorella Up MD [STAFF PHYSICIAN] - 1-2 days Time of Disposition: 18:31
[2022-12-11 15:12] LABS: Basophils % (A) 1 %; Eosinophils # (A) 0.1 k/uL (0-0.7); Eosinophils % (A) 2 %; HCT 37.8 % (34.0-46.0); HGB 12.3 gm/dL (11.4-16.0); Lymphocytes # (A) 1.6 k/uL (1.0-4.8); Lymphocytes % (A) 24 %; MCH 29.7 pg (25.0-35.0); MCHC 32.5 g/dL (31.0-37.0); MCV 91.2 fL (80.0-100.0); Mean Platelet Volume 9.4; Monocytes # (A) 0.3 k/uL (0-1.0); Monocytes % (A) 5 %; Neutrophils # (A) 4.5 k/uL (1.3-7.7); Neutrophils % (A) 67 %; Platelet Count 180 k/uL (150-450); RBC 4.15 m/uL (3.80-5.40); RDW 13.8 % (11.5-15.5); WBC 6.7 k/uL (3.8-10.6)
[2022-12-11 15:30] LABS: ALT 20 U/L (4-34); AST 22 U/L (14-36); African American GFR (CKD) >90 (>60 ml/min/1.73 sqM); Albumin 4.8 g/dL (3.5-5.0); Alkaline Phosphatase 52 U/L (38-126); Anion Gap 12 mmol/L; Blood Urea Nitrogen 11 mg/dL (7-17); Calcium 9.8 mg/dL (8.4-10.2); Carbon Dioxide 22 mmol/L (22-30); Chloride 108 mmol/L (98-107); Glucose 76 mg/dL (74-99); Non-African American GFR(CKD) >90 (>60 ml/min/1.73 sqM); Potassium 3.8 mmol/L (3.5-5.1); Sodium 142 mmol/L (137-145); Total Bilirubin 0.3 mg/dL (0.2-1.3); Total Protein 7.7 g/dL (6.3-8.2)
[2022-12-11 15:46] LABS: HCG,Quantitative Serum 1987.4 mIU/mL
[2022-12-11 15:49] LABS: Appearance,Urine Clear (Clear); Bacteria,Urine Rare /hpf; Bilirubin,Urine Negative (Negative); Blood,Urine Large (Negative); Color,Urine Colorless; Glucose,Urine (UA) Negative (Negative); Ketones,Urine Negative (Negative); Leukocyte Esterase,Urine Moderate (Negative); Mucus,Urine Rare /hpf; Nitrite,Urine Negative (Negative); Protein,Urine Negative (Negative); RBC,Urine 109 /hpf (0-5); Specific Gravity,Urine 1.015 (1.001-1.035); Squamous Epithelial Cell,Urine <1 /hpf (0-4); Urobilinogen,Urine <2.0 mg/dL (<2.0); WBC,Urine 9 /hpf (0-5)
--- NOTE | 2022-12-11 16:14 | US ---
EXAMINATION TYPE: US transvaginal. Plus Dopplers DATE OF EXAM: 12/11/2022 COMPARISON: 07/19/2020 CLINICAL INDICATION: Female, 22 years old with history of bleeding; Patient states she was about 9 we eks and then took the pill, now has had a large amount of bleeding x couple days TECHNIQUE: Transvaginal ER exam. Color Doppler and spectral waveform analysis of the ovarian arteries and veins. Date of LMP: Couple months ago EXAM MEASUREMENTS: Uterus: 8.3 x 5.0 x 6.3 cm Endometrial Stripe: 1.0 cm Right Ovary: 2.7 x 1.8 x 2.3 cm Left Ovary: 2.8 x 2.3 x 1.9 cm 1. Uterus: anteverted 2. Endometrium: appears wnl 3. Right Ovary: wnl 4. Left Ovary: 1.7 x 1.5 x 1.4cm hypoechoic area, likely corpus luteum Spectral, color and waveform doppler imaging shows good arterial and venous flow within the ovaries ; there is no evidence for ovarian torsion. 5. Bilateral Adnexa: wnl 6. Posterior cul-de-sac: small amount of free fluid IMPRESSION: 1. No abnormal fluid seen within the uterus. Endometrial stripe thickness 1.0 cm. 2. No sonographic evidence for ovarian torsion. 3. Small amount of cul-de-sac free fluid probably physiologic.
[2022-12-11] MEDS ORDERED: TRANEXAMIC ACID 1,000 MG/10 ML VIAL MISCELLANE ONE (16:31)
[2022-12-11] MEDS ORDERED: TRANEXAMIC 1,000 MG/100ML-NACL 1,000 MG in SALINE 1 100ML.BAG IVPB ONE (16:45)
[2022-12-11] MEDS ORDERED: ACETAMINOPHEN TAB 325 MG TAB PO STA (18:08)
[2022-12-12 06:23] VITALS: BP 98/69; PULSE 76; TEMP 98
== END 2022-12-11 19:17 | disposition home or self-care (01) ==
LOC: EC 13:35
DX: O46.91 Antepartum hemorrhage, unspecified, first trimester (principal); O99.511 Diseases of the respiratory system complicating pregnancy, first trimester; J45.909 Unspecified asthma, uncomplicated; O99.281 Endocrine, nutritional and metabolic diseases complicating pregnancy, first trimester; E07.9 Disorder of thyroid, unspecified; O99.341 Other mental disorders complicating pregnancy, first trimester; F41.9 Anxiety disorder, unspecified; F32.A Depression, unspecified; O99.331 Smoking (tobacco) complicating pregnancy, first trimester; F17.290 Nicotine dependence, other tobacco product, uncomplicated; O99.321 Drug use complicating pregnancy, first trimester; F12.90 Cannabis use, unspecified, uncomplicated; Z79.890 Hormone replacement therapy; Z79.899 Other long term (current) drug therapy; Z91.011 Allergy to milk products; Z88.0 Allergy status to penicillin; Z91.018 Allergy to other foods; Z88.5 Allergy status to narcotic agent; Z91.040 Latex allergy status; Z3A.09 9 weeks gestation of pregnancy
CPT/HCPCS: 82075; 36415; 80053; 85025; 81001; 84702; 93975; 76830; 99284; 96365; 96375; 96361 ×2; J2405

== ENCOUNTER 2022-12-23 14:57 | Emergency (ER) | payer BC ==
[2022-12-23 15:36] VITALS: RESP 18
--- NOTE | 2022-12-23 15:52 | ED ---
Female Urogenital HPI - General Chief complaint: Vaginal Bleeding Stated complaint: Weakness Time Seen by Provider: 12/23/22 15:41 Source: patient, RN notes reviewed Mode of arrival: ambulatory Limitations: no limitations - History of Present Illness Initial comments: Patient is a 22-year-old female presented here with a chief complaint of vaginal bleeding. Patient was seen here in the ER on 12/11/22 with the same complaint. Patient underwent a medication about 2 weeks ago. She was treated with TXA and she states her bleeding stopped for a couple of days and she was feeling better but then she started bleeding and cramping again. She recently follow-up with her PCP who ran labs and took a specimen of her endometrium. Patient is sceduled for an ultrasound in January. Patient states she is still having to wear a adult diaper and change it every 4 hours. She also endorses shortness of breath and mild suprapubic pain. She denies any chest pain, chills, fevers, night sweats. - Related Data Home Medications Medication Instructions Recorded Confirmed Albuterol Inhaler [Ventolin Hfa 1 puff INHALATION RT-Q4H PRN 07/19/20 07/19/20 Inhaler] Fluticasone Nasal [place] [Flonase 1 spr EA NOSTRIL DAILY 07/19/20 07/19/20 Nasal [place]] Levothyroxine Sodium [Synthroid] 25 mcg PO DAILY 07/19/20 07/19/20 Medroxyprogesterone Acetate 150 mg IM Q90D 07/19/20 07/19/20 [Depo-Provera] busPIRone HCl [Buspar] 5 mg PO BID 07/19/20 07/19/20 Previous Rx's Medication Instructions Recorded Cephalexin [Keflex] 500 mg PO Q6H #28 cap 08/15/20 Famotidine [Pepcid] 20 mg PO DAILY 28 Days #28 tablet 08/20/20 Fluticasone Nasal [place] [Flonase 2 spr EA NOSTRIL DAILY #1 bottle 08/20/20 Nasal [place]] Loratadine-Pseudoeph 10-240 mg 1 tab PO DAILY 30 Days #30 tab 08/20/20 [Claritin-D 24 Hour] Cephalexin [Keflex] 500 mg PO BID 5 Days #10 cap 09/22/20 Ibuprofen [Motrin] 600 mg PO Q8HR PRN #20 tab 04/14/21 Ibuprofen [Motrin] 600 mg PO Q8HR PRN #20 tab 09/27/21 Cyclobenzaprine [Flexeril] 5 mg PO TID PRN #10 tablet 11/09/21 Ketorolac [Toradol] 10 mg PO Q6HR PRN #12 tab 11/09/21 Ondansetron Odt [Zofran Odt] 4 mg PO Q8HR PRN #10 tab 11/09/21 Sulfamethox-Tmp 800-160Mg [Bactrim 1 tab PO Q12HR 5 Days #10 tab 11/09/21 DS 800-160 mg] Allergies Allergy/AdvReac Type Severity Reaction Status Date / Time milk Allergy Severe Rash/Hives Verified 12/23/22 15:13 amoxicillin [Amoxicillin] Allergy Anaphylaxis Verified 12/23/22 15:13 gluten Allergy Diarrhea Verified 12/23/22 15:13 latex Allergy Rash/Hives Verified 12/23/22 15:13 Milk Containing Products Allergy Rash/Hives Verified 12/23/22 15:13 (Dairy) [Dairy] morphine Allergy Rash/Hives Verified 12/23/22 15:13 Review of Systems ROS Statement: Those systems with pertinent positive or pertinent negative responses have been documented in the HPI. ROS Other: All systems not noted in ROS Statement are negative. 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 anemia. borderline personality disorder, agoraphobia, PPD, migraines History of Any Multi-Drug Resistant Organisms: None Reported Past Surgical History: Ear Surgery Additional Past Surgical History / Comment(s): PE tubes, Past Anesthesia/Blood Transfusion Reactions: No Reported Reaction Past Psychological History: ADD/ADHD, Anxiety, Bipolar, Depression, PTSD Smoking Status: Current every day smoker, Vaper Past Alcohol Use History: Rare Past Drug Use History: Marijuana - Past Family History Mother Family Medical History: No Reported History General Exam Limitations: no limitations General appearance: alert, in no apparent distress Respiratory exam: Present: normal lung sounds bilaterally. Absent: respiratory distress, wheezes, rales, rhonchi, stridor Cardiovascular Exam: Present: regular rate, normal rhythm, normal heart sounds. Absent: systolic murmur, diastolic murmur, rubs, gallop, clicks GI/Abdominal exam: Present: soft, tenderness (suprapubic), normal bowel sounds. Absent: distended, guarding, rebound, rigid Neurological exam: Present: alert, oriented X3, CN II-XII intact Psychiatric exam: Present: normal affect, normal mood Skin exam: Present: warm, dry, intact, normal color. Absent: rash Course Vital Signs 12/23/22 12/23/22 15:09 16:03 Temperature 97.9 F 98.2 F Pulse Rate 88 69 Respiratory 18 18 Rate Blood Pressure 117/84 111/67 O2 Sat by Pulse 98 Oximetry Medical Decision Making - Medical Decision Making Was pt. sent in by a medical professional or institution (, PA, RADIO ASSEMBLER, urgent care, hospital, or detention...) When possible be specific @ -No Did you speak to anyone other than the patient for history (EMS, parent, family, police, friend...)? What history was obtained from this source @ -No Did you review nursing and triage notes (agree or disagree)? Why? @ -I reviewed and agree with nursing and triage notes Were old charts reviewed (outside hosp., previous admission, EMS record, old EKG, old radiological studies, urgent care reports/EKG's, detention records)? Report findings @ -Yes, I reviewed old charts from ER visit on 12/11/22. Patients labs were stable then and her HCG was 1986. Transvaginal US showed endometrial stripe of 1 cm. No signs of ovarian torsion. Patient received IV TXA for bleedinig control and was discharged. Differential Diagnosis (chest pain, altered mental status, abdominal pain women, abdominal pain men, vaginal bleeding, weakness, fever, dyspnea, syncope, headache, dizziness, GI bleed, back pain, seizure, CVA, palpatations, mental health, musculoskeletal)? @ -Differential Vaginal Bleeding: Spontaneous , threatened , molar , ectopic , bloody show, incompetent cervix, abruptioplacenta, placenta previa, uterine rupture, dysfunctional uterine bleeding, hemorrhage, uterine fibroids, this is not meant to be an all-inclusive list. EKG interpreted by me (3pts min.). @ -None X-rays interpreted by me (1pt min.). @ -None done CT interpreted by me (1pt min.). @ -None done U/S interpreted by me (1pt. min.). @ -None done What testing was considered but not performed or refused? (CT, X-rays, U/S, labs)? Why? @ -Ultrasound was considered but due to a decrease in the patient's hCG level was not performed. What meds were considered but not given or refused? Why? @ -None Did you discuss the management of the patient with other professionals (professionals i.e. , PA, RADIO ASSEMBLER, lab, RT, psych nurse, social work professor, river rafting guide, teacher, first officer and flight instructor, family independence case manager)? Give summary @ -No Was smoking cessation discussed for >3mins.? @ -No Was critical care preformed (if so, how long)? @ -No Were there social determinants of health that impacted care today? How? (Homeles sness, low income, unemployed, alcoholism, drug addiction, transportation, low edu. Level, literacy, decrease access to med. care, detention, rehab)? @ -No Was there de-escalation of care discussed even if they declined (Discuss DNR or withdrawal of care, Hospice)? DNR status @ -No What co-morbidities impacted this encounter? (DM, HTN, Smoking, COPD, CAD, Cancer, CVA, ARF, Chemo, Hep., AIDS, mental health diagnosis, sleep apnea, morbid obesity)? @ -None Was patient admitted / discharged? Hospital course, mention meds given and route, prescriptions, significant lab abnormalities, going to OR and other pertinent info. @ -Discharged. Patient's vital signs remained stable during ER visit. Labs were repeated from her last visit. Today her Hgb was 13.0 and HCG 267, decreased from 1986 on 12/11/22. Patient is scheduled to see her PCP tomrrow for follow-up. I advised her to make an appointment with an SADDLE LINING STITCHER as well. Information for an SADDLE LINING STITCHER was given to the patient at discharge. Patient will be discharged home in stable condition with follow-up to PCP and SADDLE LINING STITCHER. Patient expressed understanding and agreement with care plan. Undiagnosed new problem with uncertain prognosis? @ -No Drug Therapy requiring intensive monitoring for toxicity (Heparin, Nitro, Insulin, Cardizem)? @ -No Were any procedures done? @ -No Diagnosis/symptom? @ -Dysfunctional uterine bleeding Acute, or Chronic, or Acute on Chronic? @ -Acute Uncomplicated (without systemic symptoms) or Complicated (systemic symptoms)? @ -Uncomplicated Side effects of treatment? @ -No Exacerbation, Progression, or Severe Exacerbation? @ -No Poses a threat to life or bodily function? How? (Chest pain, [place], [place], pneumonia, PE, COPD, DKA, ARF, appy, cholecystitis, CVA, Diverticulitis, Homicidal, Suicidal, threat to staff... and all critical care pts) @ -No - Lab Data Result diagrams: 12/23/22 16:11 12/23/22 16:11 Lab Results 12/23/22 12/23/22 Range/Units 16:11 16:11 WBC 4.7 (3.8-10.6) k/uL RBC 4.23 (3.80-5.40) m/uL Hgb 13.0 (11.4-16.0) gm/dL Hct 38.5 (34.0-46.0) % MCV 91.0 (80.0-100.0) fL MCH 30.7 (25.0-35.0) pg MCHC 33.8 (31.0-37.0) g/dL RDW 13.6 (11.5-15.5) % Plt Count 178 (150-450) k/uL MPV 9.3 Sodium 140 (137-145) mmol/L Potassium 3.8 (3.5-5.1) mmol/L Chloride 105 (98-107) mmol/L Carbon Dioxide 22 (22-30) mmol/L Anion Gap 13 mmol/L BUN 11 (7-17) mg/dL Creatinine 0.75 (0.52-1.04) mg/dL Est GFR (CKD-EPI)AfAm >90 (>60 ml/min/1.73 sqM) Est GFR (CKD-EPI)NonAf >90 (>60 ml/min/1.73 sqM) Glucose 89 (74-99) mg/dL Calcium 10.0 (8.4-10.2) mg/dL Total Bilirubin 0.2 (0.2-1.3) mg/dL AST 19 (14-36) U/L ALT 14 (4-34) U/L Alkaline Phosphatase 69 (38-126) U/L Total Protein 7.8 (6.3-8.2) g/dL Albumin 4.9 (3.5-5.0) g/dL HCG, Quant 267.9 mIU/mL Disposition Clinical Impression: Dysfunctional uterine bleeding Disposition: HOME SELF-CARE Condition: Stable Instructions (If sedation given, give patient instructions): Abnormal (Dysfunctional) Uterine Bleeding (ED) Additional Instructions: Please return to the Emergency Department if symptoms worsen or any other concerns. Please follow-up wth PCP tomorrow and SADDLE LINING STITCHER claudine. I have attached an SADDLE LINING STITCHER, Dr. Nava, information to your discharge paperwork. Is patient prescribed a controlled substance at d/c from ED?: No Referrals: None,Stated [REFERRING] - 1-2 days Iesha Nava DO [Doctor of Osteopathic Medicine] - 1-2 days Time of Disposition: 17:36
[2022-12-23 16:39] LABS: HCT 38.5 % (34.0-46.0); MCH 30.7 pg (25.0-35.0); MCHC 33.8 g/dL (31.0-37.0); Mean Platelet Volume 9.3; Platelet Count 178 k/uL (150-450); RBC 4.23 m/uL (3.80-5.40); RDW 13.6 % (11.5-15.5); WBC 4.7 k/uL (3.8-10.6)
[2022-12-23 16:47] LABS: ALT 14 U/L (4-34); AST 19 U/L (14-36); African American GFR (CKD) >90 (>60 ml/min/1.73 sqM); Albumin 4.9 g/dL (3.5-5.0); Alkaline Phosphatase 69 U/L (38-126); Anion Gap 13 mmol/L; Blood Urea Nitrogen 11 mg/dL (7-17); Carbon Dioxide 22 mmol/L (22-30); Chloride 105 mmol/L (98-107); Glucose 89 mg/dL (74-99); Non-African American GFR(CKD) >90 (>60 ml/min/1.73 sqM); Potassium 3.8 mmol/L (3.5-5.1); Sodium 140 mmol/L (137-145); Total Bilirubin 0.2 mg/dL (0.2-1.3); Total Protein 7.8 g/dL (6.3-8.2)
[2022-12-23 17:03] LABS: HCG,Quantitative Serum 267.9 mIU/mL
[2022-12-23 18:22] VITALS: BP 113/81; PULSE 68; TEMP 98.1
== END 2022-12-23 18:07 | disposition home or self-care (01) ==
LOC: EC 14:57
DX: N93.8 Other specified abnormal uterine and vaginal bleeding (principal); J45.909 Unspecified asthma, uncomplicated; E07.9 Disorder of thyroid, unspecified; F90.9 Attention-deficit hyperactivity disorder, unspecified type; F41.9 Anxiety disorder, unspecified; F31.9 Bipolar disorder, unspecified; F17.290 Nicotine dependence, other tobacco product, uncomplicated; F12.90 Cannabis use, unspecified, uncomplicated; Z79.890 Hormone replacement therapy; Z79.899 Other long term (current) drug therapy; Z91.011 Allergy to milk products; Z88.0 Allergy status to penicillin; Z88.5 Allergy status to narcotic agent; Z91.040 Latex allergy status; Z91.018 Allergy to other foods
CPT/HCPCS: 36415; 80053; 84702; 85027; 86850; 86870; 86880; 86900; 86901; 99284

== ENCOUNTER → 2023-05-04 | Outpatient (CLI) | payer BC ==
--- NOTE | 2023-05-04 16:39 | US ---
EXAMINATION TYPE: Transabdominal DATE OF EXAM: 05/04/2023 4:26 PM COMPARISON: Multiple priors. CLINICAL INDICATION: Female, 22 years old with history of O99.891 OTH DISEASES AND CONDITIONS COMPLIC ATING P; Pt states N/V with x 3 weeks. Pt had a medical December 2022. EXAM PERFORMED: Transabdominal (TA) EXAM MEASUREMENTS: GESTATIONAL AGE / DATING Physician Established: Not yet established Dates by LMP: LMP unknown Dates by First Scan: No previous this is first scan Dates by Current Scan for: (8 weeks/6 days) EDC: 12/08/23 MATERNAL ANATOMY Uterus: 9.0 x 8.3 x 9.0cm Right Ovary: 3.6 x 2.6 x 2.4cm Left Ovary: 2.5 x 2.2 x 1.4cm Post CDS / Adnexa: wnl Presence of free fluid: No Presence of corpus luteal cyst: Possible in rt ov measuring 2.4 x 1.7 x 1.7cm Presence of subchorionic bleed: Yes measuring 2.1 x 1.3 x 1.1cm GESTATION / SURVEY CRL: 2.22cm (8 weeks/6 days) MSD: Not measured, appears wnl Yolk Sac (normal less than 6mm): 2.9mm Heart Rate: 154 bpm Rhythm: Normal IUP: Viable IUP Date of LMP: unknown Beta HcG (if available): N/A IMPRESSION: 1. Single live IUP seen measuring 8 weeks 6 days
== END | disposition home or self-care (01) ==
LOC: RADUSWWP 15:35
PROVIDERS: ATTEND Family Medicine
DX: O99.891 Other specified diseases and conditions complicating pregnancy (principal); O21.9 Vomiting of pregnancy, unspecified; Z3A.08 8 weeks gestation of pregnancy
CPT/HCPCS: 76801

== ENCOUNTER 2023-06-20 23:49 | Emergency (ER) | payer BC ==
[2023-06-21 00:38] VITALS: RESP 16; TEMP 98.2
--- NOTE | 2023-06-21 00:49 | ED ---
General Adult HPI - General Chief complaint: Skin/Abscess/Foreign Body Stated complaint: Rash Time Seen by Provider: 06/21/23 00:24 Source: patient, RN notes reviewed, old records reviewed Mode of arrival: ambulatory Limitations: no limitations - History of Present Illness Initial comments: 22-year-old female with rash to the lower extremities. Patient noted the rash yesterday and it has worsened over the past 24 hours. Rash is not painful, not itchy, is erythematous. No other complaints. No fever. No cough or dyspnea. No abdominal pain nausea or vomiting. - Related Data Home Medications Medication Instructions Recorded Confirmed Albuterol Inhaler [Ventolin Hfa 1 puff INHALATION RT-Q4H PRN 07/19/20 07/19/20 Inhaler] Fluticasone Nasal [place] [Flonase 1 spr EA NOSTRIL DAILY 07/19/20 07/19/20 Nasal [place]] Levothyroxine Sodium [Synthroid] 25 mcg PO DAILY 07/19/20 07/19/20 Medroxyprogesterone Acetate 150 mg IM Q90D 07/19/20 07/19/20 [Depo-Provera] busPIRone HCl [Buspar] 5 mg PO BID 07/19/20 07/19/20 Previous Rx's Medication Instructions Recorded Cephalexin [Keflex] 500 mg PO Q6H #28 cap 08/15/20 Famotidine [Pepcid] 20 mg PO DAILY 28 Days #28 tablet 08/20/20 Fluticasone Nasal [place] [Flonase 2 spr EA NOSTRIL DAILY #1 bottle 08/20/20 Nasal [place]] Loratadine-Pseudoeph 10-240 mg 1 tab PO DAILY 30 Days #30 tab 08/20/20 [Claritin-D 24 Hour] Cephalexin [Keflex] 500 mg PO BID 5 Days #10 cap 09/22/20 Ibuprofen [Motrin] 600 mg PO Q8HR PRN #20 tab 04/14/21 Ibuprofen [Motrin] 600 mg PO Q8HR PRN #20 tab 09/27/21 Cyclobenzaprine [Flexeril] 5 mg PO TID PRN #10 tablet 11/09/21 Ketorolac [Toradol] 10 mg PO Q6HR PRN #12 tab 11/09/21 Ondansetron Odt [Zofran Odt] 4 mg PO Q8HR PRN #10 tab 11/09/21 Sulfamethox-Tmp 800-160Mg [Bactrim 1 tab PO Q12HR 5 Days #10 tab 11/09/21 DS 800-160 mg] Allergies Allergy/AdvReac Type Severity Reaction Status Date / Time milk Allergy Severe Rash/Hives Verified 06/21/23 00:04 amoxicillin [Amoxicillin] Allergy Anaphylaxis Verified 06/21/23 00:04 gluten Allergy Diarrhea Verified 06/21/23 00:04 latex Allergy Rash/Hives Verified 06/21/23 00:04 Milk Containing Products Allergy Rash/Hives Verified 06/21/23 00:04 (Dairy) [Dairy] morphine Allergy Rash/Hives Verified 06/21/23 00:04 Review of Systems ROS Statement: Those systems with pertinent positive or pertinent negative responses have been documented in the HPI. ROS Other: All systems not noted in ROS Statement are negative. 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 anemia. borderline personality disorder, agoraphobia, PPD, migraines History of Any Multi-Drug Resistant Organisms: None Reported Past Surgical History: Ear Surgery Additional Past Surgical History / Comment(s): PE tubes, Past Anesthesia/Blood Transfusion Reactions: No Reported Reaction Past Psychological History: ADD/ADHD, Anxiety, Bipolar, Depression, PTSD Smoking Status: Current every day smoker, Vaper Past Alcohol Use History: Rare Past Drug Use History: Marijuana - Past Family History Mother Family Medical History: No Reported History General Exam Limitations: no limitations General appearance: alert, in no apparent distress Head exam: Present: atraumatic, normocephalic Eye exam: Present: normal appearance, PERRL ENT exam: Present: normal exam Neck exam: Present: normal inspection. Absent: tenderness, meningismus Respiratory exam: Present: normal lung sounds bilaterally. Absent: respiratory distress, wheezes Cardiovascular Exam: Present: regular rate, normal rhythm GI/Abdominal exam: Present: soft. Absent: distended Extremities exam: Present: other (Flat erythematous rash, consistent with petechiae) Neurological exam: Present: alert, oriented X3, CN II-XII intact Psychiatric exam: Present: normal affect, normal mood Skin exam: Present: petechiae (Bilateral lower extremities) Course Vital Signs 06/21/23 00:03 Temperature 98.2 F Pulse Rate 77 Respiratory 16 Rate Blood Pressure 120/78 O2 Sat by Pulse 100 Oximetry Medical Decision Making - Medical Decision Making Was pt. sent in by a medical professional or institution (JEN [place], FLASHER ADJUSTER, urgent care, hospital, or longterm...) When possible be specific @ -No Did you speak to anyone other than the patient for history (EMS, parent, family, police, friend...)? What history was obtained from this source @ -No Did you review nursing and triage notes (agree or disagree)? Why? @ -I reviewed and agree with nursing and triage notes Were old charts reviewed (outside hosp., previous admission, EMS record, old EKG, old radiological studies, urgent care reports/EKG's, longterm records)? Report findings @ -No old charts were reviewed Differential Diagnosis HSP, ITP, leukemia, vasculitis EKG interpreted by me (3pts min.). @ -As above X-rays interpreted by me (1pt min.). @ -None done CT interpreted by me (1pt min.). @ -None done U/S interpreted by me (1pt. min.). @ -None done What testing was considered but not performed or refused? (CT, X-rays, U/S, labs)? Why? @ -None What meds were considered but not given or refused? Why? @ -None Did you discuss the management of the patient with other professionals (professionals i.e. JEN [place], FLASHER ADJUSTER, lab, RT, psych nurse, social media marketer, mechanical design engineer products, teacher, small business banking officer, case resolution specialist)? Give summary @ -No Was smoking cessation discussed for >3mins.? @ -No Was critical care preformed (if so, how long)? @ -No Were there social determinants of health that impacted care today? How? (Homelessness, low income, unemployed, alcoholism, drug addiction, transportation, low edu. Level, literacy, decrease access to med. care, snf, rehab)? @ -No Was there de-escalation of care discussed even if they declined (Discuss DNR or withdrawal of care, Hospice)? DNR status @ -No What co-morbidities impacted this encounter? (DM, HTN, Smoking, COPD, CAD, Cancer, CVA, ARF, Chemo, Hep., AIDS, mental health diagnosis, sleep apnea, morbid obesity)? @ -None Was patient admitted / discharged? Hospital course, mention meds given and route, prescriptions, significant lab abnormalities, going to OR and other pertinent info. @22-year-old female with rash to the lower legs. This is erythematous, concerning for petechiae, nonpalpable. Patient received laboratory test including CBC, CMP, and PT/INR. Laboratory testing is unremarkable. Patient should follow-up with her primary care provider regarding this rash. Undiagnosed new problem with uncertain prognosis? @ -No Drug Therapy requiring intensive monitoring for toxicity (Heparin, Nitro, Insulin, Cardizem)? @ -No Were any procedures done? @ -No Diagnosis/symptom? @Petechial rash Acute, or Chronic, or Acute on Chronic? @ -Acute Uncomplicated (without systemic symptoms) or Complicated (systemic symptoms)? @ -Default Side effects of treatment? @ -No Exacerbation, Progression, or Severe Exacerbation? @ -No Poses a threat to life or bodily function? How? (Chest pain, [place], [place], pneumonia, PE, COPD, DKA, ARF, appy, cholecystitis, CVA, Diverticulitis, Homicidal, Suicidal, threat to staff... and all critical care pts) @Low risk at this time - Lab Data Result diagrams: 06/21/23 00:51 06/21/23 00:51 Lab Results 06/21/23 06/21/23 06/21/23 Range/Units 00:51 00:51 00:51 WBC 8.0 (3.8-10.6) k/uL RBC 3.85 (3.80-5.40) m/uL Hgb 11.5 (11.4-16.0) gm/dL Hct 35.8 (34.0-46.0) % MCV 92.9 (80.0-100.0) fL MCH 30.0 (25.0-35.0) pg MCHC 32.3 (31.0-37.0) g/dL RDW 13.8 (11.5-15.5) % Plt Count 234 (150-450) k/uL MPV 8.5 Neutrophils % 69 % Lymphocytes % 22 % Monocytes % 6 % Eosinophils % 1 % Basophils % 1 % Neutrophils # 5.5 (1.3-7.7) k/uL Lymphocytes # 1.8 (1.0-4.8) k/uL Monocytes # 0.5 (0-1.0) k/uL Eosinophils # 0.1 (0-0.7) k/uL Basophils # 0.1 (0-0.2) k/uL PT 12.0 (10.0-12.5) sec INR 1.1 (<1.2) APTT 25.2 (22.0-30.0) sec Sodium 138 (137-145) mmol/L Potassium 3.8 (3.5-5.1) mmol/L Chloride 110 H (98-107) mmol/L Carbon Dioxide 20 L (22-30) mmol/L Anion Gap 8 mmol/L BUN 11 (7-17) mg/dL Creatinine 0.63 (0.52-1.04) mg/dL Est GFR (CKD-EPI)AfAm >90 (>60 ml/min/1.73 sqM) Est GFR (CKD-EPI)NonAf >90 (>60 ml/min/1.73 sqM) Glucose 77 (74-99) mg/dL Calcium 9.4 (8.4-10.2) mg/dL Total Bilirubin 0.6 (0.2-1.3) mg/dL AST 28 (14-36) U/L ALT 26 (4-34) U/L Alkaline Phosphatase 83 (38-126) U/L Total Protein 7.2 (6.3-8.2) g/dL Albumin 4.3 (3.5-5.0) g/dL Disposition Clinical Impression: Petechial rash Disposition: HOME SELF-CARE Instructions (If sedation given, give patient instructions): [place] (ED) Is patient prescribed a controlled substance at d/c from ED?: No Referrals: Gutierrez Graham MD [Primary Care Provider] - 1-2 days Time of Disposition: 02:25
[2023-06-21 01:27] LABS: Basophils # (A) 0.1 k/uL (0-0.2); Basophils % (A) 1 %; Eosinophils # (A) 0.1 k/uL (0-0.7); Eosinophils % (A) 1 %; HCT 35.8 % (34.0-46.0); HGB 11.5 gm/dL (11.4-16.0); Lymphocytes # (A) 1.8 k/uL (1.0-4.8); Lymphocytes % (A) 22 %; MCHC 32.3 g/dL (31.0-37.0); MCV 92.9 fL (80.0-100.0); Mean Platelet Volume 8.5; Monocytes # (A) 0.5 k/uL (0-1.0); Monocytes % (A) 6 %; Neutrophils # (A) 5.5 k/uL (1.3-7.7); Neutrophils % (A) 69 %; Platelet Count 234 k/uL (150-450); RBC 3.85 m/uL (3.80-5.40); RDW 13.8 % (11.5-15.5)
[2023-06-21 01:45] LABS: INR 1.1 (<1.2); Partial Thromboplastin Time 25.2 sec (22.0-30.0)
[2023-06-21 02:11] LABS: ALT 26 U/L (4-34); AST 28 U/L (14-36); African American GFR (CKD) >90 (>60 ml/min/1.73 sqM); Albumin 4.3 g/dL (3.5-5.0); Alkaline Phosphatase 83 U/L (38-126); Anion Gap 8 mmol/L; Blood Urea Nitrogen 11 mg/dL (7-17); Calcium 9.4 mg/dL (8.4-10.2); Carbon Dioxide 20 mmol/L (22-30); Chloride 110 mmol/L (98-107); Glucose 77 mg/dL (74-99); Non-African American GFR(CKD) >90 (>60 ml/min/1.73 sqM); Potassium 3.8 mmol/L (3.5-5.1); Sodium 138 mmol/L (137-145); Total Bilirubin 0.6 mg/dL (0.2-1.3); Total Protein 7.2 g/dL (6.3-8.2)
[2023-06-21 02:55] VITALS: BP 119/80; PULSE 57
== END 2023-06-21 02:32 | disposition home or self-care (01) ==
LOC: EC 23:49
DX: R23.3 Spontaneous ecchymoses (principal); F17.290 Nicotine dependence, other tobacco product, uncomplicated; F12.90 Cannabis use, unspecified, uncomplicated; Z91.011 Allergy to milk products; Z88.0 Allergy status to penicillin; Z91.018 Allergy to other foods; Z91.040 Latex allergy status; Z88.5 Allergy status to narcotic agent
CPT/HCPCS: 36415; 80053; 85025; 85610; 85730; 99283